=== PATIENT | female | born 1970 | race Caucasian/White ===

== ENCOUNTER → 2016-07-15 | Outpatient (CLI) | payer OTHER ==
[2016-07-15 09:53] LABS: ALT 42 U/L (9-52); AST 27 U/L (14-36); Alkaline Phosphatase 92 U/L (38-126); Anion Gap 11 mmol/L; Blood Urea Nitrogen 13 mg/dL (7-17); Calcium 9.8 mg/dL (8.4-10.2); Carbon Dioxide 27 mmol/L (22-30); Chloride 107 mmol/L (98-107); Cholesterol 221 mg/dL (<200); Glucose 93 mg/dL (74-99); HDL Cholesterol 51 mg/dL (40-60); Non-African American GFR(MDRD) >60 (>60 ml/min/1.73 sqM); Potassium 4.2 mmol/L (3.5-5.1); Sodium 145 mmol/L (137-145); Total Bilirubin 0.7 mg/dL (0.2-1.3); Total Protein 7.5 g/dL (6.3-8.2); Triglycerides 66 mg/dL (<150)
== END | disposition home or self-care (01) ==
LOC: LABWHC1 08:34
PROVIDERS: ATTEND Internal Medicine Interventional Cardiology
DX: E78.2 Mixed hyperlipidemia (principal)
CPT/HCPCS: 36415; 80053; 80061

== ENCOUNTER → 2016-07-24 | Outpatient (CLI) | payer OTHER ==
--- NOTE | 2016-07-24 10:58 | XR ---
EXAMINATION TYPE: XR knee complete RT DATE OF EXAM: 07/24/2016 10:54 AM COMPARISON: NONE HISTORY: Pain TECHNIQUE: Four views are submitted. FINDINGS: Mild narrowing and hypertrophic change medial compartment of the knee and patellofemoral joint. Osse ous structures are intact. No acute fracture seen. IMPRESSION: 1. No acute fracture or dislocation. 2. Mild osteoarthritis.
== END | disposition home or self-care (01) ==
LOC: RADXRMAIN 10:19
PROVIDERS: ATTEND Internal Medicine
DX: M17.11 Unilateral primary osteoarthritis, right knee (principal)

== ENCOUNTER → 2016-08-08 | Outpatient (CLI) | payer OTHER ==
--- NOTE | 2016-08-08 11:04 | US ---
EXAMINATION TYPE: US pelvic complete DATE OF EXAM: 08/08/2016 10:41 AM COMPARISON: CT on PACS CLINICAL HISTORY: R10.2 Pelvic Pain. Bilateral pelvic pain and dyspareunia per patient; Hysterectomy; per patient TECHNIQUE: Transabdominal (TA) Date of LMP: 12 years ago EXAM MEASUREMENTS: Uterus: surgically removed Endometrial Stripe: surgically removed Right Ovary: 2.0 x 1.5 x 1.1 cm Left Ovary: 1.7 x 1.9x 1.0 cm TECHNOLOGIST IMPRESSION: wnl 1. Uterus: surgically removed 2. Endometrium: surgically removed 3. Right Ovary: wnl; small follicles are noted 4. Left Ovary: wnl: small follicles are noted Spectral, color and waveform doppler imaging shows good arterial and venous flow within the ovaries ; there is no evidence for ovarian torsion. 5. Bilateral Adnexa: wnl 6. Posterior cul-de-sac: wnl 7. No masses seen within proximal and mid transabdominal views of vagina. IMPRESSION: STATUS POST HYSTERECTOMY.
== END ==
LOC: RADUSWWP 10:25
PROVIDERS: ATTEND Obstetrics & Gynecology
DX: R10.2 Pelvic and perineal pain (principal); Z90.710 Acquired absence of both cervix and uterus
CPT/HCPCS: 76856; 93975

== ENCOUNTER → 2016-09-12 | Outpatient (CLI) | payer OTHER ==
--- NOTE | 2016-09-13 08:04 | US ---
EXAMINATION TYPE: US thyroid st tissue head/neck DATE OF EXAM: 09/12/2016 4:31 PM COMPARISON: NONE CLINICAL HISTORY: R22.0 Localized swelling, mass and lump, head. Stopped smoking and patient felt nec k is enlarging. GLAND SIZE: Right Lobe: 5.1 x 2.1 x 1.8 cm Overall Parenchyma: homogenous Left Lobe: 0.5 x 0.3 x 0.4 cm Overall Parenchyma: homogeneous Isthmus Thickness: 0.3cm NODULES RIGHT: # of nodules measured on right: 1 1. 1.2 X 0.9 x 0.9 cm hypoechoic solid nodule at the mid pole with well-defined margins. This nodul e is wider than tall and shows intranodular vascularity. Prior size: RECOVERY COLLECTOR LEFT: # of nodules measured on left: 1 1. 0.5 X 0.4 x 0.3 cm hypoechoic solid nodule at the upper pole with well-defined margins. This nod ule is wider than tall and shows intranodular vascularity. Prior size: RECOVERY COLLECTOR ISTHMUS: # of nodules measured in the isthmus: 0 Bilateral neck scanned, 1.8cm left sided lymph node seen IMPRESSION: 1. Slight prominence of a right lobe thyroid nodule. Consider correlation with nuclear medicine thyro id scan. 2. Subcentimeter left lobe thyroid nodule. 3. No noted within the left neck is prominent at 1.8 cm in length.
== END | disposition home or self-care (01) ==
LOC: RADUSWWP 16:13
PROVIDERS: ATTEND Internal Medicine
DX: E04.1 Nontoxic single thyroid nodule (principal)
CPT/HCPCS: 76536

== ENCOUNTER 2016-09-17 17:35 | Emergency (ER) | payer OTHER ==
[2016-09-17 18:01] VITALS: BP 100/59; PULSE 70; RESP 18; TEMP 98.3
--- NOTE | 2016-09-17 18:27 | ED ---
Upper Extremity HPI - General Chief Complaint: Extremity Injury, Upper Stated Complaint: Fall Time Seen by Provider: 09/17/16 18:13 Source: patient, RN notes reviewed, old records reviewed Mode of arrival: ambulatory Limitations: no limitations - History of Present Illness Initial Comments: Patient is a 46-year-old female with chief complaint of left hand pain for the past 3 days. Patient reports that she was trying to help her having a new shower head. She reports that she was standing on the edge of the tub she lost her bouncing grabbed the shower kiah. Patient reports that she grabbed the shower with her left hand and felt a pulling sensation. She states that since then she's noticed some bruising over. She also has some tenderness over the snuffbox. Patient denies any fever or chills. She denies any decreased range of motion of the wrist hand or fingers. She states that is just tender to touch swollen and bruised. Patient states she is right-handed. Denies any other injuries from the fall. Patient denies any recent fever, chills, shortness of breath, chest pain, back pain, abdominal pain, nausea vomiting, numbness or tingling, dysuria or hematuria, constipation or diarrhea, headaches or visual changes, or any other current symptoms Place: home - Related Data Home Medications Medication Instructions Recorded Confirmed Aspirin 81 mg PO DAILY 07/12/14 12/11/15 HYDROcodone/APAP 10-325MG [Prentiss 0.5 - 1 tab PO QID PRN 10/10/15 12/11/15 10-325] Butalb/APAP/Caff 50-325-40Mg 1 tab PO DAILY PRN 12/03/15 12/11/15 [Fioricet 50-325-40] Aspirin EC [Ecotrin] 162 mg PO ONCE 12/11/15 12/11/15 Allergies Allergy/AdvReac Type Severity Reaction Status Date / Time Penicillins Allergy Rash/Hives Verified 09/17/16 18:00 pregabalin [From Lyrica] Allergy Swelling Verified 09/17/16 18:00 Review of Systems ROS Statement: Those systems with pertinent positive or pertinent negative responses have been documented in the HPI. ROS Other: All systems not noted in ROS Statement are negative. Past Medical History Past Medical History: GERD/Reflux, Hyperlipidemia Additional Past Medical History / Comment(s): FREQUENT VOMITING, LOOSE BOWELS, HX HYPOTENSION, STATES HAS CYST ON RIGHT OVARY chronic pain syndrome ddd History of Any Multi-Drug Resistant Organisms: None Reported Past Surgical History: Appendectomy, Hysterectomy Additional Past Surgical History / Comment(s): D&C Past Anesthesia/Blood Transfusion Reactions: No Reported Reaction Past Psychological History: No Psychological Hx Reported Smoking Status: Current every day smoker Past Alcohol Use History: None Reported Past Drug Use History: None Reported General Exam Limitations: no limitations General appearance: alert, in no apparent distress Head exam: Present: atraumatic, normocephalic, normal inspection Eye exam: Present: normal appearance, PERRL, EOMI. Absent: scleral icterus, conjunctival injection, periorbital swelling ENT exam: Present: normal exam, mucous membranes moist Neck exam: Present: normal inspection. Absent: tenderness, meningismus, lymphadenopathy Respiratory exam: Present: normal lung sounds bilaterally. Absent: respiratory distress, wheezes, rales, rhonchi, stridor Cardiovascular Exam: Present: regular rate, normal rhythm, normal heart sounds. Absent: systolic murmur, diastolic murmur, rubs, gallop, clicks GI/Abdominal exam: Present: soft, normal bowel sounds. Absent: distended, tenderness, guarding, rebound, rigid Extremities exam: Present: normal inspection, full ROM, normal capillary refill. Absent: tenderness, pedal edema, joint swelling, calf tenderness Left Upper Arm exam: Present: normal inspection, full ROM Elbow exam: Present: normal inspection, full ROM Forearm Wrist exam: Present: normal inspection, full ROM, tenderness over anatomical snuff box Hand Wrist exam: Present: normal inspection, full ROM, tenderness (Over the thumb and anatomical snuffbox. Evidence of bruising over the thumb.) Neuro motor exam: Present: wrist extension intact, thumb opposition intact, thumb adduction intact, fingers 2-5 abduction intact. Absent: thumb IP flexion intact (Patient has bruising over thumb and snuff box. ) Neurosensory exam: Present: 2-point discrimination Vascular: Present: normal capillary refill Back exam: Present: normal inspection Neurological exam: Present: alert, oriented X3, CN II-XII intact Psychiatric exam: Present: normal affect, normal mood Skin exam: Present: warm, dry, intact, normal color. Absent: rash Course Vital Signs 09/17/16 17:57 Temperature 98.3 F Pulse Rate 70 Respiratory 18 Rate Blood Pressure 100/59 O2 Sat by Pulse 99 Oximetry Procedures - Orthopedic Splinting/Casting Injury #1 Side: left Upper Extremity Injury Location: hand Upper Extremity Immobilizer: thumb spica Medical Decision Making - Medical Decision Making Patient is a 46-year-old female with left wrist and hand pain after a fall 2 days ago. Patient was playing on a shower edge and grabbed the shower kiah and pulled her hand and wrist patient is in some bruising over the dorsal thumb. She is tender in the snuffbox. Patient placed any thumb spica splint. Discussed with the x-ray showed no significant fractures. Patient advised to follow-up with orthopedic in one week if symptoms continue to persist. Patient grades the treatment plan will comply. Return parameters were discussed. - Radiology Data Radiology results: report reviewed Hand and wrist xray are negative. No distress. Disposition Clinical Impression: Thumb contusion, Hand strain Disposition: HOME SELF-CARE Condition: Good Instructions: Hand Sprain (ED) Additional Instructions: Patient denies any Motrin Tylenol. Patient can wear splint for the next week. Take off the splint. Reevaluate if still in pain follow-up with orthopedic physician. Referrals: Jayson Shipman MD [Primary Care Provider] - 1-2 days Time of Disposition: 18:26
--- NOTE | 2016-09-17 19:19 | XR ---
EXAMINATION TYPE: XR hand complete LT DATE OF EXAM: 09/17/2016 6:13 PM COMPARISON: NONE HISTORY: Pain TECHNIQUE: 3 view left hand FINDINGS: No acute fractures are evident. Joint spaces are preserved. Soft tissues are normal. Follow-up studies can be performed 7-10 days from acute trauma for continued pain. IMPRESSION: 1. Normal three-view left hand
--- NOTE | 2016-09-17 19:20 | XR ---
EXAMINATION TYPE: XR wrist complete LT DATE OF EXAM: 09/17/2016 6:13 PM COMPARISON: NONE HISTORY: Pain fall TECHNIQUE: 4 view left wrist FINDINGS: No acute fractures are evident. Soft tissues appear normal. There is pain at the anatomic snuff box, nuclear medicine bone scan would be recommended for addition al evaluation. Follow-up exams can be performed 7-10 days from acute trauma for continued pain. IMPRESSION: 1. Normal 4 view left wrist
== END 2016-09-17 18:34 | disposition home or self-care (01) ==
LOC: EC 17:35
DX: S66.912A Strain of unspecified muscle, fascia and tendon at wrist and hand level, left hand, initial encounter (principal); S60.012A Contusion of left thumb without damage to nail, initial encounter; G89.4 Chronic pain syndrome; Z79.82 Long term (current) use of aspirin; F17.200 Nicotine dependence, unspecified, uncomplicated; Z88.0 Allergy status to penicillin; Z88.8 Allergy status to other drugs, medicaments and biological substances; W01.0XXA Fall on same level from slipping, tripping and stumbling without subsequent striking against object, initial encounter; Y92.002 Bathroom of unspecified non-institutional (private) residence as the place of occurrence of the external cause; Y93.89 Activity, other specified
CPT/HCPCS: 29125; 99284

== ENCOUNTER → 2016-09-23 | Outpatient (CLI) | payer OTHER ==
--- NOTE | 2016-09-23 12:20 | NM ---
EXAMINATION TYPE: NM thyroid image only DATE OF EXAM: 09/23/2016 11:05 AM COMPARISON: Correlation ultrasound 09/12/2016 HISTORY: 46-year-old female with swelling TECHNIQUE: After the intravenous administration of 11.0 mCi Tc 99m Sodium pertechnetate, thyroid scan александр was performed anterior and oblique views. FINDINGS: There is homogeneous glandular activity. No discrete hot or cold nodule is seen to correspond to the ultrasound findings. IMPRESSION: Homogeneous glandular uptake.
== END | disposition home or self-care (01) ==
LOC: RADNMMAIN 10:21
PROVIDERS: ATTEND Internal Medicine
DX: E07.89 Other specified disorders of thyroid (principal); R22.0 Localized swelling, mass and lump, head; Z88.0 Allergy status to penicillin
CPT/HCPCS: 78013; A9512

== ENCOUNTER 2016-10-03 15:16 | Emergency (ER) | payer OTHER ==
[2016-10-03 15:55] VITALS: RESP 18
[2016-10-03] MEDS ORDERED: HYDROmorphone 1 MG/ML 1 ML SYRINGE IVP STA ×2 (16:01→17:12)
--- NOTE | 2016-10-03 16:13 | ED ---
General Adult HPI - General Chief complaint: Abdominal Pain Stated complaint: Neck Pain Time Seen by Provider: 10/03/16 15:33 Source: patient, RN notes reviewed Mode of arrival: wheelchair Limitations: no limitations - History of Present Illness Initial comments: patient is a 46-year-old female presents emergency room for evaluation of right- sided pain. Patient states he was cleaning her house yesterday began having pain under her ribs on the right side. Patient states the pain is worse when she takes a deep breath. Denies shortness of breath. patient denies chest pain. Patient states she has extreme pain when pressing over the right upper quadrant area. Patient denies any nausea or vomiting. Patient states that her primary care provider today and she was sent here for a CT to rule out kidney stones. patient states she was told she did not have kidney stones. Patient states she's here because she wants the pain to go away. Patient denies nausea or vomiting. Patient states she has a history of appendectomy, hysterectomy. Patient denies fevers or chills. Patient denies cough. Patient states he takes medical marijuana for chronic pain. Patient states marijuana is not helping her pain. - Related Data Home Medications Medication Instructions Recorded Confirmed Vitamin C/Biotin [Hair, Skin and 1 tab PO DAILY 10/03/16 10/03/16 Nails] Previous Rx's Medication Instructions Recorded Levofloxacin [Levaquin] 500 mg PO DAILY 6 Days 10/03/16 Allergies Allergy/AdvReac Type Severity Reaction Status Date / Time Penicillins Allergy Rash/Hives Verified 10/03/16 15:49 pregabalin [From Lyrica] Allergy Swelling Verified 10/03/16 15:49 Review of Systems ROS Statement: Those systems with pertinent positive or pertinent negative responses have been documented in the HPI. ROS Other: All systems not noted in ROS Statement are negative. Past Medical History Past Medical History: GERD/Reflux, Hyperlipidemia Additional Past Medical History / Comment(s): FREQUENT VOMITING, LOOSE BOWELS, HX HYPOTENSION, STATES HAS CYST ON RIGHT OVARY chronic pain syndrome ddd History of Any Multi-Drug Resistant Organisms: None Reported Past Surgical History: Appendectomy, Hysterectomy Additional Past Surgical History / Comment(s): D&C Past Anesthesia/Blood Transfusion Reactions: No Reported Reaction Past Psychological History: No Psychological Hx Reported Smoking Status: Former smoker Past Alcohol Use History: None Reported Past Drug Use History: Marijuana General Exam - General Exam Comments Initial Comments: sitting in exam room, no acute distress. Limitations: no limitations General appearance: alert Head exam: Present: atraumatic, normocephalic, normal inspection Eye exam: Present: normal appearance ENT exam: Present: normal exam Neck exam: Present: normal inspection Respiratory exam: Present: normal lung sounds bilaterally, chest wall tenderness (lower anterior ribs). Absent: respiratory distress Cardiovascular Exam: Present: regular rate, normal rhythm, normal heart sounds GI/Abdominal exam: Present: soft, tenderness (RUQ), normal bowel sounds. Absent : distended Extremities exam: Present: normal inspection Back exam: Present: normal inspection Neurological exam: Present: alert, oriented X3, CN II-XII intact, normal gait Psychiatric exam: Present: normal affect, normal mood Skin exam: Present: warm, dry, intact, normal color. Absent: rash Course Vital Signs 10/03/16 10/03/16 10/03/16 15:26 15:50 17:02 Temperature 99.2 F 99.3 F Pulse Rate 86 78 Respiratory 20 18 18 Rate Blood Pressure 112/56 113/59 O2 Sat by Pulse 97 97 Oximetry Medical Decision Making - Medical Decision Making Patient is a 46-year-old female presents to the emergency room for evaluation right-sided pain. I did review the CT. CT abdomen/pelvis suggestive of right lower lobe infiltrates or atelectasis and also cystitis. Labs showed no concerning findings. Will treat patient for pneumonia and cystitis and placed patient on Levaquin. Patient states she is feeling better after pain medications given. Vitals are stable. advised patient to follow-up with her primary care provider in 24-48 hours for reevaluation. Patient states she has since everything that was discussed with her. Return parameters discussed. Case discussed with Dr. Castellon. - Lab Data Result diagrams: 10/03/16 16:14 10/03/16 16:14 Lab Results 10/03/16 10/03/16 10/03/16 Range/Units 16:14 16:14 16:14 WBC 9.6 (3.8-10.6) k/uL RBC 4.37 (3.80-5.40) m/uL Hgb 14.3 (11.4-16.0) gm/dL Hct 41.7 (34.0-46.0) % MCV 95.5 (80.0-100.0) fL MCH 32.7 (25.0-35.0) pg MCHC 34.3 (31.0-37.0) g/dL RDW 11.9 (11.5-15.5) % Plt Count 260 (150-450) k/uL Neutrophils % 65 % Lymphocytes % 22 % Monocytes % 7 % Eosinophils % 2 % Basophils % 0 % Neutrophils # 6.2 (1.3-7.7) k/uL Lymphocytes # 2.1 (1.0-4.8) k/uL Monocytes # 0.7 (0-1.0) k/uL Eosinophils # 0.2 (0-0.7) k/uL Basophils # 0.0 (0-0.2) k/uL Sodium 141 (137-145) mmol/L Potassium 4.2 (3.5-5.1) mmol/L Chloride 104 (98-107) mmol/L Carbon Dioxide 27 (22-30) mmol/L Anion Gap 10 mmol/L BUN 8 (7-17) mg/dL Creatinine 0.70 (0.52-1.04) mg/dL Est GFR (MDRD) Af Amer >60 (>60 ml/min/1.73 sqM) Est GFR (MDRD) Non-Af >60 (>60 ml/min/1.73 sqM) Glucose 101 H (74-99) mg/dL Calcium 9.7 (8.4-10.2) mg/dL Total Bilirubin 0.5 (0.2-1.3) mg/dL AST 20 (14-36) U/L ALT 35 (9-52) U/L Alkaline Phosphatase 108 (38-126) U/L Total Protein 7.3 (6.3-8.2) g/dL Albumin 4.4 (3.5-5.0) g/dL Amylase 78 (30-110) U/L Lipase 194 (23-300) U/L - Radiology Data Radiology results: report reviewed, image reviewed Disposition Clinical Impression: Right lower lobe pneumonia, Cystitis Disposition: HOME SELF-CARE Condition: Good Instructions: Pneumonia (ED), Urinary Tract Infection in Women (ED) Additional Instructions: Take antibiotics as directed. Take prescribed pain medications as needed. Please follow up with primary care provider in 24-48 hours for reevaluation. If any new symptom arises or symptoms worsen, return to ER as soon as possible. Prescriptions: Levofloxacin [Levaquin] 500 mg PO DAILY 6 Days Referrals: Jayson Shipman MD [Primary Care Provider] - 1-2 days Time of Disposition: 17:09
[2016-10-03 16:32] LABS: Basophils % (A) 0 %; CH 33.3; Eosinophils # (A) 0.2 k/uL (0-0.7); Eosinophils % (A) 2 %; HCT 41.7 % (34.0-46.0); HDW 2.47; HGB 14.3 gm/dL (11.4-16.0); Luc # (Auto) 0.35; Luc % (Auto) 4; Lymphocytes # (A) 2.1 k/uL (1.0-4.8); Lymphocytes % (A) 22 %; MCH 32.7 pg (25.0-35.0); MCHC 34.3 g/dL (31.0-37.0); MCV 95.5 fL (80.0-100.0); Mean Platelet Volume 6.9; Monocytes # (A) 0.7 k/uL (0-1.0); Monocytes % (A) 7 %; Neutrophils # (A) 6.2 k/uL (1.3-7.7); Neutrophils % (A) 65 %; RBC 4.37 m/uL (3.80-5.40); RDW 11.9 % (11.5-15.5); WBC 9.6 k/uL (3.8-10.6); WBC (Perox) 9.23
[2016-10-03 16:33] LABS: ALT 35 U/L (9-52); AST 20 U/L (14-36); Alkaline Phosphatase 108 U/L (38-126); Amylase 78 U/L (30-110); Anion Gap 10 mmol/L; Blood Urea Nitrogen 8 mg/dL (7-17); Calcium 9.7 mg/dL (8.4-10.2); Carbon Dioxide 27 mmol/L (22-30); Chloride 104 mmol/L (98-107); Glucose 101 mg/dL (74-99); Non-African American GFR(MDRD) >60 (>60 ml/min/1.73 sqM); Potassium 4.2 mmol/L (3.5-5.1); Sodium 141 mmol/L (137-145); Total Bilirubin 0.5 mg/dL (0.2-1.3); Total Protein 7.3 g/dL (6.3-8.2)
[2016-10-03 17:03] VITALS: BP 113/59; PULSE 78; TEMP 99.3
[2016-10-03] MEDS ORDERED: LEVOFLOXACIN 500 MG TAB PO STA (17:12)
== END 2016-10-03 17:45 | disposition home or self-care (01) ==
LOC: EC 15:16
DX: J18.9 Pneumonia, unspecified organism (principal); N30.90 Cystitis, unspecified without hematuria; M54.2 Cervicalgia; K21.9 Gastro-esophageal reflux disease without esophagitis; Z87.891 Personal history of nicotine dependence; Z79.899 Other long term (current) drug therapy; Z88.0 Allergy status to penicillin; Z88.8 Allergy status to other drugs, medicaments and biological substances; Z90.49 Acquired absence of other specified parts of digestive tract
CPT/HCPCS: 36415; 80053; 82150; 83690; 85025; 99284; 96374; 96376; J1170; 74176

== ENCOUNTER → 2016-10-03 | Outpatient (CLI) | payer OTHER ==
--- NOTE | 2016-10-03 14:28 | CT ---
EXAMINATION TYPE: CT abdomen pelvis wo con DATE OF EXAM: 10/03/2016 2:15 PM COMPARISON: 06/21/2013 HISTORY: Patient having right sided pain, severe CT DLP: 871 mGycm FINDINGS: LUNG BASES: Tiny right-sided pleural effusion with mild patchy density right lower lobe may reflect a telectasis or infiltrate. Correlate clinically. LIVER/GB: The gallbladder is unremarkable. No space-occupying hepatic lesion. PANCREAS: No pancreatic mass identified. No inflammatory process seen. SPLEEN: No evidence for splenomegaly. No intrasplenic lesions seen. ADRENALS: No adrenal nodules identified. No evidence for thickening. KIDNEYS: No evidence for renal mass. No nephrolithiasis. No hydronephrosis. Mild urinary bladder wall thickening may be on the basis of cystitis. Correlate clinically. BOWEL: Previous appendectomy change. No evidence of bowel obstruction. No inflammatory process. Lymph nodes: No evidence for adenopathy greater than 1 cm. Abdominal aorta: Atheromatous changes seen. No evidence for aneurysm. Genital organs: Hysterectomy changes noted. Other: No significant abnormality. IMPRESSION: 1.. Mild urinary bladder wall thickening may be on the basis of cystitis. Correlate clinically. 2. SMALL RIGHT LOWER LOBE PATCHY DENSITY MAY REFLECT INFILTRATE OR ATELECTASIS. SMALL EFFUSION ALSO N OTED.
== END | disposition home or self-care (01) ==
LOC: RADCTMAIN 13:55
PROVIDERS: ATTEND Internal Medicine
DX: N32.89 Other specified disorders of bladder (principal); R31.9 Hematuria, unspecified; R10.9 Unspecified abdominal pain; Z88.0 Allergy status to penicillin; Z88.6 Allergy status to analgesic agent
CPT/HCPCS: 74176

== ENCOUNTER 2017-01-06 14:50 | Emergency (ER) | payer OTHER ==
--- NOTE | 2017-01-06 15:21 | ED ---
General Adult HPI - General Chief complaint: Extremity Injury, Lower Stated complaint: Vericose Vein L leg Time Seen by Provider: 01/06/17 14:59 Source: patient Mode of arrival: ambulatory Limitations: no limitations - History of Present Illness Initial comments: 46 year-old female patient presents to emergency department today for evaluation of a distended vein on her anterior left lower leg. Patient ate about 20 minutes ago her legs started to itch and burn, she looked down and saw that the vein had popped out. Patient states that it is hard to touch. She states that she has pain radiating from the site up into her groin and down into her foot. Patient denies any numbness or tingling. States she does have a history of varicose veins but this seems different. She denies any chest pain , headache, dizziness, weakness, shortness of breath, palpitations, abdominal pain, nausea, vomiting, diarrhea, hematuria, dysuria, urinary frequency or urgency. She denies any rash, fever, or chills. Patient states she does have a family history of blood clots and is concerned that she may have one. - Related Data Home Medications Medication Instructions Recorded Confirmed Vitamin C/Biotin [Hair, Skin and 1 tab PO DAILY 10/03/16 10/03/16 Nails] Previous Rx's Medication Instructions Recorded Levofloxacin [Levaquin] 500 mg PO DAILY 6 Days 10/03/16 Allergies Allergy/AdvReac Type Severity Reaction Status Date / Time Penicillins Allergy Rash/Hives Verified 01/06/17 14:59 pregabalin [From Lyrica] Allergy Swelling Verified 01/06/17 14:59 Review of Systems ROS Statement: Those systems with pertinent positive or pertinent negative responses have been documented in the HPI. ROS Other: All systems not noted in ROS Statement are negative. Past Medical History Past Medical History: GERD/Reflux, Hyperlipidemia Additional Past Medical History / Comment(s): FREQUENT VOMITING, LOOSE BOWELS, HX HYPOTENSION, STATES HAS CYST ON RIGHT OVARY chronic pain syndrome ddd History of Any Multi-Drug Resistant Organisms: None Reported Past Surgical History: Appendectomy, Hysterectomy Additional Past Surgical History / Comment(s): D&C Past Anesthesia/Blood Transfusion Reactions: No Reported Reaction Past Psychological History: No Psychological Hx Reported Smoking Status: Former smoker Past Alcohol Use History: None Reported Past Drug Use History: Marijuana General Exam Limitations: no limitations General appearance: alert, in no apparent distress Respiratory exam: Present: normal lung sounds bilaterally. Absent: respiratory distress, wheezes, rales, rhonchi, stridor Cardiovascular Exam: Present: regular rate, normal rhythm, normal heart sounds. Absent: systolic murmur, diastolic murmur, rubs, gallop, clicks GI/Abdominal exam: Present: soft, normal bowel sounds. Absent: distended, tenderness, guarding, rebound, rigid Extremities exam: Present: full ROM, normal capillary refill, other (Skin pink, warm, and dry. Cap refill less than 3 seconds. Post tibial and pedal pulses intact and equal bilaterally.). Absent: normal inspection (Patient has a distended vein to the anterior left lower leg. No surrounding erythema, tenderness, area does feel indurated. Patient has other multiple areas of varicose veins posterior to the right upper thigh.), tenderness, pedal edema, joint swelling, calf tenderness Neurological exam: Present: alert, oriented X3, CN II-XII intact Psychiatric exam: Present: normal affect, normal mood Skin exam: Present: warm, dry, intact, normal color. Absent: rash Course Vital Signs 01/06/17 01/06/17 14:56 17:06 Temperature 98.2 F 97.6 F Pulse Rate 71 68 Respiratory 18 16 Rate Blood Pressure 104/68 105/72 O2 Sat by Pulse 98 98 Oximetry Medical Decision Making - Medical Decision Making Reported sexual female patient presents to emergency department today for evaluation of a distended vein to her left anterior lower leg. Ultrasound Doppler was obtained and did showed superficial thrombophlebitis to the left lower extremity. Patient was discharged home with injections to wear her SHAUNA hose which she does already have, take ibuprofen 3 times a day, and apply warm compresses to the site. Patient struck to the father primary care physician in one to 2 days for recheck. Instructed to return immediately for any new, worsening, or concerning symptoms. Patient verbalizes understanding and agrees with this plan. Disposition Clinical Impression: Varicose veins of left lower extremity, Acute superficial venous thrombosis of left lower extremity Disposition: HOME SELF-CARE Condition: Good Instructions: Varicose Veins (ED), Superficial Thrombophlebitis (ED) Additional Instructions: Warm compresses to painful/swollen area. Wear SHAUNA hose. Take ibuprofen for symptom relief. Follow-up with primary care physician for recheck in 1-2 days. Return immediately for any new, worsening, or concerning symptoms. Referrals: Jayson Shipman MD [Primary Care Provider] - 1-2 days Time of Disposition: 17:03
--- NOTE | 2017-01-06 17:01 | US ---
EXAMINATION TYPE: US venous doppler duplex LE LT DATE OF EXAM: 01/06/2017 3:38 PM COMPARISON: NONE CLINICAL HISTORY: 46-year-old female Varicose vein on left anterior arreguin. SIDE PERFORMED: Left TECHNIQUE: The lower extremity deep venous system is examined utilizing real time linear array sonog amaris with graded compression, doppler sonography and color-flow sonography. FINDINGS: VESSELS IMAGED: External Iliac Vein (EIV) Common Femoral Vein Deep Femoral Vein Greater Saphenous Vein * Femoral Vein Popliteal Vein Small Saphenous Vein * Proximal Calf Veins (* superficial vessels) Left Leg: Negative for DVT. There is some mild soft tissue swelling of the anterior left leg. There appears to be a thrombosed, n oncompressible superficial vein here. IMPRESSION: 1. No evidence for DVT within the left lower extremity imaged from the groin to the upper calf. 2. Findings suggest SVT of a small anterior leg vein.
[2017-01-06 17:07] VITALS: BP 105/72; PULSE 68; RESP 16; TEMP 97.6
== END 2017-01-06 17:12 | disposition home or self-care (01) ==
LOC: EC 14:50
DX: I82.812 Embolism and thrombosis of superficial veins of left lower extremity (principal); I83.893 Varicose veins of bilateral lower extremities with other complications; I80.02 Phlebitis and thrombophlebitis of superficial vessels of left lower extremity; Z87.891 Personal history of nicotine dependence; Z79.899 Other long term (current) drug therapy; Z88.0 Allergy status to penicillin; Z88.8 Allergy status to other drugs, medicaments and biological substances; Z82.49 Family history of ischemic heart disease and other diseases of the circulatory system
CPT/HCPCS: 99283

== ENCOUNTER → 2017-02-03 | Outpatient (CLI) | payer OTHER | END | disposition home or self-care (01) | LOC: LABWHC1 14:20 | PROVIDERS: ATTEND Internal Medicine Endocrinology, Diabetes & Metabolism | DX: E04.2 Nontoxic multinodular goiter (principal) | CPT/HCPCS: 36415; 84439; 84443 ==

== ENCOUNTER → 2017-02-09 | Outpatient (CLI) | payer OTHER ==
--- NOTE | 2017-02-09 11:29 | FL ---
EXAMINATION TYPE: FL barium swallow w video DATE OF EXAM: 02/09/2017 MODIFIED SWALLOW / DEGLUTITION STUDY CLINICAL HISTORY: Dysphagia. Globus sensation per patient. TECHNIQUE: Deglutition study is performed utilizing thin liquid barium, honey and nectar thick liqui d barium, barium thick applesauce, and barium coated cracker. 56 seconds of fluoroscopic time was uti lized during procedure. Approximately 10 cine sequences were performed. 0 spot images are saved to PA CS. COMPARISON: None. FINDINGS: The oral and pharyngeal phases show satisfactory initiation and propagation with all modali ties tested. Normal mastication is seen with solid modalities tested. There is no evidence of penet ration or aspiration with any modality tested. No significant pharyngeal residue was appreciated. IMPRESSION: Normal deglutition study. Please refer to speech therapist notes for further details if necessary.
== END | disposition home or self-care (01) ==
LOC: RADFLMAIN 10:57
PROVIDERS: ATTEND Internal Medicine
DX: R13.10 Dysphagia, unspecified (principal)
CPT/HCPCS: 74230

== ENCOUNTER → 2017-03-13 | Outpatient (CLI) | payer OTHER ==
--- NOTE | 2017-03-13 16:27 | US ---
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 GLAND SIZE: Right Lobe: 4.9 x 2.3 x 1.2 cm Overall Parenchyma: heterogenous Left Lobe: 4.7 x 1.6 x 1.8 cm Overall Parenchyma: heterogeneous Isthmus Thickness: 0.4 cm NODULES RIGHT: # of nodules measured on right: 1 1. 1.2 X 0.6 x 0.7 cm isoechoic solid nodule at the upper pole with well-defined margins; . This n odule is wider than tall and shows intranodular vascularity. Prior size: 1.2 x 0.9 x 1.0 cm LEFT: # of nodules measured on left: 0 ISTHMUS: # of nodules measured in the isthmus: 0 Bilateral neck scanned, no evidence of lymphadenopathy. Gland is heterogeneous and bulbous appearing. IMPRESSION: Stable nodule right lobe thyroid
== END | disposition home or self-care (01) ==
LOC: LABWHC1 14:47
PROVIDERS: ATTEND Internal Medicine Endocrinology, Diabetes & Metabolism
DX: E04.1 Nontoxic single thyroid nodule (principal); E04.2 Nontoxic multinodular goiter
CPT/HCPCS: 36415; 76536; 84439; 84443

== ENCOUNTER → 2017-06-03 | Outpatient (CLI) | payer OTHER | END | disposition home or self-care (01) | LOC: LABWHC1 08:01 | PROVIDERS: ATTEND Internal Medicine Endocrinology, Diabetes & Metabolism | DX: E03.8 Other specified hypothyroidism (principal) | CPT/HCPCS: 36415; 84443 ==

== ENCOUNTER → 2017-07-20 | Outpatient (CLI) | payer OTHER ==
[2017-07-20 12:53] LABS: T4, Free (Free Thyroxine) 1.45 ng/dL (0.78-2.19)
== END | disposition home or self-care (01) ==
LOC: LABWHC1 11:38
PROVIDERS: ATTEND Internal Medicine Endocrinology, Diabetes & Metabolism
DX: E04.2 Nontoxic multinodular goiter (principal); E03.8 Other specified hypothyroidism
CPT/HCPCS: 36415; 84439; 84443

== ENCOUNTER → 2017-09-23 | Outpatient (CLI) | payer OTHER | END | disposition home or self-care (01) | LOC: LABWHC1 11:32 | PROVIDERS: ATTEND Internal Medicine Endocrinology, Diabetes & Metabolism | DX: E03.8 Other specified hypothyroidism (principal) | CPT/HCPCS: 36415; 84443 ==

== ENCOUNTER → 2017-10-26 | Outpatient (CLI) | payer OTHER | END | disposition home or self-care (01) | LOC: LABWHC1 10:27 | PROVIDERS: ATTEND Internal Medicine Endocrinology, Diabetes & Metabolism | DX: E03.8 Other specified hypothyroidism (principal) | CPT/HCPCS: 36415; 84443 ==

== ENCOUNTER 2017-12-08 07:19 | Emergency (ER) | payer OTHER ==
--- NOTE | 2017-12-08 07:44 | ED ---
Lower Extremity Injury HPI - General Chief Complaint: Extremity Injury, Lower Stated Complaint: left foot pain Time Seen by Provider: 12/08/17 07:35 Source: patient, RN notes reviewed Mode of arrival: ambulatory Limitations: no limitations - History of Present Illness Initial Comments: This is a 47-year-old female presents emergency Department with chief complaint of left foot pain. She states has been going on for several months. She did see her PCP for it and told her that it would be fine did not have any x-rays. Patient states that the pain has been getting worse and states that she has no relief with rest at this time. Patient states that the pain is on her lateral aspect and medial aspect. Patient states that pain is much worse with ambulation. She uses [facility] for other 4 and has had injections states that she does not want to go down that road. Patient states that she is not taking antibiotics for his foot. - Related Data Home Medications Medication Instructions Recorded Confirmed Pcpgpwz-Zvio-Vzma [id number] 1 tab PO Q6HR PRN 12/08/17 12/08/17 [Excedrin] Levothyroxine Sodium [Synthroid] 88 mcg PO DAILY 12/08/17 12/08/17 Previous Rx's Medication Instructions Recorded predniSONE 50 mg PO DAILY #5 tab 12/08/17 Allergies Allergy/AdvReac Type Severity Reaction Status Date / Time gabapentin Allergy Swelling Verified 12/08/17 07:44 naproxen [From Naprosyn] Allergy Verified 12/08/17 07:44 Penicillins Allergy Rash/Hives Verified 12/08/17 07:30 pregabalin [From Lyrica] Allergy Swelling Verified 12/08/17 07:30 Review of Systems ROS Statement: Those systems with pertinent positive or pertinent negative responses have been documented in the HPI. ROS Other: All systems not noted in ROS Statement are negative. Past Medical History Past Medical History: GERD/Reflux, Hyperlipidemia, Thyroid Disorder Additional Past Medical History / Comment(s): FREQUENT VOMITING, LOOSE BOWELS, HX HYPOTENSION, STATES HAS CYST ON RIGHT OVARY chronic pain syndrome ddd History of Any Multi-Drug Resistant Organisms: None Reported Past Surgical History: Appendectomy, Hysterectomy Additional Past Surgical History / Comment(s): D&C Past Anesthesia/Blood Transfusion Reactions: No Reported Reaction Past Psychological History: No Psychological Hx Reported Smoking Status: Former smoker Past Alcohol Use History: None Reported Past Drug Use History: Marijuana General Exam Limitations: no limitations General appearance: alert, in no apparent distress Head exam: Present: atraumatic, normocephalic, normal inspection Respiratory exam: Present: normal lung sounds bilaterally. Absent: respiratory distress, wheezes, rales, rhonchi, stridor Cardiovascular Exam: Present: regular rate, normal rhythm, normal heart sounds. Absent: systolic murmur, diastolic murmur, rubs, gallop, clicks Extremities exam: Present: other (Left foot there is tenderness on lateral medial aspect especially across the arch of the foot. The foot is neurovascular intact there is no malleoli tenderness or tenderness across the Achilles region.) Skin exam: Present: warm, dry, intact, normal color. Absent: rash Course Vital Signs 12/08/17 07:29 Temperature 98.1 F Pulse Rate 77 Respiratory 16 Rate Blood Pressure 100/69 O2 Sat by Pulse 99 Oximetry Medical Decision Making - Medical Decision Making 47-year-old female presented for left foot pain. His been ongoing issue. Patient symptoms more related to plantar fasciitis and tendinitis. Patient states will be given steroids, advised pickup for orthotics will follow-up with Dr. Dejesus. Disposition Clinical Impression: Tendinitis of left foot, Plantar fasciitis Disposition: HOME SELF-CARE Condition: Stable Instructions: Tendinitis (ED), Plantar Fasciitis (ED) Additional Instructions: Please return to the Emergency Department if symptoms worsen or any other concerns. Prescriptions: predniSONE 50 mg PO DAILY #5 tab Is patient prescribed a controlled substance at d/c from ED?: No Referrals: Jayson Shipman MD [Primary Care Provider] - 1-2 days Aldair Dejesus MD [Medical Doctor] - 1-2 days Time of Disposition: 08:44
--- NOTE | 2017-12-08 08:01 | XR ---
EXAMINATION TYPE: XR foot complete LT DATE OF EXAM: 12/08/2017 CLINICAL HISTORY: Left foot pain. TECHNIQUE: Frontal, lateral, and oblique images of the left foot are obtained. COMPARISON: None FINDINGS: There is no acute fracture/dislocation evident in the left foot. The joint spaces in the left foot appear within normal limits. Moderate size inferior calcaneal spur is present. Mild diffus e subcutaneous edema along plantar surface at hind foot level is seen. IMPRESSION: There is moderate size inferior calcaneal spur.
[2017-12-08] MEDS ORDERED: ACET/COD 300 MG/30 MG STARTER PACK 6 TAB BTL PO STA (08:44)
[2017-12-08 09:07] VITALS: BP 100/56; PULSE 88; RESP 20; TEMP 98.3
== END 2017-12-08 09:00 | disposition home or self-care (01) ==
LOC: EC 07:19
DX: M72.2 Plantar fascial fibromatosis (principal); M77.52 Other enthesopathy of left foot and ankle; E07.9 Disorder of thyroid, unspecified; G89.4 Chronic pain syndrome; Z87.891 Personal history of nicotine dependence; Z79.899 Other long term (current) drug therapy; Z88.0 Allergy status to penicillin; Z88.6 Allergy status to analgesic agent; Z88.8 Allergy status to other drugs, medicaments and biological substances
CPT/HCPCS: 99283

== ENCOUNTER → 2018-02-26 | Outpatient (CLI) | payer OTHER | LOC: LABWHC1 08:19 | PROVIDERS: ATTEND Internal Medicine Endocrinology, Diabetes & Metabolism | DX: E03.8 Other specified hypothyroidism (principal) | CPT/HCPCS: 36415; 84443 ==

== ENCOUNTER → 2018-03-10 | Outpatient (CLI) | payer OTHER ==
--- NOTE | 2018-03-10 13:42 | US ---
EXAMINATION TYPE: US thyroid st tissue head/neck DATE OF EXAM: 03/10/2018 COMPARISON: Thyroid ultrasound March 13, 2017 CLINICAL HISTORY: E04.2 MULTINODULAR GOITER. GLAND SIZE: Right Lobe: 4.2 x 1.3 x 1.9 cm Overall Parenchyma: heterogenous with nodular borders Left Lobe: 3.4 x 1.2 x 1.4 cm Overall Parenchyma: heterogeneous with nodular borders Isthmus Thickness: 0.3 cm NODULES RIGHT: # of nodules measured on right: 1 1. 1.1 X 0.8 x 0.8 cm hypoechoic mixed nodule at the upper lateral pole with well-defined margins; . This nodule is wider as is tall and shows intranodular vascularity. Prior size: 1.2 x 0.6 x 0.7 cm LEFT: # of nodules measured on left: 0 ISTHMUS: # of nodules measured in the isthmus: 0 Bilateral neck scanned: no evidence of lymphadenopathy Heterogeneous normal-sized thyroid remains present with stable 1.1 cm peripheral hypoechoic solid nod ule upper pole right thyroid. No significant change. No new nodules are evident. IMPRESSION: Overall stable findings, stable 1.1 cm right thyroid nodule. No new nodules are present.
== END | disposition home or self-care (01) ==
LOC: RADUSWWP 09:58
PROVIDERS: ATTEND Internal Medicine Endocrinology, Diabetes & Metabolism
DX: E04.1 Nontoxic single thyroid nodule (principal)
CPT/HCPCS: 76536

== ENCOUNTER → 2018-04-19 | Outpatient (CLI) | payer OTHER ==
--- NOTE | 2018-04-20 08:07 | MR ---
EXAMINATION TYPE: MR brain/cspine wo DATE OF EXAM: 04/19/2018 COMPARISON: Prior MRI cervical spine March 09, 2013. Prior CT brain October 01, 2012. HISTORY: Headaches, neck pain, rt arm weakness x 4 yrs TECHNIQUE: Multiplanar, multisequence imaging of the cervical spine, brain, and brainstem are all per formed without IV contrast. FINDINGS: BRAIN: Diffusion weighted images demonstrate no evidence of a recent infarct or other diffusion abnormality. There is no extraaxial fluid collection or significant white matter signal abnormality. The ventricu lar system and cisternal spaces are normal in size and appearance. The brain volume is age appropria te. Midline structures demonstrate normal morphology. The craniocervical junction appears within normal limits. Normal vascular flow voids are present. There are few small mucous retention cysts and/or karina yps in the inferior aspect of bilateral maxillary sinuses with mild to minimal left greater than righ t mucosal thickening otherwise paranasal sinuses are clear. The globes are intact bilaterally. IMPRESSION: Incidental mild chronic inferior maxillary sinus disease otherwise unremarkable study. C-SPINE: FINDINGS: Sagittal images of the cervical spine show the craniocervical junction to appear within nor mal limits. The cervical and upper thoracic spinal cord is normal in course, caliber, and signal. V ertebral alignment is anatomic. There is mild disc space narrowing with posterior disc herniations mi ldly effacing anterior thecal sac on sagittal images at C5-C6 and C6-C7 levels redemonstrated. The v ertebral body and intravertebral disk heights otherwise are normal. The bone marrow signal intensity is within normal limits. Axial images show the C2-C3 level to appear within normal limits. Axial images at C3-C4 level show some uncovertebral facet degenerative changes bilaterally with tiny right foraminal disc protrusion, there is mild bilateral neural foraminal narrowing now present. Axial images at C4-C5 level are felt to remain within normal limits. Axial images at C5-C6 level show posterior spur disc complex effacing anterior thecal sac and causing [id number] bilateral neural foraminal narrowing. Finding slightly more prominent versus prior. Axial images at C6-C7 level show posterior spur disc complex effacing anterior thecal sac and causing moderate to advanced left-sided neural foraminal narrowing and mild right-sided neural foraminal ivonne rowing. Progression from prior study is noted. Axial images at C7-T1 level are felt to remain within normal limits. IMPRESSION: Multilevel degenerative changes in the cervical spine with progression from 2013 MRI, mos t prominent findings are noted C6-C7 level.
== END | disposition home or self-care (01) ==
LOC: RADMRIMAIN 19:32
PROVIDERS: ATTEND Internal Medicine
DX: M50.31 Other cervical disc degeneration, high cervical region (principal)
CPT/HCPCS: 70551; 72141

== ENCOUNTER → 2018-07-02 | Outpatient (CLI) | payer OTHER | END | disposition home or self-care (01) | LOC: LABWHC1 09:30 | PROVIDERS: ATTEND Internal Medicine Endocrinology, Diabetes & Metabolism | DX: E03.8 Other specified hypothyroidism (principal); R53.83 Other fatigue | CPT/HCPCS: 36415; 83001 ==

== ENCOUNTER → 2018-07-15 | Outpatient (CLI) | payer OTHER ==
--- NOTE | 2018-07-15 09:18 | CT ---
EXAMINATION TYPE: CT chest wo con DATE OF EXAM: 07/15/2018 COMPARISON: None HISTORY: Left sided rib pain-under left breast and lower CT DLP: 151 mGycm High-resolution noncontrast CT of the chest was performed with the patient in the prone and supine po sitions. Lung and mediastinal window settings are submitted. The lungs appear to be well-aerated. There is no evidence for bronchiectasis, groundglass infiltra te, nodule or mass. Parenchymal scar noted at the right lung base as well as the right middle lobe. M ild scattered subpleural fibrosis within the upper lobes. Mild emphysematous changes noted. No pleura l effusion is identified. I do not see evidence for hilar or mediastinal mass or adenopathy. IMPRESSION: 1. Minimal subpleural fibrosis within the upper lobes. 2 mild emphysematous changes.
== END | disposition home or self-care (01) ==
LOC: RADCTMAIN 08:17
PROVIDERS: ATTEND Internal Medicine
DX: J43.9 Emphysema, unspecified (principal); J94.1 Fibrothorax; R07.9 Chest pain, unspecified; Z88.0 Allergy status to penicillin; Z88.6 Allergy status to analgesic agent; Z88.8 Allergy status to other drugs, medicaments and biological substances
CPT/HCPCS: 71250

== ENCOUNTER → 2018-10-14 | Outpatient (CLI) | payer OTHER ==
--- NOTE | 2018-10-14 08:53 | US ---
EXAMINATION TYPE: US thyroid st tissue head/neck DATE OF EXAM: 10/14/2018 COMPARISON: NONE CLINICAL HISTORY: E04.1 SINGLE THYROID NODULE. GLAND SIZE: Right Lobe: cm Overall Parenchyma: Left Lobe: cm Overall Parenchyma: Isthmus Thickness: cm NODULES RIGHT: # of nodules measured on right: 1. X x cm nodule at the pole with margins; . This nodule is and shows . Prior size: x x cm 2. X x cm nodule at the pole with margins; . This nodule is and shows . Prior size: x x cm 3. X x cm nodule at the pole with margins; . This nodule is and shows . Prior size: x x cm 4. X x cm nodule at the pole with margins; . This nodule is and shows . Prior size: x x cm LEFT: # of nodules measured on left: 1. X x cm nodule at the pole with margins; . This nodule is and shows . Prior size: x x cm 2. X x cm nodule at the pole with margins; . This nodule is and shows . Prior size: x x cm 3. X x cm nodule at the pole with margins; . This nodule is and shows . Prior size: x x cm 4. X x cm nodule at the pole with margins; . This nodule is and shows . Prior size: x x cm ISTHMUS: # of nodules measured in the isthmus: 1. X x cm nodule at the pole with margins; . This nodule is and shows . Prior size: x x cm Bilateral neck scanned, no evidence of lymphadenopathy. IMPRESSION: EXAMINATION TYPE: US thyroid st tissue head/neck DATE OF EXAM: 10/14/2018 COMPARISON: 03/10/2018 and 03/13/2017 CLINICAL HISTORY: E04.1 SINGLE THYROID NODULE. GLAND SIZE: Right Lobe: 4.2 x 1.7 x 1.3 cm Overall Parenchyma: heterogenous Left Lobe: 4.0 x 1.1 x 1.3 cm Overall Parenchyma: heterogeneous Isthmus Thickness: 0.4 cm NODULES RIGHT: # of nodules measured on right: 1 1. 1.0 x 0.6 x 0.7 cm hypoechoic solid nodule at the upper pole with well-defined margins. This no dule is wider than tall and shows intranodular vascularity. Prior size: 1.1 x 0.8 x 0.8 cm LEFT: # of nodules measured on left: 0 ISTHMUS: # of nodules measured in the isthmus: 0 Bilateral neck scanned, no evidence of lymphadenopathy. IMPRESSION: Similar size of the solitary right thyroid nodule measuring up to 1.0 cm (previously 1.1 cm). No new nodules.
[2018-10-14 10:11] LABS: T4, Free (Free Thyroxine) 1.65 ng/dL (0.78-2.19)
== END | disposition home or self-care (01) ==
LOC: RADUSWWP 07:53
PROVIDERS: ATTEND Internal Medicine Endocrinology, Diabetes & Metabolism
DX: E04.1 Nontoxic single thyroid nodule (principal)
CPT/HCPCS: 36415; 76536; 84439; 84443

== ENCOUNTER → 2019-03-15 | Outpatient (CLI) | payer OTHER ==
[2019-03-16 00:57] LABS: T4, Free (Free Thyroxine) 1.3 ng/dL (0.80-1.80)
== END | disposition home or self-care (01) ==
LOC: LABWHC1 16:37
PROVIDERS: ATTEND Internal Medicine Endocrinology, Diabetes & Metabolism
DX: E03.8 Other specified hypothyroidism (principal)
CPT/HCPCS: 36415; 84439; 84443

== ENCOUNTER 2019-04-08 12:45 | Emergency (ER) | payer OTHER ==
[2019-04-08 12:50] VITALS: RESP 18; TEMP 97.8
[2019-04-08] MEDS ORDERED: METOCLOPRAMIDE 5 MG/ML 2 ML VIAL IVP STA (12:52)
[2019-04-08] MEDS ORDERED: diphenhydrAMINE 50 MG/ML 1 ML VIAL IVP STA (12:52)
[2019-04-08] MEDS ORDERED: SODIUM CHLORIDE 0.9% 1,000 ML IV STA (12:53)
--- NOTE | 2019-04-08 12:56 | ED ---
General Adult HPI - General Chief complaint: Headache Stated complaint: headache Time Seen by Provider: 04/08/19 12:51 Source: patient Mode of arrival: ambulatory Limitations: no limitations - History of Present Illness Initial comments: Patient is a 48-year-old female with history of headaches presents emergency Department with chief complaint of a headache. Patient reports she has been having headaches for about 1.5 years. Patient reports she has been to multiple specialists who diagnosed her with a thyroid pathology. However, patient reports the headaches have not resolved. Patient reports having multiple imaging studies in her head with unremarkable results. Patient reports she does not take any medication for the headaches aside from [id number] analgesia. Patient reports typically she develops about 4 days of a headache associated with nausea vomiting and photosensitivity follow by a period of 2-3 weeks with no symptoms. Patient denies any visual disturbances but does report blurry vision although states that is her baseline whenever these headaches 7. Patient denies any numbness or tingling. Patient denies any gait instability. Patient denies any chest pain shortness of breath back pain or abdominal pain. Patient denies any neck stiffness, tenderness night sweats fevers or chills. - Related Data Home Medications Medication Instructions Recorded Confirmed Hodnlub-Qhpa-Dklv [id number] 1 tab PO Q6HR PRN 12/08/17 12/08/17 [Excedrin] Levothyroxine Sodium [Synthroid] 88 mcg PO DAILY 12/08/17 12/08/17 Previous Rx's Medication Instructions Recorded predniSONE 50 mg PO DAILY #5 tab 12/08/17 Ondansetron Odt [Zofran Odt] 4 mg PO Q8HR PRN #10 tab 04/08/19 Allergies Allergy/AdvReac Type Severity Reaction Status Date / Time gabapentin Allergy Swelling Verified 04/08/19 12:46 naproxen [From Naprosyn] Allergy Unknown Verified 04/08/19 12:46 Penicillins Allergy Rash/Hives Verified 04/08/19 12:46 pregabalin [From Lyrica] Allergy Swelling Verified 04/08/19 12:46 Review of Systems ROS Statement: Those systems with pertinent positive or pertinent negative responses have been documented in the HPI. ROS Other: All systems not noted in ROS Statement are negative. Past Medical History Past Medical History: GERD/Reflux, Hyperlipidemia, Thyroid Disorder Additional Past Medical History / Comment(s): FREQUENT VOMITING, LOOSE BOWELS, HX HYPOTENSION, STATES HAS CYST ON RIGHT OVARY chronic pain syndrome ddd History of Any Multi-Drug Resistant Organisms: None Reported Past Surgical History: Appendectomy, Hysterectomy Additional Past Surgical History / Comment(s): D&C, vein removal Past Anesthesia/Blood Transfusion Reactions: No Reported Reaction Past Psychological History: No Psychological Hx Reported Smoking Status: Current every day smoker Past Alcohol Use History: None Reported Past Drug Use History: Marijuana General Exam - General Exam Comments Initial Comments: Neuro exam unremarkable. Limitations: no limitations General appearance: alert, in no apparent distress Head exam: Present: atraumatic, normocephalic, normal inspection Eye exam: Present: normal appearance, PERRL, EOMI Pupils: Present: normal accommodation ENT exam: Present: normal exam, normal oropharynx, mucous membranes moist, TM's normal bilaterally, normal external ear exam Neck exam: Present: normal inspection, full ROM Respiratory exam: Present: normal lung sounds bilaterally Cardiovascular Exam: Present: regular rate, normal rhythm, normal heart sounds Extremities exam: Present: normal inspection, full ROM, normal capillary refill Back exam: Present: normal inspection, full ROM Neurological exam: Present: alert, oriented X3, CN II-XII intact, normal gait, reflexes normal Psychiatric exam: Present: normal affect, normal mood Skin exam: Present: warm, dry, intact, normal color Course Vital Signs 04/08/19 04/08/19 04/08/19 12:46 13:18 14:33 Temperature 97.8 F 97.8 F Pulse Rate 72 68 68 Respiratory 18 18 18 Rate Blood Pressure 111/62 108/57 108/57 O2 Sat by Pulse 100 99 99 Oximetry Medical Decision Making - Medical Decision Making Patient is a 48-year-old female with history of headaches is presenting to the emergency department with chief complaint of a headache. Patient reports this headache is exactly like her other headaches that have been ongoing for about 1.5 years. Patient does have photosensitivity nausea or vomiting. Suspect the patient to have a migraine. Patient was given Reglan, Benadryl, steroids and magnesium. Patient was also given 1 L of fluids. On reevaluation patient reports an improvement in her symptoms and is ready go home. Patient will be discharged with Zofran. Strict return parameters were thoroughly discussed with patient was understanding and agreeable. Patient advised to follow-up with primary care. Case discussed with physician. Disposition Clinical Impression: Migraine without aura Disposition: HOME SELF-CARE Condition: Stable Instructions (If sedation given, give patient instructions): Acute Headache (ED) Additional Instructions: Please take prescribed medication as directed. Please follow up with primary care. Patient to emergency department if symptoms worsen. Prescriptions: Ondansetron Odt [Zofran Odt] 4 mg PO Q8HR PRN #10 tab PRN Reason: Nausea Is patient prescribed a controlled substance at d/c from ED?: No Referrals: Jayson Shipman MD [Primary Care Provider] - 1-2 days Time of Disposition: 14:29
[2019-04-08 13:19] VITALS: BP 108/57; PULSE 68
[2019-04-08] MEDS ORDERED: DEXAMETHASONE SOD PHOSPHATE 10 MG/ML 1 ML VIAL IV STA (13:32)
[2019-04-08] MEDS ORDERED: MAGNESIUM SULFATE-D5W PMX 1 GM in DEXTROSE/WATER 1 100ML.BAG IVPB ONE (13:33)
== END 2019-04-08 14:37 | disposition home or self-care (01) ==
LOC: EC 12:45
DX: G43.009 Migraine without aura, not intractable, without status migrainosus (principal); G89.4 Chronic pain syndrome; E07.9 Disorder of thyroid, unspecified; F17.200 Nicotine dependence, unspecified, uncomplicated; Z88.0 Allergy status to penicillin; Z88.6 Allergy status to analgesic agent; Z88.8 Allergy status to other drugs, medicaments and biological substances; Z79.82 Long term (current) use of aspirin; Z79.890 Hormone replacement therapy
CPT/HCPCS: 99283; 96365; 96375 ×3; 96361; J1200; J1100; J2765; J3475

== ENCOUNTER → 2019-11-17 | Outpatient (CLI) | payer OTHER ==
--- NOTE | 2019-11-17 12:21 | US ---
EXAMINATION TYPE: US thyroid st tissue head/neck DATE OF EXAM: 11/17/2019 COMPARISON: US 10/14/2018 CLINICAL HISTORY: E04.1 SINGLE THYROID NODULE. GLAND SIZE: Right Lobe: 3.9 x 1.3 x 1.3 cm Overall Parenchyma: heterogenous Left Lobe: 3.1 x 0.9 x 1.2 cm Overall Parenchyma: heterogeneous Isthmus Thickness: cm NODULES RIGHT: # of nodules measured on right: 1 1. 0.8 X 0.6 x 0.6 cm hypoechoic solid nodule at the upper pole with well-defined margins; . This nodule is wider than tall and shows intranodular vascularity. Prior size: 1.0 x 0.6 x 0.7 cm LEFT: # of nodules measured on left: 0 ISTHMUS: # of nodules measured in the isthmus: 0 Bilateral neck scanned, no evidence of lymphadenopathy. IMPRESSION: 1. Stable subcentimeter nodule right lobe thyroid
[2019-11-17 12:48] LABS: T4, Free (Free Thyroxine) 1.46 ng/dL (0.78-2.19)
== END | disposition home or self-care (01) ==
LOC: RADUSWWP 11:34
PROVIDERS: ATTEND Internal Medicine Endocrinology, Diabetes & Metabolism
DX: E04.1 Nontoxic single thyroid nodule (principal); E03.8 Other specified hypothyroidism
CPT/HCPCS: 76536; 84439; 84443

== ENCOUNTER → 2019-12-02 | Outpatient (CLI) | payer OTHER ==
--- NOTE | 2019-12-02 09:03 | NM ---
Nuclear medicine hepatobiliary scan. HISTORY: Pain. DOSAGE: The patient received 8 ounces of ensure plus and 4.1 mCi of Technetium 99m Choletec. FINDINGS: There is normal hepatic extraction. The gallbladder is seen by 15 minutes. There is bilia ry to bowel clearance by 45 minutes. Ejection fraction is 33%. IMPRESSION: 1. No evidence of cholecystitis. 2. Abnormal ejection fraction of 33% correlate for biliary dyskinesia.
== END | disposition home or self-care (01) ==
LOC: RADNMMAIN 07:00
PROVIDERS: ATTEND Internal Medicine
DX: R94.8 Abnormal results of function studies of other organs and systems (principal); Z88.0 Allergy status to penicillin; Z88.6 Allergy status to analgesic agent
CPT/HCPCS: 78226; A9537

== ENCOUNTER → 2020-05-10 | Outpatient (CLI) | payer OTHER | END | disposition home or self-care (01) | LOC: LABWHC1 10:48 | PROVIDERS: ATTEND Internal Medicine | DX: Z20.828 Contact with and (suspected) exposure to other viral communicable diseases (principal) | CPT/HCPCS: 36415; 86769 ==

== ENCOUNTER → 2020-10-04 | Outpatient (CLI) | payer OTHER ==
--- NOTE | 2020-10-04 16:34 | XR ---
EXAMINATION TYPE: XR KUB DATE OF EXAM: 10/04/2020 COMPARISON: NONE HISTORY: Abdominal pain TECHNIQUE: 1 view FINDINGS: There is no sign of intestinal obstruction or pneumoperitoneum. Fecal pattern is normal. There is no evidence of a mass. There are clips from cholecystectomy. There are no pathologic calcifications over the kidneys. IMPRESSION: Nonacute abdomen. MTDD
== END | disposition home or self-care (01) ==
LOC: RADXRMAIN 10:49
PROVIDERS: ATTEND Internal Medicine
DX: R10.9 Unspecified abdominal pain (principal)
CPT/HCPCS: 74018

== ENCOUNTER → 2020-11-29 | Outpatient (CLI) | payer OTHER ==
--- NOTE | 2020-11-30 09:19 | US ---
EXAMINATION TYPE: US thyroid st tissue head/neck DATE OF EXAM: 11/29/2020 COMPARISON: US 11/17/2019 CLINICAL HISTORY: E04.1 Thyroid nodule. GLAND SIZE: Right Lobe: 4.2 x 1.7 x 1.3 cm Overall Parenchyma: heterogenous Left Lobe: 4.0 x 1.1 x 1.3 cm Overall Parenchyma: heterogeneous Isthmus Thickness: 0.4 cm NODULES RIGHT: # of nodules measured on right: 2 1. 1.0 X 0.6 x 0.7 cm, , hypoechoic which is wider than tall, with lobulated or irregular margins, without echogenic foci. Prior size: 0.8 x 0.6 x 0.6 cm 2. 0.5 x 0.4 x 1.0 cm slightly hypoechoic nodule within the right lobe. LEFT: # of nodules measured on left: 0 ISTHMUS: # of nodules measured in the isthmus: 0 Bilateral neck scanned, no evidence of lymphadenopathy. IMPRESSION: Hypoechoic nodules within the right lobe of the thyroid gland are TI-RADS 4 nodules measuring up to 1 cm. Continued sonographic follow-up is recommended. 2017 ACR TI-RADS LEVEL: 4 *Highest TI-RADS level nodule reported
== END | disposition home or self-care (01) ==
LOC: RADUSWWP 08:46
PROVIDERS: ATTEND Internal Medicine Endocrinology, Diabetes & Metabolism
DX: E04.1 Nontoxic single thyroid nodule (principal); E03.8 Other specified hypothyroidism
CPT/HCPCS: 36415; 76536; 84443

== ENCOUNTER → 2021-08-02 | Outpatient (CLI) | payer OTHER ==
[2021-08-02 18:14] LABS: Basophils # (A) 0.05 X 10*3/uL (0.00-0.10); Basophils % (A) 0.7 %; Eosinophils # (A) 0.23 X 10*3/uL (0.04-0.35); Eosinophils % (A) 3.3 %; HCT 42.4 % (37.2-46.3); HGB 14.1 g/dL (12.0-15.0); Immature Grans, Automated 0.1 %; Lymphocytes # (A) 2.51 X 10*3/uL (0.90-5.00); Lymphocytes % (A) 35.6 %; MCH 32.4 pg (27.0-32.0); MCHC 33.3 g/dL (32.0-37.0); MCV 97.5 fL (80.0-97.0); Mean Platelet Volume 10.5 fL (9.5-12.2); Monocytes # (A) 0.36 X 10*3/uL (0.20-1.00); Monocytes % (A) 5.1 %; NRBC Per 100 WBC 0 /100 WBCS (0.0-0.0); Neutrophils # (A) 3.89 X 10*3/uL (1.80-7.70); Neutrophils % (A) 55.2 %; Platelet Count 256 X 10*3/uL (140-440); RBC 4.35 X 10*6/uL (4.10-5.20); RDW 11.5 % (11.5-14.5); WBC 7.05 X 10*3/uL (4.50-10.00)
[2021-08-02 18:24] LABS: African American GFR (CKD) 118.9 (60.0-200.0); BUN/Creat Ratio 10.04 Ratio (12.00-20.00); Blood Urea Nitrogen 6.7 mg/dL (9.0-27.0); Calcium 9.8 mg/dL (8.7-10.3); Carbon Dioxide 25.6 mmol/L (20.0-27.5); Non-African American GFR(CKD) 102.5 (60.0-200.0); Potassium 4.1 mmol/L (3.5-5.5)
[2021-08-02 19:29] LABS: INR 0.96 (0.90-1.11); Prothrombin Time 10.9 sec (9.9-11.9)
== END | disposition home or self-care (01) ==
LOC: LABPAT 10:43
PROVIDERS: ATTEND Orthopaedic Surgery
DX: Z01.818 Encounter for other preprocedural examination (principal); M16.11 Unilateral primary osteoarthritis, right hip; Z22.322 Carrier or suspected carrier of Methicillin resistant Staphylococcus aureus
CPT/HCPCS: 80048; 85025; 85610; 87070

== ENCOUNTER 2021-08-12 06:05 | Day surgery (SDC) | payer OTHER ==
[2021-08-07 11:50] VITALS: BMI 20.9
--- NOTE | 2021-08-11 19:20 | HP ---
HISTORY AND PHYSICAL REASON FOR ADMISSION: Surgery is 08/12/2021 HISTORY OF PRESENT ILLNESS: Merna Maria is a 51-year-old patient seen with symptomatic left hip osteoarthritis. We discussed options for treatment. She elected to proceed with direct anterior left total hip arthroplasty. Consent was obtained. PAST MEDICAL HISTORY: Hypothyroidism. PAST SURGICAL HISTORY: Noncontributory. DAILY MEDICATIONS: Noncontributory. ALLERGIES: PENICILLIN, LYRICA. SOCIAL HISTORY: She denies current tobacco use. PHYSICAL EXAMINATION: Evaluation left of the hip. She has diffuse tenderness about the hip girdle. Limited range of motion with severe pain. Positive hip impingement sign. Straight-leg raise is negative. Her distal neurovascular exam is intact. RADIOGRAPHS: Radiographs of the left hip reveal severe osteoarthritic changes. IMPRESSION: 1. Left hip osteoarthritis. 2. Hypothyroidism. PLAN: Direct anterior left total hip arthroplasty. MMODL / IJN: [id number] /
[~2021-08-12 06:05] MED LIST: ACETAMINOPHEN TAB 500 MG TAB PO PRN; TRANEXAMIC ACID IN NACL,ISO-OS 1,000 MG in SALINE 1 100ML.BAG IVPB PRN
[2021-08-12] MEDS ORDERED: LIDOCAINE 1% (10MG/ML) FOR IV START INTRADERMA PRN (06:29)
[2021-08-12] MEDS ORDERED: MIDAZOLAM 2 MG/2 ML VIAL IV PRN (06:29)
[2021-08-12] MEDS ORDERED: ONDANSETRON 4 MG/2 ML VIAL IVP ONE (06:29)
[2021-08-12] MEDS ORDERED: HYDROmorphone 0.5 MG/0.5 ML SYRINGE IVP PRN ×2 (06:29→08:56)
[2021-08-12] MEDS ORDERED: DEXAMETHASONE SOD PHOSPHATE 4 MG/ML 1 ML VIAL IV ONE (06:29)
[2021-08-12] MEDS: LACTATED RINGERS 1,000 ML IV SCH ×2 (07:10→07:34)
[2021-08-12] MEDS ORDERED: PROPOFOL 10 MG/ML 20 ML VIAL IV ONE (07:35)
[2021-08-12] MEDS ORDERED: GLYCOPYRROLATE 0.2 MG/ML 2 ML VIAL ONE (07:35)
[2021-08-12] MEDS ORDERED: LIDOCAINE 1% INJ 10MG/ML (20 ML MDV) ONE (07:35)
[2021-08-12] MEDS ORDERED: ROCURONIUM 10 MG/ML (5 ML VIAL) IV ONE (07:35)
[2021-08-12] MEDS ORDERED: SUCCINYLCHOLINE CHLORIDE 100 MG/5 ML SYR IV ONE (07:35)
[2021-08-12] MEDS ORDERED: NEOSTIGMINE 1 MG/ML 10 ML VIAL ONE (07:35)
[2021-08-12] MEDS ORDERED: TRANEXAMIC ACID IN NACL,ISO-OS 1,000 MG/100 ML BAG ONE (07:35)
[2021-08-12] MEDS ORDERED: HYDROmorphone (PF) 1 MG/ML ONE (07:35)
[2021-08-12] MEDS ORDERED: fentaNYL (PF) 50 MCG/ML 2 ML AMP ONE (07:35)
[2021-08-12] MEDS ORDERED: BUPIVACAINE (PF) 0.5% 30 ML VIAL SQ ONE (07:40)
[2021-08-12] MEDS ORDERED: CLINDAMYCIN 600 MG in SODIUM CHLORIDE 0.9% 1,000 ML IRRIGATION ONE (08:14)
[2021-08-12] MEDS ORDERED: ACETAMINOPHEN TAB 325 MG TAB PO PRN (08:56)
[2021-08-12] MEDS ORDERED: NALOXONE 0.4 MG/ML 1 ML VIAL IV PRN (08:56)
[2021-08-12] MEDS ORDERED: HYDROcodone/APAP 7.5-325MG 1 EACH TAB PO PRN (08:56)
[2021-08-12] MEDS ORDERED: ONDANSETRON 4 MG/2 ML VIAL IVP PRN (08:56)
[2021-08-12] MEDS ORDERED: HYDROcodone/APAP 5-325MG 1 EACH TAB PO PRN (08:56)
--- NOTE | 2021-08-12 09:08 | P.OP ---
Date of Procedure: 08/12/21 Preoperative Diagnosis: Left hip osteoarthritis Postoperative Diagnosis: Left hip osteoarthritis Procedure(s) Performed: Direct anterior left total hip arthroplasty Implants: 1. Depuy Corail standard collar KA size 11 press-fit femoral stem 2. Depuy Erin 52 mm press-fit acetabular shell 3. Depuy Erin neutral polyethylene acetabular liner 36 mm ID 52 mm OD 4. Biolox delta ceramic femoral head +1.5 36 mm Anesthesia: NICANOR, local Surgeon: Leroy Cesar Home Energy Inspector #1: Romie Niño Estimated Blood Loss (ml): 75 Pathology: other (Femoral head) Condition: stable Disposition: PACU Indications for Procedure: 51-year-old patient seen with symptomatic left hip osteoarthritis. After having treatment options discussed, she elected to proceed with direct anterior left total hip arthroplasty Operative Findings: See description of procedure Description of Procedure: The patient was taken to the operative suite. Patient underwent a general anesthetic by the department of anesthesia. Patient was then transferred to the [place] table. Patient was given preoperative IV antibiotics and TXA. Both lower extremities were placed in standard leg spars. The hip was then prepped and draped in the normal sterile orthopedic fashion. A standard anterior incision was made beginning 3 cm lateral and 1 cm distal to the ASIS extending 10 cm. Dissection was then carried down through the subcutaneous soft tissues down to the fascia overlying the tensor fascia tim. An incision was now made through the fascia. Careful dissection was taken down exposing the tensor fascia tim muscle. A Cobra retractor was now placed along the medial femoral neck and a second one along the lateral femoral neck. The venous circumflex vessels were now identified, cauterized and clipped. We identified the anterior hip capsule. An incision was made through the hip capsule along the lateral border. I performed a partial anterior capsulectomy. Retractors were now placed around t he femoral neck itself. A femoral neck cut was now made with a sagittal saw. It was completed with an osteotome at the lateral neck area. The femoral head was now removed without difficulty. The extremity was now rotated to 60 of external rotation. It was locked in position. Residual labrum was now debrided out. Serial reaming was performed of the acetabulum while Romie VILLAFANA assisted holding an anterior retractor for exposure. Once we reached the appropriate size and a trial was position and fit nicely. The appropriate size was now chosen opened and made available. It was introduced into the acetabulum without difficulty. The C-arm/fluoroscopy was now brought into the operative field. We made sure we had a true AP pelvic view. We now under direct C- arm/fluoroscopy introduced into the acetabular component with appropriate version and inclination. I held the cup in appropriate position while Romie VILLAFANA used a mallet to seat the acetabular component. I noted the component now to be well seated and stable. Acetabular cup introduce her was removed. The C-arm was pulled back. An appropriate liner was introduced and clicked into position. It was felt to be stable. At this point retractors were removed. The extremity was now placed into 140 external rotation with no traction. The leg was now dropped to the ground and adducted. Appropriate retractors were now positioned along the proximal femur. We also placed our femoral look into position. Additional capsular releasing was performed to gain access to the proximal femur. We now used a box osteotome. A canal finder was now utilized. Serial broaching was now performed with the assistance of Romie VILLAFANA tapping the broaches down with a mallet while held the broach in appropriate rotation and position. This was done until we reached the appropriate size with good overall rotational stability. Appropriate calcar planing was performed. A trial head/neck was placed into position. The hip was now reduced. The C- arm/fluoroscopy was brought back into the operative field. I obtained AP pelvis demonstrating adequate alignment. The trial components appeared well positioned and adequately size. The C-arm/fluoroscopy was pulled back. Retractors were repositioned and the hip was dislocated. The leg was again taken down to the ground and adducted. Appropriate retractors were repositioned as well as the femoral hook. All trial components were removed. The femoral implant was opened along with the femoral head. The femoral implant was introduced on the appropriate handle into our pre-broached area. I held the component position while Romie VILLAFANA used a mallet to seat the femoral component. The femoral component was now noted to be well seated and stable.. The femoral head was introduced with good positioning and fixation noted. Retractors were now removed. The hip was now reduced. There appeared be good positioning of the hip confirmed on intraoperative fluoroscopy. Spot films were obtained to document this. A second gram of TXA was given. The deep and superficial soft tissues were infiltrated with local analgesic. Bipolar cautery had been utilized intermittently through the procedure for hemostasis. The wound was irrigated copiously with pulse lavage mechanical irrigation. The fascia was repaired with Vicryl suture. The subcutaneous soft tissues were repaired in layers with Vicryl suture. The skin was approximated with pernio/Dermabond. Sterile dressings were applied. Patient was then awakened, transferred to a bed and taken to recovery in stable condition. Romie VILLAFANA assisted with the complex procedure.
[2021-08-12 09:28] VITALS: TEMP 97.2
--- NOTE | 2021-08-12 10:28 | FL ---
EXAMINATION TYPE: FL guidance operating room DATE OF EXAM: 08/12/2021 HISTORY: Fluoroscopy time 9 seconds of fluoroscopy provided. IMPRESSION: 1. Fluoroscopy time.
[2021-08-12 13:10] VITALS: BP 91/64; PULSE 60; RESP 15
== END 2021-08-12 13:10 | disposition home health service (06) ==
LOC: OR 06:05
PROVIDERS: ATTEND Orthopaedic Surgery
DX: M16.12 Unilateral primary osteoarthritis, left hip (principal); E03.9 Hypothyroidism, unspecified; E78.5 Hyperlipidemia, unspecified; J44.9 Chronic obstructive pulmonary disease, unspecified; G89.4 Chronic pain syndrome; Z86.73 Personal history of transient ischemic attack (TIA), and cerebral infarction without residual deficits; Z87.891 Personal history of nicotine dependence; Z79.890 Hormone replacement therapy; Z88.6 Allergy status to analgesic agent; Z88.0 Allergy status to penicillin; Z88.8 Allergy status to other drugs, medicaments and biological substances; Z90.710 Acquired absence of both cervix and uterus
CPT/HCPCS: 97110; 97161; 86900; 86901; 86850; 88300; 73501; 27130; C1776; J1100; J2710; J0690; J2405; J2001; J3010; J1170 ×2; J0330; J2704; J1790

== ENCOUNTER 2021-09-14 11:52 | Emergency (ER) | payer OTHER ==
[2021-09-14 11:58] VITALS: TEMP 98.6
[2021-09-14] MEDS ORDERED: MORPHINE SULFATE 4 MG/ML SYRINGE IVP STA (12:22)
[2021-09-14] MEDS ORDERED: SODIUM CHLORIDE 0.9% 1,000 ML IV STA ×2 (12:48→14:01)
[2021-09-14] MEDS ORDERED: HYDROmorphone 0.5 MG/0.5 ML SYRINGE IVP STA (12:48)
[2021-09-14] MEDS ORDERED: PROPOFOL 10 MG/ML 20 ML VIAL IV ONE (13:37)
[2021-09-14] MEDS ORDERED: KETAMINE 10 MG/ML 20 ML VIAL IV ONE (13:38)
--- NOTE | 2021-09-14 13:59 | XR ---
EXAMINATION TYPE: XR Hip LT and AP Pelvis DATE OF EXAM: 09/14/2021 COMPARISON: Prior exam 08/28/2021 HISTORY: Hip pain, trauma TECHNIQUE: AP view of the pelvis is obtained on 2 images. Two views of the left hip are obtained. FINDINGS: There is no acute active. There is a left hip dislocation of the patient's prosthesis whic h shows bayonet apposition, slightly posteriorly and laterally displaced.. IMPRESSION: There is dislocation of patient's left hip prosthesis
[2021-09-14 14:45] VITALS: RESP 16
[2021-09-14] MEDS ORDERED: KETAMINE 10 MG/ML 20 ML VIAL IV STA (14:58)
[2021-09-14] MEDS ORDERED: PROPOFOL 10 MG/ML 20 ML VIAL IV STA (14:59)
--- NOTE | 2021-09-14 15:10 | XR ---
EXAMINATION TYPE: XR Hip Limited LT DATE OF EXAM: 09/14/2021 COMPARISON: Today HISTORY: Post reduction TECHNIQUE: Single view FINDINGS: There is persistent lateral superior dislocation of the prosthetic femoral head. IMPRESSION: Persistent dislocation
--- NOTE | 2021-09-14 15:14 | XR ---
EXAMINATION TYPE: XR Hip Limited LT DATE OF EXAM: 09/14/2021 COMPARISON: NONE HISTORY: Postreduction TECHNIQUE: Single view FINDINGS: There is anatomic reduction of the prosthetic femoral head. IMPRESSION: Anatomic reduction
--- NOTE | 2021-09-14 16:26 | ED ---
General Adult HPI - General Chief complaint: Extremity Problem,Nontraumatic Stated complaint: Left Hip Time Seen by Provider: 09/14/21 12:17 Source: patient, EMS, RN notes reviewed, old records reviewed Mode of arrival: EMS - History of Present Illness Initial comments: Patient is a 51-year-old female who received a total hip replacement of the left hip 08/12/2021 presents emergency Department with left hip pain. Believe she may dislocated it. States she was working out with weights for her arms, 3 pound weights and she leaned forward to settle down. She states she slightly leaning forward when she felt a pop and she fell to the ground onto her left side as she believes her hip instantly dislocated. Some left lower extremity. Endorses pain in the hip. Has no other acute complaint at this time. Presents over concern for left hip dislocation. Surgery was performed by Dr. Cesar. - Related Data Home Medications Medication Instructions Recorded Confirmed Levothyroxine Sodium [Synthroid] 88 mcg PO DAILY 12/08/17 08/12/21 Cannabidiol (Cbd) [Epidiolex] 0 mg PO DIRECTED PRN 08/07/21 08/12/21 Cholecalciferol [Vitamin D3 (25 25 mcg PO DAILY 08/07/21 08/12/21 Mcg = 1000 Iu)] Cyanocobalamin (Vitamin B-12) 1,000 mcg PO DAILY 08/07/21 08/12/21 [Vitamin B-12] Ubrogepant [Ubrelvy] 50 mg PO DIRECTED PRN 08/07/21 08/12/21 guaiFENesin [Mucinex] 600 mg PO BID PRN 08/07/21 08/12/21 Previous Rx's Medication Instructions Recorded Aspirin [Adult Low Dose Aspirin EC] 81 mg PO BID #60 tab 08/12/21 HYDROcodone/APAP 5-325MG [Knox 1 tab PO Q6HR PRN #32 tab 08/12/21 5-325] HYDROcodone/APAP 5-325MG [Knox 5] 1 each PO Q6HR PRN 3 Days #12 tab 09/14/21 Allergies Allergy/AdvReac Type Severity Reaction Status Date / Time gabapentin Allergy Swelling Verified 09/14/21 11:58 naproxen [From Naprosyn] Allergy Unknown Verified 09/14/21 11:58 Penicillins Allergy Rash/Hives Verified 09/14/21 11:58 pregabalin [From Lyrica] Allergy Swelling Verified 09/14/21 11:58 Review of Systems ROS Statement: Those systems with pertinent positive or pertinent negative responses have been documented in the HPI. Review of Systems: CONST: Denies fever EYES: Denies blurry vision ENT: Denies nasal congestion C/V: Denies Chest pain RESP: Denies shortness of breath GI: Denies abdominal pain : Denies dysuria SKIN: Denies rash. MSK: Endorses left hip pain NEURO: Denies headache ROS Other: All systems not noted in ROS Statement are negative. Past Medical History Past Medical History: GERD/Reflux, Hyperlipidemia, Thyroid Disorder Additional Past Medical History / Comment(s): FREQUENT VOMITING, LOOSE BOWELS, HX HYPOTENSION, STATES HAS CYST ON RIGHT OVARY chronic pain syndrome ddd History of Any Multi-Drug Resistant Organisms: None Reported Past Surgical History: Appendectomy, Hysterectomy Additional Past Surgical History / Comment(s): D&C, vein removal Past Anesthesia/Blood Transfusion Reactions: No Reported Reaction Past Psychological History: No Psychological Hx Reported Smoking Status: Never smoker Past Alcohol Use History: None Reported Past Drug Use History: Marijuana General Exam - General Exam Comments Initial Comments: General: Appears in moderate distress secondary to left hip pain. HEAD: Normal with no signs of head trauma. EYES: PERRLA, EOMI, conjunctiva normal, no discharge. Pupils are 3 mm and equal bilaterally. ENT: Hearing grossly intact, normal oropharynx. RESPIRATORY: Clear breath sounds bilaterally. No wheezes, rales, or rhonchi. C/V: Regular rate and rhythm. S1 and S2 auscultated, no edema, peripheral pulses 2+ and intact throughout. Intact pulses in the left lower extremity as well as good capillary refill distally. ABD: Abd is soft, nontender, nondistended EXT: Patient has tenderness to palpation over the lateral left hip. Slight obvious deformity as the patient has externally rotated and shortened left hip. Suspect posterior hip dislocation. SKIN: No rashes or lesions observed on exposed skin. NEURO: Alert and oriented 4. Neurovascular intact throughout. Course Vital Signs 09/14/21 09/14/21 09/14/21 11:54 14:23 14:31 Temperature 98.6 F Pulse Rate 79 72 82 Respiratory 18 18 12 Rate Blood Pressure 101/85 111/66 118/82 O2 Sat by Pulse 99 100 100 Oximetry 09/14/21 09/14/21 09/14/21 14:36 14:41 14:52 Temperature Pulse Rate 69 64 86 Respiratory 16 16 16 Rate Blood Pressure 119/77 126/83 108/63 O2 Sat by Pulse 100 100 100 Oximetry 09/14/21 09/14/21 09/14/21 14:58 15:15 15:31 Temperature Pulse Rate 81 81 73 Respiratory 16 16 16 Rate Blood Pressure 111/54 114/77 102/59 O2 Sat by Pulse 100 100 100 Oximetry 09/14/21 09/14/21 15:45 16:00 Temperature Pulse Rate 80 78 Respiratory 16 16 Rate Blood Pressure 106/63 100/57 O2 Sat by Pulse 100 100 Oximetry Procedures - [place] Protocol (Time Out) Procedure Performed:: left hip reduction Performing Provider: Omar Dolan Nurse: Catherine Briggs Respiratory Therapist: Josiah Chapman Patient Identification (2 identifiers required): Chart, Verbal, Arm Band, Name, Birthdate Patient/Legal Fitness Consultant has Confirmed: Identity, Site, Procedure, Consent Site Marked: No Final Confirmation: Procedure, Site, Laterality - Orthopedic Joint Reduction Joint #1 Consent Obtained: written consent Side: left Joint Reduction Location: hip Analgesia: procedural sedation Technique Used: traction/counter-traction, direct manipulation Post-Reduction Neuro Exam: intact Post-Reduction Vascular Exam: intact Post Reduction X-Ray Obtained: Yes Post Reduction X-Ray Results: not reduced Patient Tolerated Procedure: well Additional Comments: left hip attempt 1. Joint #2 Consent Obtained: written consent Side: left Joint Reduction Location: hip Analgesia: procedural sedation Technique Used: traction/counter-traction, direct manipulation Post-Reduction Neuro Exam: intact Post-Reduction Vascular Exam: intact Post Reduction X-Ray Obtained: Yes Post Reduction X-Ray Results: reduced Splint Applied: Yes (knee immobilizer) Patient Tolerated Procedure: well Additional Comments: Left hip attempt 2. - Procedural Sedation Procedural Sedation Start Time: 14:25 Procedural Sedation Stop Time: 14:41 Indications: fracture/dislocation reduction ASA Class: I Mallampati Airway Score: 2 Preparation: manager monitoring applied, pulse oximeter, capnometry used, supplemental O2 applied, suction/airway equipment at bedside, IV secured Ketamine: IV Ketamine Dose: 60 IV Propofol Dose (mgs): 60 Complications: none Patient Tolerated Procedure: well Additional Comments: Second procedural sedation was performed for second reduction attempt. Time started: 1450. End time was 1456. mallampati 2. ASA 1. 30mg Ketamine IVP and 30mg Propofol IVP used. Tolerated the procedure well. cardiac monitor technician, pulse ox, capnography, oxygen applied. IV was secured. No complications. Medical Decision Making - Medical Decision Making Based on the patient's presentation and physical exam, and concern for left hip dislocation, the setting of a recently performed total left hip replacement. We will obtain plain film x-rays and patient will be given IV analgesia. She was in agreement this plan. Patient's hip x-ray revealed a dislocated left hip. No fracture. I updated the patient. I did discuss the case with orthopedic surgeon, Dr. Sibley who was on-call for Dr. Cesar. As long as there is a successful reduction, patient can remain weight-bear 50% LLE, using crutches and or walker at home for ambulation. Can follow up outpatient with Arsenio in the next 2 days. Left knee immobilizer will also be in place following reduction. I discussed this with the patient and she expressed understanding was in agreement with the plan. Initial reduction was momentarily successful but hip appeared to slightly dislocated again anteriorly. Second reduction was successful. Please see additional procedure notes for further details. Patient was given ketofol for sedation. On reevaluation, she has returned to baseline. She'll be given Knox for pain control as needed. She expressed understanding of her weightbearing 50%. She will follow-up with her surgeon next week. I will provide the patient with a prescription for Knox 5, 12 tabs. I instructed the patient to follow up with their PCP in the next 3 days. I provided contact information for follow up with Arsenio. I explained that the patient should return to the emergency department if they experience any worsening symptoms. Strict return precautions were discussed with the patient. The patient expressed understanding of these instructions. I answered all questions that the patient had. The patient was discharged home in good condition with their prescriptions and follow up information. Disposition Clinical Impression: Hip dislocation, left, S/P closed reduction of dislocated total hip prosthesis Disposition: HOME SELF-CARE Condition: Good Instructions (If sedation given, give patient instructions): Hip Dislocation (ED) Prescriptions: HYDROcodone/APAP 5-325MG [Knox 5] 1 each PO Q6HR PRN 3 Days #12 tab PRN Reason: Pain Is patient prescribed a controlled substance at d/c from ED?: Yes When asked, does pt state using other controlled substances?: No If prescribed controlled substance>3 days was MAPS reviewed?: Prescribed <3 Days If opioid is for acute pain is fill amount 7 days or less?: Yes If Rx opioid, was Start Talking consent form obtained?: Yes Referrals: Jayson Shipman MD [Primary Care Provider] - 1-2 days Leroy Cesar DO [Doctor of Osteopathic Medicine] - 1-2 days Time of Disposition: 16:45
[2021-09-14 16:57] VITALS: BP 100/57; PULSE 78
== END 2021-09-14 16:58 | disposition home or self-care (01) ==
LOC: EC 11:52
DX: T84.012A Broken internal right knee prosthesis, initial encounter (principal); E07.9 Disorder of thyroid, unspecified; K21.9 Gastro-esophageal reflux disease without esophagitis; Z79.890 Hormone replacement therapy; W01.0XXA Fall on same level from slipping, tripping and stumbling without subsequent striking against object, initial encounter; Z88.6 Allergy status to analgesic agent; Z88.0 Allergy status to penicillin; Z88.9 Allergy status to unspecified drugs, medicaments and biological substances; Z88.8 Allergy status to other drugs, medicaments and biological substances
CPT/HCPCS: 96376 ×2; 96361 ×2; 96374 ×2; 96375 ×2; 99284 ×2; 27265 ×2; 73501; 73502; L1830; J2270; J2704; J1170

== ENCOUNTER → 2021-11-19 | Outpatient (CLI) | payer OTHER ==
[2021-11-19 18:22] LABS: T4, Free (Free Thyroxine) 1.33 ng/dL (0.800-1.800)
--- NOTE | 2021-11-20 03:33 | US ---
EXAMINATION TYPE: US thyroid st tissue head/neck DATE OF EXAM: 11/19/2021 COMPARISON: US 11/17/2019 CLINICAL HISTORY: 51-year-old female [id number] NONTOXIC MULTINODULAR GOITER. MULTINODULAR GOITER GLAND SIZE: Right Lobe: 3.5 x 1.2 x 1.3CM Overall Parenchyma: heterogenous Left Lobe: 3.2 x 1.2 x 1.0cm Overall Parenchyma: heterogeneous Isthmus Thickness: 0.2m NODULES RIGHT: # of nodules measured on right: 2 1. 0.9 X 0.7 x 0.6 cm, upper mid, solid or almost completely solid, hypoechoic TR 4 nodule, which is wider than tall, with lobulated or irregular margins, without echogenic foci. Prior size: 1.0 x 0.6 x 0.7 cm 2. 0.6 X 0.3 x 0.4 cm, anterior upper mid, solid or almost completely solid, hypoechoic TR 4 nodule , which is wider than tall, with smooth margins, without echogenic foci. Prior size: 8 x 5 x 4 mm LEFT: # of nodules measured on left: 2 1. 0.4 X 0.3 x 0.4 cm, posterior lower mid, possible colloid cyst with echogenic foci. Not well see n previously. 2. 0.5 X 0.2 x 0.5 cm, lower mid posteriorly, possible second colloid cyst, with echogenic foci. No t well seen previously. ISTHMUS: # of nodules measured in the isthmus: 0 Bilateral neck scanned, no evidence of lymphadenopathy. IMPRESSION: Possible multinodular goiter. Redemonstrated TR4 nodules measuring up to 9 mm on the right. A couple nodules on the left may be new but have the appearance of benign colloid cysts measuring up to 5 mm. Continued follow-up as clinically indicated.
== END | disposition home or self-care (01) ==
LOC: RADUSWWP 09:53
PROVIDERS: ATTEND Internal Medicine Endocrinology, Diabetes & Metabolism
DX: E04.2 Nontoxic multinodular goiter (principal)
CPT/HCPCS: 76536; 84439; 84443

== ENCOUNTER → 2022-02-10 | Outpatient (CLI) | payer OTHER ==
--- NOTE | 2022-02-10 19:22 | MR ---
EXAMINATION TYPE: MR lumbar spine wo con DATE OF EXAM: 02/10/2022 COMPARISON: Radiograph 01/22/2022 HISTORY: 51-year-old female LOW BACK PAIN, LUMBAR SPONDYLOSIS, PAIN INTO RT LOWER EXTREMITY TECHNIQUE: Multiplanar, multisequence images of the lumbar spine were acquired without IV contrast. FINDINGS: Susceptibility artifact relating to left hip total arthroplasty. Vertebral body heights are preserved. Alignment is maintained. Conus medullaris is normal. Small sacral Tarlov cysts on the left measuring 9 mm. Moderate degenerative disc disease L4-L5 characterized by disc space narrowing, desiccation, and bulg ing. There is associated mixed Modic type I and type II endplate change towards the left ear. Additional levels of mild degenerative disc disease with desiccated and minimally bulging disc L3-L4: Posterior annular fissure and also at L5-S1. Mild facet arthropathy mid to lower lumbar spine. Some ligamentum flavum thickening is also noted tow ards the left at L4-L5. No suspicious bone marrow replacement. From T12 through L3, no spinal canal or neuroforaminal stenosis. At L3-L4, mild disc bulge and posterior annular fissure. Mild facet arthropathy. No significant canal or foraminal stenosis. At L4-L5, there is diffuse disc bulge eccentric toward the left and additional left-sided ligamentum flavum thickening. Bilateral facet arthropathy. Disc material closely approaches and may abut the tra versing left L5 nerve root. Changes result in moderate left neuroforaminal stenosis. There is mild im pression on the ventral thecal sac but no significant spinal canal stenosis. At L5-S1, mild disc bulge and mild facet degenerative change. No significant canal or foraminal steno sis. No prevertebral or paravertebral soft tissue abnormality seen. IMPRESSION: 1. Moderate degenerative disc disease at L4-L5 with some associated mixed Modic type I and type II en dplate change particularly towards the left. There is a corresponding diffuse disc bulge eccentric to wards the left at this level. Disc material closely approaches and may abut the traversing left L5 ne rve root and also contributes to moderate left neuroforaminal stenosis here. 2. Mild degenerative disc disease L3-L4 with a posterior annular fissure. Also mild degenerative disc disease L5-S1. 3. No large focal disc herniation or significant spinal canal stenosis. 4. Mild facet arthropathy mid to lower lumbar spine. No vertebral compression collapse or malalignmen t.
== END | disposition home or self-care (01) ==
LOC: RADMRIMAIN 10:29
PROVIDERS: ATTEND Orthopaedic Surgery
DX: M47.816 Spondylosis without myelopathy or radiculopathy, lumbar region (principal)
CPT/HCPCS: 72148

== ENCOUNTER → 2022-03-14 | Outpatient (CLI) | payer OTHER | END | disposition home or self-care (01) | LOC: LABWHC1 12:51 | PROVIDERS: ATTEND Ophthalmology | DX: I77.6 Arteritis, unspecified (principal) | CPT/HCPCS: 36415; 85652; 86140 ==

== ENCOUNTER → 2022-03-18 | Outpatient (CLI) | payer OTHER ==
--- NOTE | 2022-03-18 12:31 | MR ---
EXAMINATION TYPE: MR brain wo/w con DATE OF EXAM: 03/18/2022 COMPARISON: MR brain/C-spine 04/19/2018. HISTORY: Optic neuropathy, MS TECHNIQUE: Multiplanar, multisequence images of the brain and brainstem is performed without and with IV contras t, utilizing 6.5 mL intravenous Gadavist . MS protocol utilized. FINDINGS: Diffusion weighted images demonstrate no evidence of a recent infarct or other diffusion ab normality. There is no extra-axial fluid collection or significant white matter signal abnormality. The ventricular system and cisternal spaces are normal in size and appearance. The brain volume is age appropriate. Midline structures demonstrate normal morphology. The craniocervical junction appears within normal limits. Post contrast images demonstrate no abnormal enhancement. The dural venous sinuses appear pa tent. The bones are intact. Mild mucosal thickening of the bilateral maxillary sinuses. IMPRESSION: No evidence for acute ischemia or abnormal contrast enhancement. No white matter signal abnormality t o suggest demyelinating process.
== END | disposition home or self-care (01) ==
LOC: RADMRIMAIN 11:13
PROVIDERS: ATTEND Ophthalmology
DX: H47.012 Ischemic optic neuropathy, left eye (principal); G35 Multiple sclerosis
CPT/HCPCS: 70553; A9585

== ENCOUNTER 2022-03-31 11:01 | Emergency (ER) | payer OTHER ==
[2022-03-31 11:05] VITALS: TEMP 98.5
[2022-03-31 12:05] LABS: Basophils # (A) 0.1 k/uL (0-0.2); Basophils % (A) 1 %; Eosinophils # (A) 0.3 k/uL (0-0.7); Eosinophils % (A) 4 %; HCT 42.4 % (34.0-46.0); HGB 14.9 gm/dL (11.4-16.0); Lymphocytes # (A) 3.1 k/uL (1.0-4.8); Lymphocytes % (A) 39 %; MCH 33.6 pg (25.0-35.0); MCHC 35.3 g/dL (31.0-37.0); MCV 95.2 fL (80.0-100.0); Mean Platelet Volume 8.7; Monocytes # (A) 0.5 k/uL (0-1.0); Monocytes % (A) 7 %; Neutrophils # (A) 3.6 k/uL (1.3-7.7); Neutrophils % (A) 46 %; Platelet Count 221 k/uL (150-450); RBC 4.45 m/uL (3.80-5.40); RDW 11.7 % (11.5-15.5); WBC 7.8 k/uL (3.8-10.6)
[2022-03-31 12:31] LABS: INR 0.9 (<1.2); Partial Thromboplastin Time 23.5 sec (22.0-30.0); Prothrombin Time 10.3 sec (9.0-12.0)
[2022-03-31 12:33] LABS: ALT 32 U/L (4-34); AST 35 U/L (14-36); African American GFR (CKD) >90 (>60 ml/min/1.73 sqM); Albumin 4.6 g/dL (3.5-5.0); Alkaline Phosphatase 99 U/L (38-126); Anion Gap 5 mmol/L; Blood Urea Nitrogen 9 mg/dL (7-17); Calcium 9.3 mg/dL (8.4-10.2); Carbon Dioxide 28 mmol/L (22-30); Chloride 104 mmol/L (98-107); Glucose 87 mg/dL (74-99); Non-African American GFR(CKD) >90 (>60 ml/min/1.73 sqM); Potassium 4.2 mmol/L (3.5-5.1); Sodium 137 mmol/L (137-145); Total Bilirubin 0.6 mg/dL (0.2-1.3); Total Protein 6.7 g/dL (6.3-8.2)
--- NOTE | 2022-03-31 14:51 | ED ---
General Adult HPI - General Chief complaint: Neuro Symptoms/Deficit Stated complaint: numbness in chest Time Seen by Provider: 03/31/22 11:09 Source: patient, RN notes reviewed, old records reviewed Mode of arrival: ambulatory Limitations: no limitations - History of Present Illness Initial comments: Patient is a 51-year-old female with past medical history remarkable for hypertension, acid reflux, thyroid disorder who is currently being worked up for MS outpatient presents emergency department with approximately 7-10 days of intermittent numbness over bilateral upper extremities and face, as well as left eye blurred vision. Patient has been following up with ophthalmology and is been being worked up outpatient for it. States symptoms have more or less been constant since last Thursday, and began having symptoms just prior to this. No acute changes. Denies weakness. Is seeing Dr. Lopez outpatient. Denies chest pain, shortness breath, abdominal pain, nausea, vomiting. Presents for further evaluation at this time. Denies any history of strokes. No traumas. Not on blood thinners. - Related Data Home Medications Medication Instructions Recorded Confirmed Levothyroxine Sodium [Synthroid] 88 mcg PO DAILY 12/08/17 03/31/22 Albuterol Sulfate [Proair Hfa] 2 puff INHALATION RT-QID PRN 03/31/22 03/31/22 Moxifloxacin HCl [Moxifloxacin 1 drop LEFT EYE QID 03/31/22 03/31/22 0.5%] Rimegepant Sulfate [Nurtec Odt] 75 mg PO Q48H PRN 03/31/22 03/31/22 Allergies Allergy/AdvReac Type Severity Reaction Status Date / Time gabapentin Allergy Anaphylaxis Verified 03/31/22 13:27 naproxen [From Naprosyn] Allergy Unknown Verified 03/31/22 13:27 Penicillins Allergy Rash/Hives Verified 03/31/22 13:27 pregabalin [From Lyrica] Allergy Anaphylaxis Verified 03/31/22 13:27 Review of Systems ROS Statement: Those systems with pertinent positive or pertinent negative responses have been documented in the HPI. Review of Systems: CONST: Denies fever EYES: Endorses left eye blurry vision ENT: Denies nasal congestion C/V: Denies Chest pain RESP: Denies shortness of breath GI: Denies abdominal pain : Denies dysuria SKIN: Denies rash. MSK: Denies joint pain. NEURO: Denies headache ROS Other: All systems not noted in ROS Statement are negative. Past Medical History Past Medical History: GERD/Reflux, Hyperlipidemia, Thyroid Disorder Additional Past Medical History / Comment(s): FREQUENT VOMITING, LOOSE BOWELS, HX HYPOTENSION, STATES HAS CYST ON RIGHT OVARY chronic pain syndrome ddd History of Any Multi-Drug Resistant Organisms: None Reported Past Surgical History: Appendectomy, Hysterectomy Additional Past Surgical History / Comment(s): D&C, vein removal Past Anesthesia/Blood Transfusion Reactions: No Reported Reaction Past Psychological History: No Psychological Hx Reported Smoking Status: Never smoker Past Alcohol Use History: None Reported Past Drug Use History: Marijuana General Exam - General Exam Comments Initial Comments: General: Appears in no acute distress. HEAD: Normal with no signs of head trauma. EYES: PERRLA, EOMI, conjunctiva normal, no discharge. Visual acuity is decreased in the left eye versus right. Has been ongoing for the last 7 days. Has followed up with ophthalmology outpatient for this.Pupils are 3 mm equal bilaterally. ENT: Hearing grossly intact, normal oropharynx. RESPIRATORY: Clear breath sounds bilaterally. No wheezes, rales, or rhonchi. C/V: Regular rate and rhythm. S1 and S2 auscultated, no edema, peripheral pulses 2+ and intact throughout ABD: Abd is soft, nontender, nondistended EXT: Normal range of motion, no obvious deformity SKIN: No rashes or lesions observed on exposed skin. NEURO: Alert and oriented 4. No focal strength deficits. NIH at most of 1-2 for the left eye findings as well as the sensory deficit that seems subjective. Last known well was 7-10 days ago. Limitations: no limitations Course Vital Signs 03/31/22 03/31/22 11:02 15:17 Temperature 98.5 F Pulse Rate 57 L 53 L Respiratory 16 18 Rate Blood Pressure 103/66 97/69 O2 Sat by Pulse 99 99 Oximetry Medical Decision Making - Medical Decision Making Based on the patient's presentation and physical exam, I'm concerned for what s eems to be somewhat strokelike symptoms versus neuro symptoms that have been ongoing for 7-10 days. Cannot rule out stroke at this time. Did recommend we obtain CT imaging of the brain. She was in agreement this plan. Did have an MRI of the brain done recently, however states symptoms seemed to be somewhat worse today but have been present since last week. Is being worked up outpatient for MS she was in agreement this plan. Stroke pager was not activated. She is not a TPA candidate as risks far outweigh the benefits since symptoms have been ongoing for over 7 days. She was in agreement this plan. Vital signs within acceptable limits. Brain MRI was obtained on March 18 upon my review and showed no acute intracranial process. EKG showed no signs of acute ischemia. Laboratory studies are unremarkable including an undetectable troponin. Chest x-ray as interpreted by myself shows no acute cardio pulmonary process. CT brain revealed no acute intracranial process. CT angiogram of the brain revealed no acute intracranial process. There was a delay in obtaining received from radiology on the imaging studies due to computer issues. On reevaluation come patient remains unchanged. We did discuss her symptoms and findings. We discussed her recent brain MRI which is obtained after symptoms started. I believe it is safer to be discharged home at this time as I believe we have very little to offer her at this point. She does follow up with her sales mgr on Thursday for further evaluation. She was in agreement with discharge home. Strict return precautions were discussed. I instructed the patient to follow up with their PCP in the next 1-3 days. I explained that the patient should return to the emergency department if they experience any worsening symptoms. Strict return precautions were discussed with the patient. The patient expressed understanding of these instructions. I answered all questions that the patient had. The patient was discharged home in good condition with their prescriptions and follow up information. - Lab Data Result diagrams: 03/31/22 11:54 03/31/22 11:54 Lab Results 03/31/22 03/31/22 03/31/22 Range/Units 11:54 11:54 11:54 WBC 7.8 (3.8-10.6) k/uL RBC 4.45 (3.80-5.40) m/uL Hgb 14.9 (11.4-16.0) gm/dL Hct 42.4 (34.0-46.0) % MCV 95.2 (80.0-100.0) fL MCH 33.6 (25.0-35.0) pg MCHC 35.3 (31.0-37.0) g/dL RDW 11.7 (11.5-15.5) % Plt Count 221 (150-450) k/uL MPV 8.7 Neutrophils % 46 % Lymphocytes % 39 % Monocytes % 7 % Eosinophils % 4 % Basophils % 1 % Neutrophils # 3.6 (1.3-7.7) k/uL Lymphocytes # 3.1 (1.0-4.8) k/uL Monocytes # 0.5 (0-1.0) k/uL Eosinophils # 0.3 (0-0.7) k/uL Basophils # 0.1 (0-0.2) k/uL PT 10.3 (9.0-12.0) sec INR 0.9 (<1.2) APTT 23.5 (22.0-30.0) sec Sodium 137 (137-145) mmol/L Potassium 4.2 (3.5-5.1) mmol/L Chloride 104 (98-107) mmol/L Carbon Dioxide 28 (22-30) mmol/L Anion Gap 5 mmol/L BUN 9 (7-17) mg/dL Creatinine 0.72 (0.52-1.04) mg/dL Est GFR (CKD-EPI)AfAm >90 (>60 ml/min/1.73 sqM) Est GFR (CKD-EPI)NonAf >90 (>60 ml/min/1.73 sqM) Glucose 87 (74-99) mg/dL Calcium 9.3 (8.4-10.2) mg/dL Total Bilirubin 0.6 (0.2-1.3) mg/dL AST 35 (14-36) U/L ALT 32 (4-34) U/L Alkaline Phosphatase 99 (38-126) U/L Troponin I (0.000-0.034) ng/mL Total Protein 6.7 (6.3-8.2) g/dL Albumin 4.6 (3.5-5.0) g/dL 03/31/22 Range/Units 11:54 WBC (3.8-10.6) k/uL RBC (3.80-5.40) m/uL Hgb (11.4-16.0) gm/dL Hct (34.0-46.0) % MCV (80.0-100.0) fL MCH (25.0-35.0) pg MCHC (31.0-37.0) g/dL RDW (11.5-15.5) % Plt Count (150-450) k/uL MPV Neutrophils % % Lymphocytes % % Monocytes % % Eosinophils % % Basophils % % Neutrophils # (1.3-7.7) k/uL Lymphocytes # (1.0-4.8) k/uL Monocytes # (0-1.0) k/uL Eosinophils # (0-0.7) k/uL Basophils # (0-0.2) k/uL PT (9.0-12.0) sec INR (<1.2) APTT (22.0-30.0) sec Sodium (137-145) mmol/L Potassium (3.5-5.1) mmol/L Chloride (98-107) mmol/L Carbon Dioxide (22-30) mmol/L Anion Gap mmol/L BUN (7-17) mg/dL Creatinine (0.52-1.04) mg/dL Est GFR (CKD-EPI)AfAm (>60 ml/min/1.73 sqM) Est GFR (CKD-EPI)NonAf (>60 ml/min/1.73 sqM) Glucose (74-99) mg/dL Calcium (8.4-10.2) mg/dL Total Bilirubin (0.2-1.3) mg/dL AST (14-36) U/L ALT (4-34) U/L Alkaline Phosphatase (38-126) U/L Troponin I <0.012 (0.000-0.034) ng/mL Total Protein (6.3-8.2) g/dL Albumin (3.5-5.0) g/dL - EKG Data -: EKG Interpreted by Me EKG Comments: 12-lead Electrocardiogram Interpretation Note EKG was reviewed and interpreted by myself. 12-lead ECG performed at 1205 is interpreted by me as revealing normal sinus rhythm at a rate of 55 beats per minute. Indeterminate axis. NH interval is 174 ms, QRS duration is 106 ms, QTc is 395 ms.. There were no ST or T wave abnormalities to suggest myocardial ischemia or injury. R wave progression across the precordium was satisfactory. By my interpretation this EKG is non-diagnostic for acute ischemia. Disposition Clinical Impression: Arm paresthesia, left, Arm paresthesia, right, Blurry vision, left eye Disposition: HOME SELF-CARE Condition: Good Is patient prescribed a controlled substance at d/c from ED?: No Referrals: Jayson Shipman MD [Primary Care Provider] - 1-2 days Time of Disposition: 16:15
[2022-03-31 15:18] VITALS: RESP 18
--- NOTE | 2022-03-31 16:17 | CT ---
EXAMINATION TYPE: CT angio head neck DATE OF EXAM: 03/31/2022 HISTORY: Numbness to face and upper extremities for 36 hours COMPARISON: None. CT DLP: 1478.8 mGycm. Automated Exposure Control for Dose Reduction was Utilized. TECHNIQUE: CTA scan of the head and neck is performed without and with IV Contrast, patient injected with 65 ml mL of Isovue 370, axial images are obtained, coronal and sagittal reformatted images are reviewed. 3D reconstructed images are created on an independent workstation and reviewed. FINDINGS: Carotid/Vascular Structures: Normal three-vessel origin from aortic arch. Suboptimal evaluation of th e right brachiocephalic artery at its origin due to marked streak artifact from adjacent contrast inj ected left brachiocephalic vein. No significant plaque or stenosis in the remainder of the 3 great ve ssel takeoff. No significant plaque or stenosis in the common or internal carotid arteries bilaterall y including at the level of the bilateral carotid bulbs. Patent external carotid arteries bilaterally without significant plaque or stenosis. Hypoplastic anterior communicating artery. No significant fo cynthia stenosis or aneurysm in the anterior circulation. Codominant vertebral arteries patent to the basilar junction. Hypoplastic bilateral posterior communi cating arteries. No significant focal stenosis or aneurysm in the posterior circulation. Other: Mild to moderate underlying emphysematous change and visualized upper lungs. Mild disc space narrowing and spurring C5-C6 and C6-C7 levels. IMPRESSION: No significant abnormality is seen. NASCET criteria was used in interpretation of this exam?
--- NOTE | 2022-03-31 16:17 | XR ---
EXAMINATION TYPE: XR chest 2V DATE OF EXAM: 03/31/2022 COMPARISON: Chest CT July 15, 2018. Most recent chest x-ray December 23, 2021 HISTORY: Altered mental status and weakness. TECHNIQUE: Frontal and lateral views of the chest are obtained. FINDINGS: There is background chronic emphysematous change without suspicious focal air space opacit y, pleural effusion, or pneumothorax seen. The cardiac silhouette size is stable and within normal l imits. The osseous structures are intact. IMPRESSION: Chronic emphysematous change without acute pulmonary process.
--- NOTE | 2022-03-31 16:17 | CT ---
EXAMINATION TYPE: CT brain wo con CT DLP: 1099.4 mGycm, Automated exposure control for dose reduction was used. DATE OF EXAM: 03/31/2022 1:55 PM COMPARISON: MR brain 03/18/2022 CLINICAL INDICATION:Female, 51 years old with history of Neuro deficit, acute, stroke suspected, Neur o deficit, acute, stroke suspected. Numbness of face and upper extremities for 36 hours TECHNIQUE: Brain: Multiple axial CT images of the brain were obtained without IV contrast. Coronal and sagittal reformats reviewed. FINDINGS: Brain: Extra-axial spaces: No abnormal extra-axial fluid collections. Ventricular system: Within normal limits Cerebral parenchyma: No acute intraparenchymal hemorrhage or mass effect. The moya-white junction is well differentiated. Cerebellum: Unremarkable. Mass effect: No evidence of midline shift. Intracranial vasculature: unremarkable Soft tissues: Normal. Calvarium/osseous structures: No depressed skull fracture. Paranasal sinuses and mastoid air cells: Minimal mucosal thickening of the bilateral maxillary sinuse s. The mastoid air cells are clear. Visualized orbits: Orbital contents are intact. IMPRESSION: No acute intracranial process.
[2022-03-31 16:43] VITALS: BP 102/62; PULSE 56
== END 2022-03-31 16:43 | disposition home or self-care (01) ==
LOC: EC 11:01
DX: R20.2 Paresthesia of skin (principal); H53.8 Other visual disturbances; K21.9 Gastro-esophageal reflux disease without esophagitis; E78.5 Hyperlipidemia, unspecified; E07.9 Disorder of thyroid, unspecified; Z88.8 Allergy status to other drugs, medicaments and biological substances; Z88.0 Allergy status to penicillin; Z88.6 Allergy status to analgesic agent; Z79.51 Long term (current) use of inhaled steroids; Z79.899 Other long term (current) drug therapy; Z79.890 Hormone replacement therapy
CPT/HCPCS: 36415; 93005; 80053; 84484; 85025; 85610; 85730; 71046; 70496; 70450; 70498; 99284; Q9967

== ENCOUNTER → 2022-06-04 | Outpatient (CLI) | payer OTHER ==
--- NOTE | 2022-06-04 07:37 | MR ---
MRI CERVICAL SPINE: CLINICAL HISTORY: Migraine w/o aura. headache with neck pain for years causing pain and weakness into both arms and fingers per patient TECHNIQUE: Multiplanar, multisequence imaging of the cervical spine is performed without IV contrast. COMPARISON: Outside cervical spine x-ray April 07, 2022 FINDINGS: Sagittal images of the cervical spine show the craniocervical junction to appear within nor mal limits. Coronal images show slight dextroconvex scoliosis centered in the mid cervical spine. The cervical and upper thoracic spinal cord is normal in caliber and signal. Alignment is satisfactory o n sagittal images. Mild disc space narrowing C6-C7 level otherwise the vertebral body and intraverteb ral disk heights are normal. Subtle Modic type I endplate changes posteriorly at this level noted sag ittal image 9. Axial images show C2-C3 through the C4-C5 levels to within normal limits. Axial images at C5-C6 levels show broad-based posterior disc protrusion effacing anterior thecal sac and causing moderate right and mild to moderate left-sided neural foraminal narrowing. Axial images at C6-C7 levels from broad-based left paracentral/foraminal disc protrusion effacing the anterior thecal sac and causing mild right and moderate to advanced left-sided neural foraminal narr owing. Axial images at C7-T1 level appear within normal limits. There is some mucosal thickening in posterior inferior aspect of bilateral maxillary sinuses with roshan roximately 1.5 cm polyp or cyst in the posterior inferior right maxillary sinus noted sagittal image 15. IMPRESSION: Multilevel Degenerative change in the cervical spine as detailed above greatest at C5-C6 and C6-C7 levels.
== END | disposition home or self-care (01) ==
LOC: RADMRIMAIN 06:32
PROVIDERS: ATTEND Psychiatry & Neurology Neurology
DX: M47.812 Spondylosis without myelopathy or radiculopathy, cervical region (principal); M99.71 Connective tissue and disc stenosis of intervertebral foramina of cervical region; M50.823 Other cervical disc disorders at C6-C7 level; G43.009 Migraine without aura, not intractable, without status migrainosus
CPT/HCPCS: 72141

== ENCOUNTER 2022-06-08 17:00 | Observation (INO) | payer OTHER ==
[2022-06-08] MEDS ORDERED: SODIUM CHLORIDE 0.9% 1,000 ML IV STA (17:22)
[2022-06-08] MEDS ORDERED: KETOROLAC 15 MG/ML 1 ML VIAL IVP STA (17:22)
[2022-06-08] MEDS ORDERED: METOCLOPRAMIDE 5 MG/ML 2 ML VIAL IVP STA (17:22)
[2022-06-08] MEDS ORDERED: diphenhydrAMINE 50 MG/ML 1 ML VIAL IVP STA (17:22)
--- NOTE | 2022-06-08 17:27 | ED ---
General Adult HPI - General Chief complaint: Headache Stated complaint: throat problem Time Seen by Provider: 06/08/22 17:05 Source: patient Mode of arrival: ambulatory Limitations: no limitations - History of Present Illness Initial comments: Patient is a 51-year-old female presenting to the emergency room will complaints. She is complaining of diffuse mild abdominal pain, regular vomiting of phlegm causing her to wake often during the night, continuous feeling of phlegm in her throat, fatigue, persistent and recurrent headaches with known history of migraines despite treatment with migraine medication. She reports that the symptoms have been ongoing for some time and she has seen her primary care provider regarding them and was referred to neurology along with ENT. She had an MRI of the cervical spine with neurology which she state revealed a cyst that may be contributing to her symptoms which consequently prompted the refer ral to ENT. Her appointment with ENT as in approximately 2 weeks. She is not taking any current medications to treat sinus cysts or increase in sinus drainage including any antihistamines or nasal sprays. He reports that her vomiting she is experiencing is foamy frothy in nature more consistent with saliva secretions rather than bile and food content. She reports decrease in intake due to feeling as though she cannot swallow properly. She denies any difficulty in breathing or chest pain. She denies any fevers or chills. In addition to her migraine history she has a history of chronic pain syndrome, degenerative disc disease, GERD, hyperlipidemia and hypothyroidism. - Related Data Home Medications Medication Instructions Recorded Confirmed Levothyroxine Sodium [Synthroid] 88 mcg PO DAILY 12/08/17 06/08/22 Albuterol Sulfate [Proair Hfa] 2 puff INHALATION RT-QID PRN 03/31/22 06/08/22 Rimegepant Sulfate [Nurtec Odt] 75 mg PO Q48H PRN 03/31/22 06/08/22 Ubrogepant [Ubrelvy] 100 mg PO BID PRN 06/08/22 06/08/22 Allergies Allergy/AdvReac Type Severity Reaction Status Date / Time gabapentin Allergy Anaphylaxis Verified 06/08/22 17:04 naproxen [From Naprosyn] Allergy Unknown Verified 06/08/22 17:04 Penicillins Allergy Rash/Hives Verified 06/08/22 17:04 pregabalin [From Lyrica] Allergy Anaphylaxis Verified 06/08/22 17:04 Review of Systems ROS Statement: Those systems with pertinent positive or pertinent negative responses have been documented in the HPI. ROS Other: All systems not noted in ROS Statement are negative. Past Medical History Past Medical History: GERD/Reflux, Hyperlipidemia, Thyroid Disorder Additional Past Medical History / Comment(s): FREQUENT VOMITING, LOOSE BOWELS, HX HYPOTENSION, STATES HAS CYST ON RIGHT OVARY chronic pain syndrome ddd History of Any Multi-Drug Resistant Organisms: None Reported Past Surgical History: Appendectomy, Hysterectomy Additional Past Surgical History / Comment(s): D&C, vein removal Past Anesthesia/Blood Transfusion Reactions: No Reported Reaction Past Psychological History: No Psychological Hx Reported Smoking Status: Never smoker Past Alcohol Use History: None Reported Past Drug Use History: Marijuana General Exam - General Exam Comments Initial Comments: GENERAL: No acute distress, well developed, well nourished. Appears fatigued HEENT: Normocephalic, atraumatic. Pupils equal, round, reactive to light. Moist mucous membranes. Uvula deviation to the right. Mild parents injection without edema. Submandibular lymph node adenopathy. LUNGS: No respiratory distress. Clear to auscultation, no adventitious sounds, no use of accessory muscles. HEART: Regular rate and rhythm without murmur, rub, or gallop. ABDOMEN: Normal bowel sounds. Soft, non-distended. Mild generalized tenderness. No guarding or rebound tenderness BACK: Normal inspection. EXTREMITIES: No edema. No tenderness. Moves all extremities. NEUROLOGIC: Alert & oriented x 3. CN II-XII grossly intact. PSYCHIATRIC: Normal affect and behavior. DERMATOLOGIC: Skin intact, without rashes or lesions noted. Limitations: no limitations Course Vital Signs 06/08/22 06/08/22 06/08/22 17:01 19:10 20:00 Temperature 98.2 F Pulse Rate 60 53 L 52 L Respiratory 20 18 16 Rate Blood Pressure 102/59 89/56 95/71 O2 Sat by Pulse 97 98 100 Oximetry 06/08/22 21:00 Temperature Pulse Rate 49 L Respiratory 16 Rate Blood Pressure 96/59 O2 Sat by Pulse 99 Oximetry Medical Decision Making - Medical Decision Making Was pt. sent in by a medical professional or institution (, PA, DIALYSIS PATIENT CARE TECHNICIAN, urgent c are, hospital, or alf...) When possible be specific @ -No Did you speak to anyone other than the patient for history (EMS, parent, family, police, friend...)? What history was obtained from this source @ -Spouse Did you review nursing and triage notes (agree or disagree)? Why? @ -I reviewed and agree with nursing and triage notes Were old charts reviewed (outside hosp., previous admission, EMS record, old EKG, old radiological studies, urgent care reports/EKG's, alf records)? Report findings @ -No old charts were reviewed Differential Diagnosis (chest pain, altered mental status, abdominal pain women, abdominal pain men, vaginal bleeding, weakness, fever, dyspnea, syncope, headache, dizziness, GI bleed, back pain, seizure, CVA, palpatations, mental health)? @ -Differential Headache: Migraine, tension, cluster, carbon monoxide, central venous thrombosis, pension karma temporal arteritis, acute closure glaucoma, intercranial hemorrhage, mastoiditis, sinusitis, head injury, this is not meant to be an all-inclusive list. Differential Abdominal Pain Women: Appendicitis, Cholecystitis, diverticulosis, ischemic bowel, pancreatitis, hepatitis, UTI, gastroenteritis, AAA, incarcerated hernia, bowel obstruction, constipation, inflammatory bowel, hepatitis, peptic ulcer disease, splenic infarction, perforated viscus, vulvitis, ovarian torsion, PID, kidney stone, placenta abruption, this is not meant to be an all-inclusive list EKG interpreted by me (3pts min.). @ -None done X-rays interpreted by me (1pt min.). @ -None done CT interpreted by me (1pt min.). @ -CT soft tissue neck without contrast demonstrates no neck masses. Scattered submandibular lymph nodes noted. CT sinus without contrast demonstrates mild mucosal thickening and retention cysts no severe sinus disease. CT of the abdomen and pelvis with contrast demonstrates no ascites or free air in the abdomen. No evidence of obstruction. No pancreatic mass or inflammation noted. U/S interpreted by me (1pt. min.). @ -None done What testing was considered but not performed or refused? (CT, X-rays, U/S, labs)? Why? @ -CT of the brain considered but deferred due to recent follow-up with neurology, recent MRI, no change in characteristics of chronic migraines and no focal neurological deficits. What meds were considered but not given or refused? Why? @ -None Did you discuss the management of the patient with other professionals (professionals i.e. , PA, DIALYSIS PATIENT CARE TECHNICIAN, lab, RT, psych nurse, social welfare clerk, patient assistant, teacher, state patrol officer, vocational case manager)? Give summary @ -Sunita Collins with [facility] regarding recommendation for admission for intractable nausea and vomiting and elevated lipase. She is accepting of admission admission order to be placed to Dr. Bailey. Was smoking cessation discussed for >3mins.? @ -No Was critical care preformed (if so, how long)? @ -No Were there social determinants of health that impacted care today? How? (Homelessness, low income, unemployed, alcoholism, drug addiction, transportation, low edu. Level, literacy, decrease access to med. care, skilled nursing, rehab)? @ -No Was there de-escalation of care discussed even if they declined (Discuss DNR or withdrawal of care, Hospice)? DNR status @ -No What co-morbidities impacted this encounter? (DM, HTN, Smoking, COPD, CAD, Cancer, CVA, ARF, Chemo, Hep., AIDS, mental health diagnosis, sleep apnea, morbid obesity)? @ -Migraines and GERD Was patient admitted / discharged? Hospital course, mention meds given and route, prescriptions, significant lab abnormalities, going to OR and other pertinent info. @ -51-year-old female presenting to the emergency room with multiple complaints including headache, throat pain, recurrent nausea and vomiting, concerns regarding submandibular tenderness and excessive saliva production and mild generalized abdominal pain. ) Primary concerns with the inability to swallow tenderness upon exam to the submandibular region and concerns for significant sinus cysts will proceed with CT of the sinuses along with CT of soft tissue of the neck. Will give migraine cocktail consisting of Toradol, Reglan, Benadryl and IV fluids. Will obtain CBC, CMP, amylase and lipase. Headache and nausea with excessive mucus production improved after migraine cocktail as listed above. CT of the neck soft tissue with mild submandibular nodules. Saliva glands normal bilaterally larger right-sided cervical lymph node posterior to the submandibular salivary gland noted by radiologist. CBC unremarkable, CMP reveals chloride of 109 and glucose of 103 normal renal function normal electrolytes, normal liver enzymes. Amylase elevated at 177, lipase elevated at 1485. Given mild diffuse abdominal pain with elevated amylase and lipase will proceed with CT of the abdomen and pelvis without contrast and add A1c. CT of the abdomen without acute findings. A1c normal. Findings discussed at length with spouse and patient. Advised recommendation for admission for monitoring of lipase, further evaluation of enlarged posterior submandibular lymph node in the setting of excessive saliva production and treatment of intractable nausea and vomiting. Patient is agreeable to admission. Spoke with Sunita Collins with regarding admission recommendations. She is accepting of admission and recommends consult to ENT orders for continuous IV fluids along with IV fluids. Recommendation for IV Reglan also given and she agrees will jose ce these orders along with admission orders. Will admit patient in stable condition for further evaluation of intractable nausea vomiting and elevated lipase to [facility]. Undiagnosed new problem with uncertain prognosis? @ -Intractable nausea and vomiting Drug Therapy requiring intensive monitoring for toxicity (Heparin, Nitro, Insulin, Cardizem)? @ -No Were any procedures done? @ -No Diagnosis/symptom? @ -Intractable nausea and vomiting Acute, or Chronic, or Acute on Chronic? @ -Acute on chronic Uncomplicated (without systemic symptoms) or Complicated (systemic symptoms)? @ -Complicated Side effects of treatment? @ -No Exacerbation, Progression, or Severe Exacerbation? @ -No Poses a threat to life or bodily function? How? (Chest pain, [place], [place], pneumonia, PE, COPD, DKA, ARF, appy, cholecystitis, CVA, Diverticulitis, Homicidal, Suicidal, threat to staff... and all critical care pts) @ -Yes Diagnosis/symptom? @ -Headache Acute, or Chronic, or Acute on Chronic? @ -Acute on chronic Uncomplicated (without systemic symptoms) or Complicated (systemic symptoms)? @ -Uncomplicated Side effects of treatment? @ -none Exacerbation, Progression, or Severe Exacerbation] @ -no Poses a threat to life or bodily function? @ -no Diagnosis/symptom? @ -Elevated lipase Acute, or Chronic, or Acute on Chronic? @ -Acute Uncomplicated (without systemic symptoms) or Complicated (systemic symptoms)? @ -Uncomplicated Side effects of treatment? @ -none Exacerbation, Progression, or Severe Exacerbation] @ -no Poses a threat to life or bodily function? @ -Yes Case discussed with Dr. Reis - Lab Data Result diagrams: 06/08/22 17:35 06/08/22 17:35 Lab Results 06/08/22 06/08/22 06/08/22 Range/Units 17:35 17:35 18:33 WBC 7.0 (3.8-10.6) k/uL RBC 4.38 (3.80-5.40) m/uL Hgb 14.4 (11.4-16.0) gm/dL Hct 42.5 (34.0-46.0) % MCV 96.9 (80.0-100.0) fL MCH 33.0 (25.0-35.0) pg MCHC 34.0 (31.0-37.0) g/dL RDW 12.2 (11.5-15.5) % Plt Count 211 (150-450) k/uL MPV 7.8 Neutrophils % 43 % Lymphocytes % 41 % Monocytes % 7 % Eosinophils % 4 % Basophils % 1 % Neutrophils # 3.0 (1.3-7.7) k/uL Lymphocytes # 2.9 (1.0-4.8) k/uL Monocytes # 0.5 (0-1.0) k/uL Eosinophils # 0.3 (0-0.7) k/uL Basophils # 0.1 (0-0.2) k/uL Sodium 140 (137-145) mmol/L Potassium 3.9 (3.5-5.1) mmol/L Chloride 109 H (98-107) mmol/L Carbon Dioxide 26 (22-30) mmol/L Anion Gap 5 mmol/L BUN 14 (7-17) mg/dL Creatinine 0.80 (0.52-1.04) mg/dL Est GFR (CKD-EPI)AfAm >90 (>60 ml/min/1.73 sqM) Est GFR (CKD-EPI)NonAf 86 (>60 ml/min/1.73 sqM) Glucose 103 H (74-99) mg/dL Estimated Ave Glu mg/dL 102 Hemoglobin A1c 5.2 (0.0-6.0) % Calcium 9.2 (8.4-10.2) mg/dL Total Bilirubin 0.3 (0.2-1.3) mg/dL AST 24 (14-36) U/L ALT 21 (4-34) U/L Alkaline Phosphatase 86 (38-126) U/L Total Protein 6.5 (6.3-8.2) g/dL Albumin 4.2 (3.5-5.0) g/dL Amylase 177 H (30-110) U/L Lipase 1485 H (23-300) U/L Disposition Clinical Impression: Elevated lipase, Intractable nausea and vomiting Disposition: ADMITTED IP TO THIS HOSP Condition: Stable Is patient prescribed a controlled substance at d/c from ED?: No Time of Disposition: 20:05
[2022-06-08 17:53] LABS: Basophils # (A) 0.1 k/uL (0-0.2); Basophils % (A) 1 %; Eosinophils # (A) 0.3 k/uL (0-0.7); Eosinophils % (A) 4 %; HCT 42.5 % (34.0-46.0); HGB 14.4 gm/dL (11.4-16.0); Lymphocytes # (A) 2.9 k/uL (1.0-4.8); Lymphocytes % (A) 41 %; MCV 96.9 fL (80.0-100.0); Mean Platelet Volume 7.8; Monocytes # (A) 0.5 k/uL (0-1.0); Monocytes % (A) 7 %; Neutrophils % (A) 43 %; Platelet Count 211 k/uL (150-450); RBC 4.38 m/uL (3.80-5.40); RDW 12.2 % (11.5-15.5)
[2022-06-08 18:02] LABS: ALT 21 U/L (4-34); AST 24 U/L (14-36); African American GFR (CKD) >90 (>60 ml/min/1.73 sqM); Albumin 4.2 g/dL (3.5-5.0); Alkaline Phosphatase 86 U/L (38-126); Amylase 177 U/L (30-110); Anion Gap 5 mmol/L; Blood Urea Nitrogen 14 mg/dL (7-17); Calcium 9.2 mg/dL (8.4-10.2); Carbon Dioxide 26 mmol/L (22-30); Chloride 109 mmol/L (98-107); Glucose 103 mg/dL (74-99); Lipase 1485 U/L (23-300); Non-African American GFR(CKD) 86 (>60 ml/min/1.73 sqM); Potassium 3.9 mmol/L (3.5-5.1); Sodium 140 mmol/L (137-145); Total Bilirubin 0.3 mg/dL (0.2-1.3); Total Protein 6.5 g/dL (6.3-8.2)
--- NOTE | 2022-06-08 18:15 | CT ---
EXAMINATION TYPE: CT soft tissue neck wo con DATE OF EXAM: 06/08/2022 COMPARISON: None HISTORY: Submandibular nodules and tenderness CT DLP: 211.6 mGycm Automated exposure control for dose reduction was used. Images obtained from the frontal sinuses to the aortic arch with no contrast. Mediastinum appears normal. No adenopathy. There is normal branching pattern of the great vessels on the aortic arch. Trachea appears normal. Exam limited by motion. The parotid glands are symmetric. Cabrera bmandibular salivary glands are symmetric. There is a few submandibular anterior triangle cervical ly mph nodes. The largest is on the right side and measures 10 mm posterior to the submandibular salivar y gland. The prevertebral soft tissues are intact. Tonsils and adenoids appear normal. Epiglottis is normal. T he tongue appears normal. No pathologic fluid collection. The cervical vertebra have normal alignment. No compression fracture. Skull base is intact. There is normal aeration of the mastoid sinuses. There is minimal mucosal thickening in the maxillary sinuses . There is otherwise normal aeration of the paranasal sinuses. IMPRESSION: There are a few nonspecific submandibular lymph nodes. No suspicious neck mass.
--- NOTE | 2022-06-08 18:17 | CT ---
EXAMINATION TYPE: CT sinus wo con DATE OF EXAM: 06/08/2022 COMPARISON: None HISTORY: Severe congestion and headache CT DLP: 282.4 mGycm Automated exposure control for dose reduction was used. Images obtained from the bottom of the maxilla to the top of the frontal sinuses without contrast. There is mild mucosal thickening in the posterior maxillary sinuses. There are small mucous retention cysts. The maxilla is intact. Zygomatic arches appear normal. Nasal bone is intact. There is fairly normal aeration of the sphenoid ethmoid and frontal sinuses. There is normal aeration of the mastoid sinuses. Orbital margins are intact. No evidence of orbital blowout fracture. No evidence of retro-or bital mass. The nasal bone is intact. IMPRESSION: Minimal mucous retention cysts in the maxillary sinuses. Otherwise negative exam.
--- NOTE | 2022-06-08 19:21 | CT ---
EXAMINATION TYPE: CT abdomen pelvis w con DATE OF EXAM: 06/08/2022 COMPARISON: 10/03/2016 HISTORY: abdominal pain, nausea CT DLP: 662.9 mGycm Automated exposure control for dose reduction was used. CONTRAST: Performed with IV Contrast, patient injected with 100 mL of Isovue 300. Images obtained from the diaphragm to the floor the pelvis with the IV contrast. There is mild subsegmental atelectasis at the right posterior lung base. No pleural effusion. Heart s ize is normal. No pericardial effusion. Liver and spleen are intact. No pancreatic mass. There are clips from cholecystectomy. The bile ducts are not dilated. There is no adrenal mass. Kidneys show satisfactory contrast opacification. No hydronephrosis. The st omach is intact. There is no adrenal mass. Kidneys show satisfactory contrast opacification. No hydronephrosis. Ureter s are not dilated. No retroperitoneal adenopathy. Abdominal aorta is atheromatous. Bladder distends s moothly. There is left hip prosthesis. The bony pelvis is intact. The hip joints are intact. Sacroili ac joints are intact. The lumbar vertebrae have normal alignment. There is narrowing at L4-5 disc wit h active disc and spur formation. No compression fracture. There is no mesenteric edema. No ascites or free air. No sign of a bowel obstruction. Appendix not cl early seen. No sign of thickened appendix terminal ileum appears normal. IMPRESSION: There is some mild atelectasis and scarring at the right posterior lung base which is improved compar ed to old exam. Normal heart. No acute abnormality within the abdomen and pelvis. Atherosclerotic vas cular disease.
[2022-06-08] MEDS ORDERED: NALOXONE 0.4 MG/ML 1 ML VIAL IV PRN (19:59)
[2022-06-08] MEDS: SODIUM CHLORIDE 0.9% 1,000 ML IV SCH (20:29)
[2022-06-08] MEDS: PANTOPRAZOLE 40 MG/10 ML VIAL IV SCH (20:29)
[2022-06-08] MEDS ORDERED: ALBUTEROL NEBULIZED 2.5 MG/3 ML INHALATION PRN (22:53)
[2022-06-08] MEDS ORDERED: ACETAMINOPHEN TAB 325 MG TAB PO PRN (22:53)
[2022-06-08] MEDS: METOCLOPRAMIDE 5 MG/ML 2 ML VIAL IVP SCH (23:41)
[2022-06-09] MEDS: METOCLOPRAMIDE 5 MG/ML 2 ML VIAL IVP SCH ×2 (05:49→11:10)
[2022-06-09] MEDS: SODIUM CHLORIDE 0.9% 1,000 ML IV SCH ×2 (05:50→11:10)
[2022-06-09] MEDS ORDERED: LEVOTHYROXINE 88 MCG TAB PO SCH (06:30)
[2022-06-09] MEDS: PANTOPRAZOLE 40 MG/10 ML VIAL IV SCH (08:44)
[2022-06-09 08:51] LABS: Amylase 64 U/L (23-121); Lipase 46 U/L (14-63)
[2022-06-09 09:22] VITALS: BP 99/50; PULSE 60; RESP 16; TEMP 98.2
[2022-06-09] MEDS ORDERED: PATIENT'S OWN (Rimegepant Sulfate [Nurtec Odt] 75 MG Tablet) PO PRN (09:44)
[2022-06-09] MEDS ORDERED: PATIENT'S OWN (Ubrogepant [Ubrelvy] 100 MG Tablet) PO PRN (09:44)
[2022-06-09] MEDS ORDERED: BUTALB/APAP/CAFF 50-325-40MG TAB PO PRN (09:44)
--- NOTE | 2022-06-09 14:24 | P.HPIM ---
History of Present Illness 51-year-old female came in with complains of nausea vomiting. Patient was comparing of sinusitis Symptoms Patient Does Have Sinusitis Which Appears and assist in the maxillary sinus. Patient's symptoms improved patient does have hi story of migraine and she was also having headache for which she believes is secondary to migraine rather than sinusitis. Patient is ubrelvy for migraine. Patient's symptoms improved at this time will advance her diet if she can tolerate patient will be discharged to follow up with ENT as an outpatient. REVIEW OF SYSTEMS: CONSTITUTIONAL: No fever, no malaise, no fatigue. HEENT: No recent visual problems or hearing problems. Denied any sore throat. CARDIOVASCULAR: No chest pain, orthopnea, PND, no palpitations, no syncope. PULMONARY: No shortness of breath, no cough, no hemoptysis. GASTROINTESTINAL: no abdominal pain. NEUROLOGICAL: No headaches, no weakness, no numbness. HEMATOLOGICAL: Denies any bleeding or petechiae. GENITOURINARY: Denies any burning micturition, frequency, or urgency. MUSCULOSKELETAL/RHEUMATOLOGICAL: Denies any joint pain, swelling, or any muscle pain. ENDOCRINE: Denies any polyuria or polydipsia. The rest of the 14-point review of systems is negative. PHYSICAL EXAMINATION: GENERAL: The patient is alert and oriented x3, not in any acute distress. Well developed, well nourished. HEENT: Pupils are round and equally reacting to light. EOMI. No scleral icterus. No conjunctival pallor. Normocephalic, atraumatic. No pharyngeal erythema. No thyromegaly. CARDIOVASCULAR: S1 and S2 present. No murmurs, rubs, or gallops. PULMONARY: Chest is clear to auscultation, no wheezing or crackles. ABDOMEN: Soft, nontender, nondistended, normoactive bowel sounds. No palpable organomegaly. MUSCULOSKELETAL: No joint swelling or deformity. EXTREMITIES: No cyanosis, clubbing, or pedal edema. NEUROLOGICAL: Gross neurological examination did not reveal any focal deficits. SKIN: No rashes. Assessment and plan -Nausea vomiting: May be related to migraine or gastritis or gastric enteritis patient will be discharged on Prilosec. -ALLERGIC sinusitis with intermittent headache. Patient originally discharged on Claritin with follow-up with ENT as an outpatient -Hypothyroidism History of migraine for which she'll follow the neurologist as an outpatient -Hyperlipidemia Patient will be discharged with the above-mentioned plan Past Medical History Past Medical History: GERD/Reflux, Hyperlipidemia, Thyroid Disorder Additional Past Medical History / Comment(s): FREQUENT VOMITING, LOOSE BOWELS, HX HYPOTENSION, STATES HAS CYST ON RIGHT OVARY chronic pain syndrome ddd History of Any Multi-Drug Resistant Organisms: None Reported Past Surgical History: Appendectomy, Hysterectomy Additional Past Surgical History / Comment(s): D&C, vein removal Past Anesthesia/Blood Transfusion Reactions: No Reported Reaction Past Psychological History: No Psychological Hx Reported Smoking Status: Never smoker Past Alcohol Use History: None Reported Past Drug Use History: Marijuana Medications and Allergies Home Medications Medication Instructions Recorded Confirmed Type Levothyroxine Sodium [Synthroid] 88 mcg PO DAILY 12/08/17 06/08/22 History Albuterol Sulfate [Proair Hfa] 2 puff INHALATION RT-QID PRN 03/31/22 06/08/22 History Rimegepant Sulfate [Nurtec Odt] 75 mg PO Q48H PRN 03/31/22 06/08/22 History Ubrogepant [Ubrelvy] 100 mg PO BID PRN 06/08/22 06/08/22 History Loratadine [Claritin] 10 mg PO DAILY #14 tab 06/09/22 Rx Omeprazole [PriLOSEC] 40 mg PO AC-BRKFST #14 cap 06/09/22 Rx Allergies Allergy/AdvReac Type Severity Reaction Status Date / Time gabapentin Allergy Anaphylaxis Verified 06/08/22 17:04 naproxen [From Naprosyn] Allergy Unknown Verified 06/08/22 17:04 Penicillins Allergy Rash/Hives Verified 06/08/22 17:04 pregabalin [From Lyrica] Allergy Anaphylaxis Verified 06/08/22 17:04 Physical Exam Vitals: Vital Signs Temp Pulse Pulse Resp BP BP BP 06/09/22 07:00 98.2 F 60 16 99/50 06/09/22 02:42 97.8 F 63 17 95/49 06/09/22 01:29 53 L 17 06/08/22 23:25 97.4 F L 53 L 17 97/59 06/08/22 21:00 49 L 16 96/59 06/08/22 20:00 52 L 16 95/71 06/08/22 19:10 53 L 18 89/56 06/08/22 17:01 98.2 F 60 20 102/59 Pulse Ox 06/09/22 07:00 100 06/09/22 02:42 100 06/09/22 01:29 06/08/22 23:25 100 06/08/22 21:00 99 06/08/22 20:00 100 06/08/22 19:10 98 06/08/22 17:01 97 Intake and Output 06/08/22 06/09/22 06/09/22 22:59 06:59 14:59 Other: Voiding Method Toilet # Voids 2 Weight 65.771 kg 65.771 kg Results CBC & Chem 7: 06/08/22 17:35 06/08/22 17:35 Labs: Abnormal Lab Results - Last 24 Hours (Table) 06/08/22 Range/Units 17:35 Chloride 109 H (98-107) mmol/L Glucose 103 H (74-99) mg/dL Amylase 177 H (30-110) U/L Lipase 1485 H (23-300) U/L Thrombosis Risk Factor Assmnt - Choose All That Apply Each Factor Represents 1 point: Age 41-60 years Other Risk Factors: No Other congenital or acquired thrombophilia - If yes, enter type in comment: No Thrombosis Risk Factor Assessment Total Risk Factor Score: 1 Thrombosis Risk Factor Assessment Level: Low Risk
== END 2022-06-09 12:22 | disposition home or self-care (01) ==
LOC: EC 17:00 → 6NMEDSUR 22:49
PROVIDERS: ADMIT Internal Medicine; ATTEND Internal Medicine
DX: R11.2 Nausea with vomiting, unspecified (principal); G43.909 Migraine, unspecified, not intractable, without status migrainosus; J30.9 Allergic rhinitis, unspecified; J32.0 Chronic maxillary sinusitis; E03.9 Hypothyroidism, unspecified; J34.1 Cyst and mucocele of nose and nasal sinus; E78.5 Hyperlipidemia, unspecified; K21.9 Gastro-esophageal reflux disease without esophagitis; N83.201 Unspecified ovarian cyst, right side; R74.8 Abnormal levels of other serum enzymes; K11.7 Disturbances of salivary secretion; G89.4 Chronic pain syndrome; Z79.890 Hormone replacement therapy; Z79.899 Other long term (current) drug therapy; Z88.0 Allergy status to penicillin; Z88.6 Allergy status to analgesic agent; Z88.8 Allergy status to other drugs, medicaments and biological substances; Z90.49 Acquired absence of other specified parts of digestive tract; Z90.710 Acquired absence of both cervix and uterus; Z98.890 Other specified postprocedural states
CPT/HCPCS: 96376 ×2; 96361; 96374; 96375; 99285; 36415; 92610; 80053; 82150 ×2; 83690 ×2; 85025; 83036; 70490; 74177; 70486; G0378 ×2; J1200; J2765 ×2; J1885; C9113 ×2; Q9967

== ENCOUNTER → 2023-02-26 | Outpatient (CLI) | payer OTHER ==
--- NOTE | 2023-02-26 18:50 | MR ---
EXAMINATION TYPE: MR cervical spine wo con DATE OF EXAM: 02/26/2023 COMPARISON: 06/04/2022 HISTORY: 52-year-old female M47.22, neck pain, upper body numbness. TECHNIQUE: Multiplanar, multisequence images of the cervical spine were acquired without contrast. FINDINGS: No craniocervical junction of the body, predental space widening, or prevertebral soft tissue swellin g. There is preserved alignment of the cervical spine. Some edematous Modic type I endplate change posteriorly at C6-C7. Mild multilevel degenerative disc d isease characterized by desiccated and mild bulging discs. Disc space narrowing at C6-C7. Scattered mild facet and uncovertebral joint arthropathy is present. Minimal ligamentum flavum thicke александр lower cervical spine. Disc osteophyte complexes particularly at C5-C6 and C6/C7 contiguous with uncovertebral joint arthrop athy. This results in mild narrowing of the spinal canal at both of these levels. No significant spinal can al stenosis or cord compression. Normal course, caliber, and signal intensity of the cervical spinal cord. At C6/C7, changes result in moderate left and mild right neural foraminal stenosis. At C7-T1, mild left neuroforaminal stenosis. Otherwise, no significant neuroforaminal narrowing. No prevertebral or paravertebral soft tissue abnormality seen. IMPRESSION: 1. Mild multilevel degenerative disc disease. More moderate at C6-C7 with some associated edematous M odic type I endplate change. 2. Disc osteophyte complexes at both C5-C6 and C6-C7 mildly narrow the spinal canal. No significant s jeri canal stenosis or canal compromise. 3. Scattered mild facet and uncovertebral joint arthropathy. At C6-C7, these changes result in modera te left and mild right neuroforaminal stenosis. 4. Overall changes are similar to 06/04/2022.
== END | disposition home or self-care (01) ==
LOC: RADMRIMAIN 12:47
PROVIDERS: ATTEND Orthopaedic Surgery
DX: M47.22 Other spondylosis with radiculopathy, cervical region (principal); M25.78 Osteophyte, vertebrae; M48.02 Spinal stenosis, cervical region; M50.123 Cervical disc disorder at C6-C7 level with radiculopathy
CPT/HCPCS: 72141

== ENCOUNTER → 2023-03-03 | Outpatient (CLI) | payer OTHER | END | disposition home or self-care (01) | LOC: LABWHC1 13:36 | PROVIDERS: ATTEND Internal Medicine Endocrinology, Diabetes & Metabolism | DX: E03.8 Other specified hypothyroidism (principal) | CPT/HCPCS: 36415; 84443 ==

== ENCOUNTER → 2023-03-25 | Outpatient (CLI) | payer OTHER ==
--- NOTE | 2023-03-26 08:14 | CT ---
EXAMINATION TYPE: CT cervical spine wo con CT DLP: 362.40 mGycm, Automated exposure control for dose reduction was used. DATE OF EXAM: 03/25/2023 4:36 PM COMPARISON: MRI cervical spine 02/26/2023. CLINICAL INDICATION:Female, 52 years old with history of M54.2 CERVICALGIA M47.812; PHH, Cervical markie n, surgery scheduled for April TECHNIQUE: Axial CT images from the skull base to the inferior aspect of T2 we obtained without intra venous contrast. Coronal and sagittal reformatted images were also reviewed. FINDINGS: Fracture: None. Osseous structures: Mild disc space narrowing with endplate sclerosis at C6-C7. Vertebral alignment: No spondylolisthesis. Straightening of the cervical spine which may be due to pa tient position versus muscle spasm. Spinal canal/Neural Foramina: Posterior disc osteophyte complex at C5-C6 and C6-C7 resulting in mild central canal stenosis. Uncovertebral joint hypertrophy at C5-C6 with mild bilateral neural foraminal stenosis. Uncovertebral joint hypertrophy at C5-C6 and C6-C7 resulting in moderate left and mild rig ht neural foraminal stenosis. Neck soft tissues: Prevertebral soft tissues are within normal limits. Other: The airway is patent. Mild centrilobular and paraseptal emphysematous changes. Biapical pleura l-parenchymal scarring. Mild mucosal thickening in the right ethmoid sinus. Bilateral maxillary sinus small mucous retention cysts. IMPRESSION: 1. No evidence of cervical spine fracture. 2. Mild multilevel degenerative disc disease at C5-C6 and C6-C7 corresponding to recent MRI. Posterio r disc osteophyte complexes at C5-C6 and C6-C7 with mild central canal stenosis. Uncovertebral joint hypertrophy at these levels as described above.
== END | disposition home or self-care (01) ==
LOC: RADCTMAIN 16:16
PROVIDERS: ATTEND Orthopaedic Surgery
DX: M47.812 Spondylosis without myelopathy or radiculopathy, cervical region (principal); M50.322 Other cervical disc degeneration at C5-C6 level; M48.02 Spinal stenosis, cervical region; M25.78 Osteophyte, vertebrae
CPT/HCPCS: 72125

== ENCOUNTER → 2023-03-25 | Outpatient (CLI) | payer OTHER ==
--- NOTE | 2023-03-26 07:59 | US ---
EXAMINATION TYPE: US thyroid st tissue head/neck DATE OF EXAM: 03/25/2023 COMPARISON: NONE CLINICAL INDICATION: Female, 52 years old with history of E04.2 MULTINODULAR GOITER; GLAND SIZE: Right Lobe: 3.6X1.2X1.1 cm Overall Parenchyma: heterogenous Left Lobe: 3.0X1.3X1.3 cm Overall Parenchyma: heterogenous Isthmus Thickness: 0.2 cm NODULES RIGHT: # of nodules measured on right: 1 1. 0.9 X 0.4 x 0.5 cm, lower lateral, Prior size: 0.9 x 0.7 x 0.6 cm TIRADS Score: 4 TIRADS Category 4: Composition: Solid or almost completely solid (2 points). Echogenicity: Hypoechoic (2 points). Shape: Wider than tall (0 points). Margin: Smooth (0 points). Echogenic foci: None or large comet-tail artifacts (0 points) Recommendation: If >1.5cm: FNA; If >1cm: Follow up at 1,2, 3,5 years LEFT: # of nodules measured on left: 1 1. 0.5 X 0.3 x 0.4 cm, lower mid, Prior size: 0.5 x 0.2 x 0.5 cm TIRADS Score: 4 TIRADS Category 4: Composition: Solid or almost completely solid (2 points). Echogenicity: Hypoechoic (2 points). Shape: Wider than tall (0 points). Margin: Ill-defined (0 points). Echogenic foci: None or large comet-tail artifacts (0 points) Recommendation: If >1.5cm: FNA; If >1cm: Follow up at 1,2, 3,5 years ISTHMUS: # of nodules measured in the isthmus: 0 Bilateral neck scanned, no evidence of lymphadenopathy. HETEROGENOUS ECHOTEXTURE IMPRESSION: Bilateral thyroid nodules as described above.
== END | disposition home or self-care (01) ==
LOC: RADUSWWP 15:36
PROVIDERS: ATTEND Internal Medicine Endocrinology, Diabetes & Metabolism
DX: E04.2 Nontoxic multinodular goiter (principal)
CPT/HCPCS: 76536

== ENCOUNTER → 2023-04-23 | Outpatient (CLI) | payer OTHER ==
[2023-04-23 10:05] LABS: Partial Thromboplastin Time 23.3 sec (22.0-30.0); Prothrombin Time 10.5 sec (10.0-12.5)
[2023-04-23 10:10] LABS: NT-Pro-B-Type Natriuretic Pept 161 pg/mL
[2023-04-23 16:25] LABS: LDL Cholesterol,Calculated 90.2 mg/dL (0.0-131.0)
[2023-04-23 20:18] LABS: Cardiolipin Ab IgG Interp Negative (Negative); Cardiolipin Ab IgM Interp Negative (Negative); Cardiolipin IgA Antibody <2.0 U/mL; Cardiolipin IgM Antibody <1.5 U/mL
== END | disposition home or self-care (01) ==
LOC: LABPAT 08:54
PROVIDERS: ATTEND Orthopaedic Surgery
DX: Z01.812 Encounter for preprocedural laboratory examination (principal); M50.20 Other cervical disc displacement, unspecified cervical region; M48.02 Spinal stenosis, cervical region; M54.12 Radiculopathy, cervical region; I25.10 Atherosclerotic heart disease of native coronary artery without angina pectoris; E78.5 Hyperlipidemia, unspecified; E11.9 Type 2 diabetes mellitus without complications; D68.9 Coagulation defect, unspecified; Z22.322 Carrier or suspected carrier of Methicillin resistant Staphylococcus aureus
CPT/HCPCS: 80061; 83036; 83880; 85610; 85730; 86147; 86850; 86900; 86901; 87070

== ENCOUNTER 2023-05-08 11:45 | Day surgery (SDC) | payer OTHER ==
[2023-05-05 11:06] VITALS: BMI 24.3
--- NOTE | 2023-05-08 11:12 | P.HPOR ---
History of Present Illness H&P Date: 04/15/23 .D:Date: 04/15/23 : 11:25am .T:Title: [facility] History and Physical Date of :70 [id number]: NKDA Age: 52 year Height: 5'3" Weight: 135 lbs BP:146/80 BMI: 23.91 kg/m2 Occupation: Steel work VAS: 10 Hand:Right Spine Surgery Risk Review Ms. Maria is presenting for evaluation of cervical pain. It was my pleasure to have seen and examined Ms. Maria. In our visit today we have had a chance to go over subjective complaints, physical examination findings and treatments including the natural course history without intervention and various interventional options. The patients imaging demonstrates: XRay Cervical multiview (Lateral, Flexion, Extension, AP, Oblique) 5 views taken at [facility] on 04/07/22 of Lumbar Spine and Pelvis: - Imaging reviewed with the patient today and demonstrate: mild spondylotic changes C6-C7 with disc height loss. Mild facet arthrosis. Overall alignment is otherwise maintained excellent cervical C1 2 joints are stable. No other severe collapse noted. XRay Cervical multiview (Lateral,AP) 2 views taken at [facility] on 11/23/22: No acute changes from previous films. [facility] of CervicalSpine: - Images reviewed with the patient today and demonstrate: C5 to 7 spondylosis with degenerative anterior collapse disc herniation C5 through 7 causing moderate to severe central as well as foraminal stenosis. No acute fractures are noted at this time. Since fairly isolated disc disease. No other lesions noted occipital cervical C1 2 joints are stable. On physical exam, Ms. Maria demonstrates: The patient states that since her last visit her symptoms have significantly. Today, the patient reports a sharp, shooting cervical pain. She states her shoulders feel numb and that she has tingling in her fingers. Patient also notes decreased cervical range of motion. Patient reports she has had an increase in upper extremity numbness and weakness with the right being worse than the left. Patient states her symptoms worsen when she is lying flat on her back. Patient notes her neck is totally numb in the morning with a pressure sensation. She also reports she is having headaches. Patient is having severe sleep disturbances due to her ongoing pain and symptoms. Her symptoms are exacerbated with any rotation or flexion of her cervical spine. I have explained to the patient that as their condition progresses it will cause further neurological deficits and eventual paralysis. Based on the patients imaging, physical exam, and the rapid progression and disabling nature of their symptoms, at this time I recommend surgery in the form of a: C5-7 Total Disc Replacement. I discussed the risk and benefits of this procedure at length with Ms. Maria. The patient and significant other agreed to considered pursuing the procedure abovementioned. Prior to surgery, she should follow up with her PCP (Cardio, ID, IM etc) for clearance. Questions were invited and answered, and the patient wishes to proceed as outlined below. Currently, I am recommendin.C5-7 Total Disc Replacement 2.Follow up with PCP for surgical clearance 3.Review of surgical risks and benefits as well as an educational packet on the proposed surgical procedure. Risks: All surgical procedures come with inherent risks, including those related to positioning, anesthesia, intraoperative findings, and postoperative complications. It is important to understand that surgery does not come with any guarantee of a successful outcome as complications and adverse events are always possible. The patient was given a handout in office today discussing the surgical procedure and risks associated with the intervention, both of which were discussed with the patient. These risks include but are not limited to the following: * Experiencing same, different or even worse symptoms in back, neck, arms, or legs compared to before surgery. Requiring further surgery or other forms of treatment presently or at some time in the future at same or other levels of the intended spine surgery. On an extreme but fortunately relatively rare basis severe complication such as blindness, stroke, heart attack, temporary and/or permanent nerve injury, paralysis, coma, or may occur, sometimes without known explanation. Surgical complications may include but are not limited to risk of infection, fluid accumulation in the surgical dissection site, including a seroma or hematoma, that requires additional surgery, wound drainage, bleeding, new numbness or weakness, vision changes/loss, spinal fluid leakage, non-healing and/or infected incision, headaches, difficulty or inability to swallow, hoarseness, hemopneumothorax, pneumothorax, impotence, retrograde ejaculation, vaginal dryness; injury to nerves, spinal cord, blood vessels, lymphatics or other vital organs (i.e., bowel injury, injury to the great vessels); heterotopic bone formation; complications related to the hardware such as screws, rods, cages including misplaced hardware, device failure, instrumentation at the wrong spine level, hardware fracture/breakage, or hardware loosening; vertebral failure of the spinal column above or below the newly placed hardware; retained surgical instrumentations or devices and the need for further surgery. * Medical risks of the planned spine surgery include but are not limited to generalized Infections to the whole body or local areas outside of the surgical site (sepsis), heart attack, bleeding, anaphylaxis, meningitis, seizure, epilepsy, hearing loss, burn selby, laceration of the head or other areas of the body, bruising, hypersensitivity of the skin, bladder over distension; allergic reaction; shoulder injury related to positioning; fat, blood and air clots to other areas of the body like heart, lungs, brain; failure of internal organs such as lungs, kidneys, liver and excessive bleeding. If blood transfusions are necessary, note that transfusions may cause intolerance reactions such as anaphylaxis or other complex reactions. Despite best efforts, the results of spine surgery might not heal in terms of bone, soft tissues such as skin, fascia, ligaments, and joints. Additionally, in order to achieve best possible results, spine surgery may be carried out beyond the initially planned levels and involve decompression, fusion including insertion of hardware at levels other than the original intended area of surgical interest change some portions of the procedure in order to ensure the best possible outcomes. With spine surgery and spinal fusion, there are different off label uses of instrumentation (devices, implants and hardware) as well as biological substances (bone morphogenic proteins, demineralized bone matrix) as well as using extra bone from allograft sources (i.e. cadaver bone) or autograft (iliac crest bone, ribs, or the spine itself). The patient has been given information about these practices and their inherent risks and benefits. [facility] is an educational center that serves as a training facility for neurosurgical and orthopedic RN ACUTE and Nursing students. Physician assistants are medically trained surgical providers who function in the outpatient, inpatient, and operating room setting under the direct supervision of the attending surgeon. [facility] has multiple operating rooms with single and overlapping rooms running daily. They currently function under the required guidelines as produced by the [facility] Finance Committee with regards to the overlapping rooms and will continue to comply with changes to this policy as they occur. The requirements include and are complied with as follows: (1) the critical portions of the overlapping rooms will not occur at the same time, (2) the attending physician will be physically present during the critical portions of the procedure and immediately available during the entire case, and (3) a back-up attending is designated should the primary attending not be immediately available. The patient has had a chance to review all the listed information, has been given print outs detailing this information, and has had all his/her questions answered to their satisfaction. It was my pleasure to have seen and examined Ms. Maria. In our visit today we have had a chance to go over my understanding of our patient's current condition, the natural course history without intervention and various interventional options. Questions were invited and answered, and the patient wishes to proceed as outlined above. I have seen and examined the patient for 25 minutes and we have spent more than 50% of the time in repeat and detailed counseling about the patient's condition, its natural course history with out and as much as can be predicted with surgery and re-review of various surgical treatment options. In conclusion, Ms. Maria and her spouse requested we proceed with the above suggested surgery and are willing to accept risks and limitations of the suggested surgery as nature of the disease process and our best attempts at treatment for the condition. Thank you again for allowing us to be part of your patient's care. Please don't hesitate to contact me if you have any further questions. Follow-up: Post procedure Patient Education: (Informational booklet, instructions, etc) given at today's appointment: Yes .ED:Patient Education: Y Medications Reviewed: YES In our visit today Ms. Maria and I have had a chance to go over my understanding of the patient's current condition, the natural course history without intervention and various interventional options. Questions were invited and answered, and the patient wishes to proceed as outlined above. I will be sure to keep you updated afterMs. Maria returns here for further follow-up. Thank you again for your referral. Please do not hesitate to contact me if you have any further questions. Signed and authenticated by: Alexandre [facility] [address] This message is confidential, intended only for the named recipient(s) and may contain information that is privileged or exempt from disclosure under [place] law. If you are not the intended recipient(s), you are notified that the dissemination, distribution or copying of this information is strictly prohibited. If you received this message in error, please notify the sender then delete this message. Patient verbalizes understanding of the information discussed. The above note was initiated by Aleah Crespo, physician recording certified ophthalmic surgical assistant for Dr. Alexandre Sibley. This note has been reviewed by Dr. Sibley, who has made his personal changes and impressions for this document. CC: Saundra Kulkarni M.D. # SIGNED BY Alexandre Sibley (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 History of Any Multi-Drug Resistant Organisms: None Reported Past Surgical History: Appendectomy, Cholecystectomy, Hysterectomy, Joint Replacement Additional Past Surgical History / Comment(s): D&C, vein removal, Left hip replacement Past Anesthesia/Blood Transfusion Reactions: No Reported Reaction Past Psychological History: No Psychological Hx Reported Smoking Status: Never smoker Past Alcohol Use History: None Reported Past Drug Use History: Marijuana - Past Family History Mother Family Medical History: No Reported History Medications and Allergies Home Medications Medication Instructions Recorded Confirmed Type Atorvastatin [Lipitor] 20 mg PO DAILY 05/05/23 05/05/23 History Levothyroxine Sodium [Synthroid] 100 mcg PO DAILY 05/05/23 05/05/23 History Allergies Allergy/AdvReac Type Severity Reaction Status Date / Time gabapentin Allergy Anaphylaxis Verified 05/05/23 10:39 naproxen [From Naprosyn] Allergy Unknown Verified 05/05/23 10:39 Penicillins Allergy Rash/Hives Verified 05/05/23 10:39 pregabalin [From Lyrica] Allergy Anaphylaxis Verified 05/05/23 10:39 Physical Examination Osteopathic Statement: *. No significant issues noted on an osteopathic structural exam other than those noted in the History and Physical/Consult.
[~2023-05-08 11:45] MED LIST changes: +ONDANSETRON 4 MG/2 ML VIAL IVP PRN; +TRANEXAMIC 1,000 MG/100ML-NACL 1,000 MG in SALINE 1 100ML.BAG IVPB PRN; -TRANEXAMIC ACID IN NACL,ISO-OS 1,000 MG in SALINE 1 100ML.BAG IVPB PRN; +[UNRECOGNIZED DRUG - REMARK] MISCELLANE ONE
[2023-05-08] MEDS ORDERED: droPERidol 5 MG/2 ML VIAL IVP ONE (12:32)
[2023-05-08] MEDS ORDERED: HYDROmorphone 0.5 MG/0.5 ML SYRINGE IVP PRN ×2 (12:32→13:16)
[2023-05-08] MEDS ORDERED: ONDANSETRON 4 MG/2 ML VIAL IVP ONE (12:32)
[2023-05-08] MEDS ORDERED: LIDOCAINE 1% (10MG/ML) FOR IV START INTRADERMA PRN (12:32)
[2023-05-08] MEDS: LACTATED RINGERS 1,000 ML IV SCH (13:00)
[2023-05-08] MEDS ORDERED: HYDROmorphone 1 MG/ML 1 ML SYRINGE IVP PRN (13:16)
[2023-05-08] MEDS ORDERED: SENNOSIDES-DOCUSATE SODIUM 1 EACH TAB PO PRN (13:16)
[2023-05-08] MEDS ORDERED: MAGNESIUM HYDROXIDE 2,400 MG/30 ML CUP PO PRN (13:16)
[2023-05-08] MEDS ORDERED: HYDROcodone/APAP 5-325MG 1 EACH TAB PO PRN (13:16)
[2023-05-08] MEDS ORDERED: CYCLOBENZAPRINE 5 MG TAB PO PRN (13:16)
[2023-05-08] MEDS ORDERED: PROPOFOL 10 MG/ML 20 ML VIAL IV ONE (13:44)
[2023-05-08] MEDS ORDERED: KETOROLAC 15 MG/ML 1 ML VIAL ONE (13:44)
[2023-05-08] MEDS ORDERED: fentaNYL (PF) 50 MCG/ML 2 ML AMP ONE (13:44)
[2023-05-08] MEDS ORDERED: TRANEXAMIC 1,000 MG/100ML-NACL PREMIX BAG ONE (13:44)
[2023-05-08] MEDS ORDERED: NEOSTIGMINE 1 MG/ML 10 ML VIAL ONE (13:44)
[2023-05-08] MEDS ORDERED: GLYCOPYRROLATE 0.2 MG/ML 2 ML VIAL ONE (13:44)
[2023-05-08] MEDS ORDERED: KETAMINE HCL IN 0.9 % NACL 50 MG/5 ML SYRINGE ONE (13:44)
[2023-05-08] MEDS ORDERED: SUCCINYLCHOLINE CHLORIDE 200 MG/10 ML VIAL IV ONE (13:44)
[2023-05-08] MEDS ORDERED: ROCURONIUM 10 MG/ML (5 ML VIAL) IV ONE (13:44)
[2023-05-08] MEDS ORDERED: LIDOCAINE 1% INJ 10MG/ML (20 ML MDV) ONE (13:44)
[2023-05-08] MEDS ORDERED: MIDAZOLAM 2 MG/2 ML VIAL ONE (13:44)
[2023-05-08] MEDS ORDERED: GELATIN SPONGE,ABSORB (LARGE) 1 EACH SPONGE TOPICAL ONE (14:26)
[2023-05-08] MEDS ORDERED: THROMBIN (BOVINE) 5,000 UNIT VIAL TOPICAL ONE (14:26)
[2023-05-08] MEDS ORDERED: LACTATED RINGERS 1,000 ML IV ONE (15:31)
--- NOTE | 2023-05-08 15:46 | P.OP ---
Date of Procedure: 05/08/23 Preoperative Diagnosis: 1. C5-6, C6-7 HNP WITH RADICULOPATHY 2. UE WEAKNESS 3. NECK PAIN Postoperative Diagnosis: 1. C5-6, C6-7 HNP WITH RADICULOPATHY 2. UE WEAKNESS 3. NECK PAIN Procedure(s) Performed: C5-6, C6-7 TOTAL DISC REPLACEMENT [id number] USE OF IONM USE OF IO MICROSCOPE Implants: PRO DISC C 6 MM LARGE X2 Anesthesia: GETA Surgeon: Alexandre Sibley Breast Buffer #1: Arjun Flores (WAS PRESENT AND ASSISTED WITH ALL ASPECTS OF THE CASE FROM POSITIONING TO CLOSURE) Estimated Blood Loss (ml): 25 IV fluids (ml): 1,500 Urine output (ml): 250 Pathology: none sent Condition: stable Disposition: PACU Indications for Procedure: Ms. Maria is presenting for evaluation of cervical pain. It was my pleasure to have seen and examined Ms. Maria. In our visit today we have had a chance to go over subjective complaints, physical examination findings and treatments including the natural course history without intervention and various interventional options. The patients imaging demonstrates: XRay Cervical multiview (Lateral, Flexion, Extension, AP, Oblique) 5 views taken at [facility] on 04/07/22 of Lumbar Spine and Pelvis: - Imaging reviewed with the patient today and demonstrate: mild spondylotic changes C6-C7 with disc height loss. Mild facet arthrosis. Overall alignment is otherwise maintained excellent cervical C1 2 joints are stable. No other severe collapse noted. XRay Cervical multiview (Lateral,AP) 2 views taken at [facility] on 11/23/22: No acute changes from previous films. [facility]23 of CervicalSpine: - Images reviewed with the patient today and demonstrate: C5 to 7 spondylosis with degenerative anterior collapse disc herniation C5 through 7 causing moderate to severe central as well as foraminal stenosis. No acute fractures are noted at this time. Since fairly isolated disc disease. No other lesions noted occipital cervical C1 2 joints are stable. On physical exam, Ms. Maria demonstrates: The patient states that since her last visit her symptoms have significantly. Today, the patient reports a sharp, shooting cervical pain. She states her shoulders feel numb and that she has tingling in her fingers. Patient also notes decreased cervical range of motion. Patient reports she has had an increase in upper extremity numbness and weakness with the right being worse than the left. Patient states her symptoms worsen when she is lying flat on her back. Patient notes her neck is totally numb in the morning with a pressure sensation. She also reports she is having headaches. Patient is having severe sleep disturbances due to her ongoing pain and symptoms. Her symptoms are exacerbated with any rotation or flexion of her cervical spine. I have explained to the patient that as their condition progresses it will cause further neurological deficits and eventual paralysis. Based on the patients imaging, physical exam, and the rapid progression and disabling nature of their symptoms, at this time I recommend surgery in the form of a: C5-7 Total Disc Replacement. I discussed the risk and benefits of this procedure at length with Ms. Maria. The patient and significant other agreed to considered pursuing the procedure abovementioned. Prior to surgery, she should follow up with her PCP (Cardio, ID, IM etc) for clearance. Questions were invited and answered, and the patient wishes to proceed as outlined below. Currently, I am recommendin.C5-7 Total Disc Replacement Description of Procedure: C5-7 TOTAL DISC REPLACEMENT The patient was seen and examined in the preoperative area. All preoperative protocols were followed. Informed consent was obtained, risks and benefits of the procedure were discussed at length. Risks including bleeding infection damage to the surrounding tissue and risk of reoperation were discussed with the patient. Risk of anesthesia up to and including was discussed with the patient. These are outlined in the risk review. They were willing to accept these risks and all the risks of surgery. The patient was given a weight-based dose of antibiotics in the form of 2 g Ancef. The patient was seen and evaluated by the anesthesia team who deemed them fit for surgery. The site was marked, the patient was willing to proceed with the procedure. The patient was transferred to the operative suite by the Department of anesthesia. They were then drifted off to sleep by the department anesthesia and GETA was performed. The patient tolerated this well. Ayers catheter was placed by nursing staff, a-traumatically. Once confirmation of lines and ventilation the patient was transferred to a Supine Parveen table very carefully. All bony prominences including wrists, elbows, axilla, chest, hips, and thighs, and feet were padded very well. Special attention was paid to the genitalia, and these were padded accordingly. SCDs were placed on bilateral lower extremities and were connected. Arms were well padded and placed at their side thumbs up. Shoulder roll was placed and shoulder were gently taped to table. Once in position, again we confirmed good ventilation capabilities and that lines were running appropriately. The patients Cervical spine was then exposed. 1010s were placed outlining the incision site. Standard alcohol was used to clean the incision site and allowed to dry. C-arm was used to bio-claudine the patient and confirm level for incision which was marked with a skin marker. Operative briefing was performed with all teams and everyone in agreement to proceed. The patient was then prepped and draped in a normal sterile fashion. Timeout was then performed, and all parties agreed with the procedure to be performed. Transverse skin incision was then made on the right side of the patient's neck 3 cm and dissection taken down to the platysma which was split transversely. Sub platysma flap was made, and an interval identified between SCM and medial structures. Omohyoid was visualized and protected. Blunt dissection taken down to the anterior cervical fascia which was identified. Blunt probe was then p laced and lateral image taken which confirmed levels for operation. These levels were then marked with a bovi. Subperiosteal dissection of the longissimus muscles were then done over these levels identifying uncovertebral joints bilaterally. Retractor was then placed deep to these muscles and held in place with a bed arm. [place] pins were placed into C5 and C6 and gentle parallel distraction taken out over the levels. Jose Alejandro rongure used to remove disc material. Operating microscope brought in for visualization. Complete discectomy performed at this level with curette, rongure and pituitary. High speed arik used to remove osteophytes anteriorly and posteriorly until PLL was identified. 6-0 up curette then used to identify the canal and resect the PLL. 2-0 and 3-0 Kerrison used then to remove PLL and disc herniation and performed b/l foraminotomies. Once good decompression was accomplished, meticulous hemostasis was performed. Sizers were then placed under lateral fluoroscopy until the desired height and alignment. A 6 trial was then placed and secured. Distraction removed for cuts. AP and lateral image confirmed central placement. Chisel was then sent over the trial to create the keel cuts. Trial was then removed and gentle distraction placed again. Further clean up of the endplates done as well as foramen and decompression. Disc space was irrigated thoroughly. Final implant was then placed under lateral image to match the keel cuts and was placed optimally on AP and lateral imaging. Once inplace the implant was tested and was secured. Motors run before and after implant placement were stable. The wound bed was irrigated. Distraction pins removed and bone wax placed in their void. Bone wax placed on any bleeding bony surfaces. Surgicel then placed deep in the wound and retractors removed after inspection without injury. Final AP and lateral images confirmed good placement of implant with good height and alignment resotration. Attention was then drawn to the C6-7 level. [place] pins were placed into C6 and C7 and gentle parallel distraction taken out over the levels. Jose Alejandro rongure used to remove disc material. Operating microscope brought in for visualization. Complete discectomy performed at this level with curette, rongure and pituitary. High speed arik used to remove osteophytes anteriorly and posteriorly until PLL was identified. 6-0 up curette then used to identify the canal and resect the PLL. 2-0 and 3-0 Kerrison used then to remove PLL and disc herniation and performed b/l foraminotomies. Once good decompression was accomplished, meticulous hemostasis was performed. Sizers were then placed under lateral fluoroscopy until the desired height and alignment. A 6 trial was then placed and secured. Distraction removed for cuts. AP and lateral image confirmed central placement. Chisel was then sent over the trial to create the keel cuts. Trial was then removed and gentle distraction placed again. Further clean up of the endplates done as well as foramen and decompression. Disc space was irrigated thoroughly. Final implant was then placed under lateral image to match the keel cuts and was placed optimally on AP and lateral imaging. Once inplace the implant was tested and was secured. Motors run before and after implant placement were stable. The wound bed was irrigated. Distraction pins removed and bone wax placed in their void. Bone wax placed on any bleeding bony surfaces. Surgicel then placed deep in the wound and retractors removed after inspection without injury. Final AP and lateral images confirmed good placement of implant with good height and alignment resotration. The wound was then irrigated copiously with NSS. Surgicel placed deep in the wound. Layered closure then performed with 3-0 Vicryl in the platysma and sub- Q tissue. 4-0 Strata fix in the subcuticular tissue. The wound was then cleaned, and dried and skin glue placed. Once glue dried an Opifoam was placed. The patient was then transferred back to their hospital bed a-traumatically. The drain continued to hold suction. They were placed in a soft collar. They were then awakened by the department of anesthesia having tolerated the procedure well without complications.
--- NOTE | 2023-05-08 16:25 | XR ---
EXAMINATION TYPE: XR cervical spine limited, FL guidance operating room Intraoperative/procedural flu oroscopic services were provided. Total fluoroscopy time is 39.8 seconds with a total of 4 submitted images to PACS. Please see the operative/procedural note for further details. DAP: 0.5234 Gycm2
[2023-05-08] MEDS: HYDROcodone/APAP 10-325MG 1 EACH TAB PO PRN ×2 (17:22→23:46)
[2023-05-08] MEDS: ACETAMINOPHEN TAB 325 MG TAB PO SCH ×2 (19:11→23:48)
[2023-05-08 23:04] VITALS: TEMP 98.4
[2023-05-09] MEDS: HYDROcodone/APAP 10-325MG 1 EACH TAB PO PRN ×2 (05:17→11:13)
[2023-05-09] MEDS: ACETAMINOPHEN TAB 325 MG TAB PO SCH ×2 (05:33→11:53)
[2023-05-09] MEDS ORDERED: LEVOTHYROXINE 100 MCG TAB PO SCH (08:00)
[2023-05-09 08:57] VITALS: BP 122/72; PULSE 96; RESP 20
[2023-05-09] MEDS ORDERED: ATORVASTATIN 20 MG TAB PO SCH (09:00)
[2023-05-09 09:22] LABS: Basophils # (A) 0.03 X 10*3/uL (0.00-0.10); Basophils % (A) 0.3 %; Eosinophils % (A) 1.9 %; HCT 38.6 % (37.2-46.3); HGB 13.2 g/dL (12.0-15.0); Lymphocytes # (A) 1.24 X 10*3/uL (0.90-5.00); MCH 32.3 pg (27.0-32.0); MCHC 34.2 g/dL (32.0-37.0); MCV 94.4 FL (80.0-97.0); Monocytes # (A) 0.59 X 10*3/uL (0.20-1.00); Monocytes % (A) 5.7 %; NRBC Per 100 WBC 0 X 10*3/uL (0.00-0.01); Neutrophils # (A) 8.23 X 10*3/uL (1.80-7.70); Neutrophils % (A) 79.8 %; Platelet Count 184 X 10*3/uL (140-440); RBC 4.09 X 10*6/uL (4.10-5.20); RDW 11.8 % (11.5-14.5); WBC 10.32 X 10*3/uL (4.50-10.00)
--- NOTE | 2023-05-09 10:11 | P.PN ---
Subjective Progress Note Date: 05/09/23 Principal diagnosis: Status post C5-C7 disc replacement Patient evaluated at bedside today, she is resting comfortably, she is utilizing a soft collar. She is swallowing with no issues at this time, she does note some mild right-sided pain. Denies headaches, lightheadedness, chest pain or shortness of breath Objective - Vital Signs Vital signs: Vital Signs Temp 98.4 F 05/09/23 07:15 Pulse 96 05/09/23 07:15 Resp 20 05/09/23 10:00 BP 122/72 05/09/23 07:15 Pulse Ox 100 05/09/23 07:15 FiO2 Intake & Output 05/08/23 05/09/23 05/09/23 18:59 06:59 18:59 Intake Total 2049 300 Output Total 275 300 Balance 1775 0 Weight 72.1 kg Intake: IV 2049 Intake, IV Titration 300 Amount Lactated Ringers 1,000 ml 300 @ 20 mls/hr IV .Q24H [facility] Rx#:[id number] Output: Urine 250 300 Estimated Blood Loss 25 Other: Voiding Method Indwelling Catheter Indwelling Catheter - Exam Gen: AOx3, NAD VSS stable at this time Integument: Postop bandages in good position and condition Palpation: No tenderness appreciated with palpation of the cervical spine ROM: Full range of motion in all major muscle groups of the bilateral upper and lower extremities Sensory Exam: Senory exam to light touch is intact C5-T1 Senosry exam to light touch is intact L2-S1 Motor: 4/5 strength appreciated in the bilateral upper extremities with shoulder elevation, shoulder abduction, elbow extension, elbow flexion, wrist extension, wrist flexion, drum cleaner 5/5 strength appreciated in the bilateral lower extremities with hip flexion, knee extension, knee flexion, plantar flexion, dorsiflexion, EHL, FHL Reflexes: 2/4 in all UE and LE - Labs CBC & Chem 7: 05/09/23 06:20 Labs: Abnormal Lab Results - Last 24 Hours (Table) 05/09/23 Range/Units 06:20 WBC 10.32 H (4.50-10.00) X 10*3/uL RBC 4.09 L (4.10-5.20) X 10*6/uL MCH 32.3 H (27.0-32.0) pg Neutrophils # 8.23 H (1.80-7.70) X 10*3/uL Assessment and Plan Assessment: Postoperative day #1 status post cervical disc replacement C5-C7 Plan: Pain control, plan for discharge home on oral medications. We'll also utilize a two-week course of indomethacin Wound care instructions were discussed, list includes showering and bandage changes Activity level instructions were discussed, she will utilize the soft c-collar Stable for discharge to home today Time with Patient: Less than 30
[2023-05-09 10:13] LABS: BUN/Creat Ratio 15.86 Ratio (12.00-20.00); Blood Urea Nitrogen 11.1 mg/dL (9.0-27.0); Calcium 8.7 mg/dL (8.7-10.3); Carbon Dioxide 20.7 mmol/L (21.6-31.8); Chloride 108 mmol/L (96-109); Glucose 87 mg/dL (70-110); Potassium 3.8 mmol/L (3.5-5.5); Sodium 140 mmol/L (135-145)
--- NOTE | 2023-05-09 10:43 | P.CONS ---
History of Present Illness - History of Present Illness This is a pleasant 52 years old female with past medical history of GERD/Reflux, Hyperlipidemia, Thyroid Disorder Patient presents because of spinal disease and possible stenosis of C5-C6 and C6-C7 levels with evidence of radiculopathy with numbness in both upper extremities as per patient, she is status post C5-C6 and C6-C7 total disc replacement by orthopedic team. Today is postop day #1. Patient sitting up in bed comfortable. Woodson collar In place. She is complaining of from some pain at the surgical site. States that she has no weakness in her upper extremities and numbness in both arms are significantly improved and she is very satisfied with the results regarding this she is telling me. He denies any other symptoms, no abdominal pain vomiting diarrhea, no change in urine habits. No fever. She denies smoking or alcohol. showing mild leukocytosis of 10.3, reactive. The rest of BMP and CBC is unremarkable. Vitals are stable patient currently on several pain medications like Dilaudid an [place] per surgery team Review of Systems Review of systems CONSTITUTIONAL: No fever, no malaise, no fatigue. HEENT: No recent visual problems or hearing problems. Denied any sore throat. CARDIOVASCULAR: No orthopnea, PND, no palpitations, no syncope. PULMONARY: No shortness of breath, no cough, no hemoptysis. GASTROINTESTINAL: No diarrhea, no nausea, no vomiting, no abdominal pain. Normoactive bowel sounds. NEUROLOGICAL: No headaches, no weakness, no numbness. HEMATOLOGICAL: Denies any bleeding or petechiae. GENITOURINARY: Denies any burning micturition, frequency, or urgency. MUSCULOSKELETAL/RHEUMATOLOGICAL: Denies any joint pain, swelling, or any muscle pain. ENDOCRINE: Denies any polyuria or polydipsia. 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 History of Any Multi-Drug Resistant Organisms: None Reported Past Surgical History: Appendectomy, Cholecystectomy, Hysterectomy, Joint Replacement Additional Past Surgical History / Comment(s): D&C, vein removal, Left hip replacement Past Anesthesia/Blood Transfusion Reactions: No Reported Reaction Past Psychological History: No Psychological Hx Reported Smoking Status: Former smoker, Never smoker Past Alcohol Use History: None Reported Past Drug Use History: Marijuana - Past Family History Mother Family Medical History: No Reported History Medications and Allergies Home Medications Medication Instructions Recorded Confirmed Type Atorvastatin [Lipitor] 20 mg PO DAILY 05/05/23 05/05/23 History Levothyroxine Sodium [Synthroid] 100 mcg PO DAILY 05/05/23 05/05/23 History Cyclobenzaprine [Flexeril] 10 mg PO HS #21 tab 05/09/23 Rx HYDROcodone/APAP 10-325MG [[place] 1 tab PO Q6HR PRN 7 Days #28 tab 05/09/23 Rx 10-325] RX: Indomethacin [Indocin] 50 mg PO BID 14 Days #28 cap 05/09/23 Rx cefaDROXiL [Duricef] 500 mg PO Q12HR 5 Days #10 cap 05/09/23 Rx Allergies Allergy/AdvReac Type Severity Reaction Status Date / Time gabapentin Allergy Anaphylaxis Verified 05/05/23 10:39 naproxen [From Naprosyn] Allergy Unknown Verified 05/05/23 10:39 Penicillins Allergy Rash/Hives Verified 05/05/23 10:39 pregabalin [From Lyrica] Allergy Anaphylaxis Verified 05/05/23 10:39 Physical Exam Vitals: Vital Signs Temp Pulse Resp BP Pulse Ox 05/09/23 01:20 98.4 F 57 L 18 111/60 97 05/08/23 19:50 98.4 F 61 18 110/73 98 05/08/23 16:45 58 L 16 102/57 100 05/08/23 16:30 55 L 16 111/53 100 05/08/23 16:15 58 L 16 109/56 100 05/08/23 16:00 97.5 F L 94 14 106/54 100 Intake and Output 05/08/23 05/08/23 05/09/23 14:59 22:59 06:59 Intake Total 1850 500 Output Total 275 300 Balance 1850 225 -300 Intake: IV 1850 200 Intake, IV Titration 300 Amount Lactated Ringers 1,000 ml 300 @ 20 mls/hr IV .Q24H [facility] Rx#:[id number] Output: Urine 250 300 Estimated Blood Loss 25 Other: Voiding Method Indwelling Catheter Weight 72.1 kg 72.1 kg GENERAL: The patient is alert and oriented x3, not in any acute distress. Well developed, well nourished. -HEENT: Pupils are round and equally reacting to light. EOMI. No scleral icterus. No conjunctival pallor. Normocephalic, atraumatic. No pharyngeal erythema. No thyromegaly. surgical wound of the neck with dressing in place and hard collar on place CARDIOVASCULAR: S1 and S2 present. No murmurs, rubs, or gallops. PULMONARY: Chest is clear to auscultation, no wheezing , no crackles. ABDOMEN: Soft, nontender, nondistended, normoactive bowel sounds. No palpable organomegaly. MUSCULOSKELETAL: No joint swelling or deformity. EXTREMITIES: No cyanosis, clubbing, or pedal edema. NEUROLOGICAL: Gross neurological examination did not reveal any focal deficits. SKIN: No rashes. no petechiae. Results CBC & Chem 7: 05/09/23 06:20 05/09/23 06:20 Assessment and Plan Assessment: Degenerative disc disease with evidence of encroachment on the nerves and pos sible spinal stenosis of C5-C6 and C6-C7 status post total disc replacement at the same disc areas. Numbness in both upper extremity secondary to above, improved Hypothyroidism Hyperlipidemia Mild leukocytosis, mostly reactive Plan: Continue with hard collar as per orthopedic team Orthopedic primary team are following closely Resume levothyroxine Continue with statin pain Mx As per surgery primary team DVT prophylaxis for surgery team GI prophylaxis We recommend patient follow up with PCP in one week after discharge Thank you for consulting us.
[2023-05-09] MEDS: LACTATED RINGERS 1,000 ML IV SCH (11:54)
--- NOTE | 2023-05-10 10:22 | P.DS ---
Providers Date of admission: 05/08/2023 Expected date of discharge: 05/09/23 Attending physician: Alexandre Sibley DO Consults: 05/08/23 16:49 Consult Physician Routine Consulting Provider: Lisbeth Lindquist Consult Reason/Comments: medical managment Do you want consulting provider notified?: Yes Primary care physician: Saundra Kulkarni Hospital Course: Date of admission: 05/08/2023 Date of discharge: 05/09/2023 Admission diagnosis: Status post C5-C7 disc replacement Discharge diagnosis: Same Attending physician: Dr. Sibley Surgical procedures: C5C7 disc replacement Brief history: Patient is a 52-year-old female with a history of significant spondylosis throughout the C5-C7 cervical spine with moderate spinal canal and neural foraminal canal stenosis. At this point patient has failed conservative treatment measures and has opted to proceed with a elective C5-C7 disc replacement. Hospital course: Details of patient's surgery can be found in operative report. Patient tolerated the procedure well and was subsequently transported to orthopedic floor. Patient's orthopeidc and medical care was provided daily. Patient had daily laboratory tests performed for evaluation of overall blood counts. Patient had daily physical therapy to include strengthening range of motion as well as education with walker ambulation. Patient was treated with delma hose/compression stockings for their postoperative DVT prophylaxis during their inpatient stay. Patient was noted to have a relatively uneventful postoperative course. Patient reported satisfactory pain control with oral pain medications by postoperative day 0. Patient showed satisfactory progress with physical therapy. Patient moved steadily through the program and had no difficulty meeting the goals by postoperative day 1. Given patient's otherwise satisfactory course and having met physical therapy goals, plan is to discharge patient home on postoperative day 1. Discharge condition/disposition: Patient will be discharged home in stable condition. Discharge medications: Instructions are given on resumption of patient's normal daily medications per primary care recommendation, in addition patient will be prescribed Orchard 10 mg/325 mg, Duricef 500 mg, indomethacin 50mg, Flexeril 10mg. Spine Discharge and Recovery Instructions Dressing: Leave your dressing in place for a total of 5 days post operatively. Then you may remove your dressing and leave open to air. Keep the area clean and if not able to keep area clean, then cover with sterile gauze and tape. Showering: You may shower 3 days after your procedure allowing soap and water to run over incision. Do not scrub. Do not soak. Blot dry. Follow up: Please confirm a follow up appointment with your surgeon 3 weeks post operatively. Please make an appointment to follow up with your PCP in 1-2 weeks after surgery for evaluation 3 phase, 3-week plan POST OP WEEKS 1-3 1. Lifting/carrying/pushing/pulling limited to less than 5 pounds. 2. Do not sit for longer than 15 minutes at one time. Get up and walk around. Prolonged sitting is NOT advised. If you lay down, see if you can sahra erate laying down on you front (belly side) 3. Walk for periods of 15 minutes = 1 mile but no longer; do it multiple times times each day. 4. Ice your low back after activity. POST OP WEEKS 3-6 1. Lifting limited to less than 20 pounds. 2. Do not sit for longer than 30 minutes at a time. Frequently change positions. Use a sit-to stand workstation or take frequent breaks from sitting if you have returned to work. 3. Walk for 30 minutes each day. If possible, do these three or more times a day POST OP WEEKS 6+ At your 6-week appointment we will give you a physical therapy referral to focus on a core stabilization and strengthening program. You should also work on leg & buttock strengthening, hamstring & quadriceps stretching, and continue a low impact aerobic activity program such as swimming, walking, or riding a stationary bicycle. During the initial 6 weeks after your surgery, you are at the highest risk of re-injuring your spine. You should generally avoid BLTs (bending, lifting and twisting combination motions) and follow the above guidelines to reduce the chance of reinjury. You can anticipate post op appointments in our office at approximately 3 weeks and 6 weeks after your surgery. INCISION CARE: If your incision is not draining you do NOT need to cover it with a dressing. Keep your incision clean, dry and intact. In most cases, we apply skin glue, piryanka or sutures to the incision at the time of surgery. This will be like a crust or have the appearance of a scab and will fall off in time on its own. The stitches or priyanka need to be removed at 3 weeks post op appointment. You may begin to shower 3 days after surgery (this allows the glue to wild well). However, please avoid scrubbing the incision site or peeling off any of the skin glue. This will ensure optimal healing of your incision. Also, during this time avoid soaking the incision area in water - this includes swimming pools, hot tubs or baths. No ointments, lotions or oils on the incision until your surgeon allows. Leave priyanka, sutures or glue in place. Neurological dysfunction that comes on suddenly can also be a sign of a stroke. Below some common symptoms of a stroke are listed: B - balance difficulty such as sudden onset walking or leaning to one side - NEW E - eye problem such as sudden double vision or trouble seeing on one side - NEW F - Facial weakness or numbness on one side - NEW A - Arm or leg weakness or numbness on one side - NEW S - Slurred speech or difficulty with word finding - NEW T - Time is BRAIN! Call 911 as soon as you recognize these symptoms Diet: Consume a regular diet rich in vegetables and lean protein such as chicken or fish. You should consume in a ratio of approximately 20% fats|40% carbohydrates|40%protein. Vegetables, sweet potatoes, brown rice or quinoa are examples of good carbohydrates. Chips, white bread, cookies and sweets/sugar are examples of bad carbohydrates. Limit your bad carbs, go wild with good carbs. "Life's Simple 7" Guidelines as per [place] [employer] These will help you reclaim your life after surgery and cellulose insulation helper in your recovery, keeping in mind your restrictions. (1) Get Active. Physical activity can help people lose weight, control high blood pressure and cholesterol, feel emotionally better, and sleep better. (2) Control Cholesterol. Avoid a diet high in saturated fat, trans fat, & cholesterol. Limit whole milk & cream, ice cream, butter, egg yolks, processed meats (like sausage and hot dogs), and fatty meats. Choose healthy foods that are low in saturated fat, trans fat and cholesterol which include: Fruits and vegetables, fiber rich grain products (like whole grain pasta and brown rice), lean meat such as chicken, fish, nuts, seeds, and legumes. (3) Eat Better. Eat small portions. Shop at the grocery with a list and do not stray from it. Tips for a healthy diet include: Limit sodium intake to less than 1500mg daily, avoid prepackaged, processed, and fast foods, choose a diet rich in fruits, vegetables, and whole grain, high fiber foods, and limit saturated & cholesterol in your diet. (4) Manage Blood Pressure. If you have high blood pressure, you should have a cuff at home so that you can check your blood pressure regularly. Be sure you have a good cuff. An arm one is generally better than a wrist one. Bring the cuff to a doctor's appointment to validate that the measurements that your cuff are taking are accurate. Take your blood pressure twice daily when you are sitting down and relaxing. Record the numbers in a log and bring this log with you to your doctors' appointments. (5) Lose Weight if your BMI is above 25. A healthy BMI is between 19-25. To calculate Your BMI, you may use a Standard BMI Calculator on the NIH BMI website: <www.nhlbi.nih.gov/guidelines/obesity/BMI/bmicalc.htm>. Weigh oneself daily. If you are overweight, set a goal to lose weight. A pound a week loss if needed is a good target. (6) Reduce Blood Sugar. Limit foods and liquids with "added sugars." (Added sugars include sucrose, fructose, glucose, maltose, dextrose, high fructose corn syrup, corn syrup, concentrated fruit juice and honey). (7) Stop Smoking. If you smoke, quitting smoking is one of the best things that you can do for your health. Smoking increases your risk of heart attack, stroke, and peripheral vascular disease, which is a build-up of plaque in your arteries. Please discard all the cigarettes and lighters in your house. Have a plan for what you will do when you have the urge to smoke. Direct and second- hand smoke shortens your life as well as the lives of your family, friends and others around you. For your health and the health of those around you, please consider quitting! Proper Bending Body Mechanics: Maintain a wide stance with one foot slightly in front of the other. Keep your back straight. Bend utilizing the strength in your hips and knees. Do not bend at the waist. Maintain the lifted object at your waist-level close to your body. Avoid lifting weight that causes immediately pain or pain anywhere in the body afterwards. Smoking/Nicotine If there was ever one thing that you could do to increase your overall health, decrease your risk of cardiovascular problems by about 39% the second you make the choice, it is to STOP SMOKING. Your body's most instant gratification is the second you stop smoking. We have all heard the studies, read the articles but it is true, smoking is extremely bad for your overall health, and moreover it is detrimental to your bone health. Nicotine, IN ANY FORM, kills bone cells, prevents your body from healing fractures, and significantly prolongs healing after surgery. In spine surgery specifically, it increases your risk of not healing your bones to create a fusion and increases your risk of having a revision surgery due to this up to 60%. I know it is hard. I know it feels impossible. But there are ways. Take control of your life. We are here to help you through it. And when you are ready, ask us and we can direct you to help if you desire. Use the START Plan to Quit Smoking (please visit the Helpguide.org website listed below for more information): S = Set a quit date. Choose a date within the next 2 weeks, so you have enough time to prepare without losing your motivation to quit. If you mainly smoke at work, quit on the weekend, so you have a few days to adjust to the change. T = Tell family, friends, and co-workers that you plan to quit. Let your friends and family in on your plan to quit smoking and tell them you need their support and encouragement to stop. Look for a quit lizy who wants to stop smoking as well. You can help each other get through the rough times. A = Anticipate and plan for the challenges you'll face while quitting. Most people who begin smoking again do so within the first 3 months. You can help yourself make it through by preparing ahead for common challenges, such as nicotine withdrawal and cigarette cravings. R = Remove cigarettes and other tobacco products from your home, car, and work. Throw away all your cigarettes (no emergency pack!), lighters, ashtrays, and matches. Wash your clothes and freshen up anything that smells like smoke. Shampoo your car, clean your drapes and carpet, and steam your furniture. T = Talk to your doctor about getting help to quit. Your doctor can prescribe medication to help with withdrawal and suggest other alternatives. If you can't see a doctor, you can get many products over the counter at your local pharmacy or grocery store, including the nicotine patch, nicotine lozenges, and nicotine gum. Resources for Quitting Smoking: <https://www.[place].gov /documents/[facility]/Quit_Tobacco_Resources_for_patients_313480_7.pdf> Supplementation: Take recommended dosages of Vitamin D and Calcium to help fortify your bones and help them to heal. See your health maintenance packet for dosages and recommended levels. DVT/VTE prophylaxis: You will be given compression stockings from the hospital. Wear these daily for the first two weeks after surgery. You may take them off at night. You may be prescribed a medication to help thin your blood. Take this as directed. If you are not prescribed this medication, early and frequent ambulation has been shown to be the best prophylaxis to deep vein thrombosis and sequelae related to this event. Procedures: C5-C7 total disc replacement Patient Condition at Discharge: Good Plan - Discharge Summary Discharge Rx Participant: No New Discharge Prescriptions: New cefaDROXiL [Duricef] 500 mg PO Q12HR 5 Days #10 cap Cyclobenzaprine [Flexeril] 10 mg PO HS #21 tab Indomethacin [Indocin] 50 mg PO BID 14 Days #28 cap HYDROcodone/APAP 10-325MG [Orchard 10-325] 1 tab PO Q6HR PRN 7 Days #28 tab PRN Reason: Pain No Action Levothyroxine Sodium [Synthroid] 100 mcg PO DAILY Atorvastatin [Lipitor] 20 mg PO DAILY Discharge Medication List Atorvastatin [Lipitor] 20 mg PO DAILY 05/05/23 [History] Levothyroxine Sodium [Synthroid] 100 mcg PO DAILY 05/05/23 [History] Cyclobenzaprine [Flexeril] 10 mg PO HS #21 tab 05/09/23 [Rx] HYDROcodone/APAP 10-325MG [Orchard 10-325] 1 tab PO Q6HR PRN 7 Days #28 tab 05/09/23 [Rx] Indomethacin [Indocin] 50 mg PO BID 14 Days #28 cap 05/09/23 [Rx] cefaDROXiL [Duricef] 500 mg PO Q12HR 5 Days #10 cap 05/09/23 [Rx] Follow up Appointment(s)/Referral(s): Alexandre Sibley DO [Doctor of Osteopathic Medicine] - 2 Weeks (Office is closed at time of dicharge. Please call for follow-up appointment.) Saundra Kulkarni MD [Primary Care Provider] - 1 Week (Office is closed at time of discharge. Please call for follow-up appointment.) Activity/Diet/Wound Care/Special Instructions: Spine Discharge and Recovery Instructions Date of Surgery: 05/08/2023 Diagnosis: Cervical radiculopathy; upper extremity weakness Procedure: C5-C7 total disc replacement Medications: See medication list All medication refills should be obtained through your primary care doctor or your clinic spine surgeon. Please discuss prescription refills at your follow up appointment. Do not call the hospital for medication refills. Dressing: Leave your dressing in place for a total of 5 days post operatively. Then you may remove your dressing and leave open to air. Keep the area clean and if not able to keep area clean, then cover with sterile gauze and tape. Showering: You may shower 3 days after your procedure allowing soap and water to run over incision. Do not scrub. Do not soak. Blot dry. Follow up: Please confirm a follow up appointment with your surgeon 3 weeks post operatively. Please make an appointment to follow up with your PCP in 1-2 weeks after surgery for evaluation 3 phase, 3-week plan POST OP WEEKS 1-3 1. Lifting/carrying/pushing/pulling limited to less than 5 pounds. 2. Do not sit for longer than 15 minutes at one time. Get up and walk around. Prolonged sitting is NOT advised. If you lay down, see if you can tolerate laying down on you front (belly side) 3. Walk for periods of 15 minutes = 1 mile but no longer; do it multiple times times each day. 4. Ice your low back after activity. POST OP WEEKS 3-6 1. Lifting limited to less than 20 pounds. 2. Do not sit for longer than 30 minutes at a time. Frequently change positions. Use a sit-to stand workstation or take frequent breaks from sitting if you have returned to work. 3. Walk for 30 minutes each day. If possible, do these three or more times a day POST OP WEEKS 6+ At your 6-week appointment we will give you a physical therapy referral to focus on a core stabilization and strengthening program. You should also work on leg & buttock strengthening, hamstring & quadriceps stretching, and continue a low impact aerobic activity program such as swimming, walking, or riding a stationary bicycle. During the initial 6 weeks after your surgery, you are at the highest risk of re-injuring your spine. You should generally avoid BLTs (bending, lifting and twisting combination motions) and follow the above guidelines to reduce the chance of reinjury. You can anticipate post op appointments in our office at approximately 3 weeks and 6 weeks after your surgery. INCISION CARE: If your incision is not draining you do NOT need to cover it with a dressing. Keep your incision clean, dry and intact. In most cases, we apply skin glue, priyanka or sutures to the incision at the time of surgery. This will be like a crust or have the appearance of a scab and will fall off in time on its own. The stitches or priyanka need to be removed at 3 weeks post op appointment. You may begin to shower 3 days after surgery (this allows the glue to wild well). However, please avoid scrubbing the incision site or peeling off any of the skin glue. This will ensure optimal healing of your incision. Also, during this time avoid soaking the incision area in water - this includes swimming pools, hot tubs or baths. No ointments, lotions or oils on the incision until your surgeon allows. Leave priyanka, sutures or glue in place. Neurological dysfunction that comes on suddenly can also be a sign of a stroke. Below some common symptoms of a stroke are listed: B - balance difficulty such as sudden onset walking or leaning to one side - NEW E - eye problem such as sudden double vision or trouble seeing on one side - NEW F - Facial weakness or numbness on one side - NEW A - Arm or leg weakness or numbness on one side - NEW S - Slurred speech or difficulty with word finding - NEW T - Time is BRAIN! Call 911 as soon as you recognize these symptoms Diet: Consume a regular diet rich in vegetables and lean protein such as chicken or fish. You should consume in a ratio of approximately 20% fats|40% carbohydrates|40%protein. Vegetables, sweet potatoes, brown rice or quinoa are examples of good carbohydrates. Chips, white bread, cookies and sweets/sugar are examples of bad carbohydrates. Limit your bad carbs, go wild with good carbs. "Life's Simple 7" Guidelines as per [place] [employer] These will help you reclaim your life after surgery and cellulose insulation helper in your recovery, keeping in mind your restrictions. (1) Get Active. Physical activity can help people lose weight, control high blood pressure and cholesterol, feel emotionally better, and sleep better. (2) Control Cholesterol. Avoid a diet high in saturated fat, trans fat, & cholesterol. Limit whole milk & cream, ice cream, butter, egg yolks, processed meats (like sausage and hot dogs), and fatty meats. Choose healthy foods that are low in saturated fat, trans fat and cholesterol which include: Fruits and vegetables, fiber rich grain products (like whole grain pasta and brown rice), lean meat such as chicken, fish, nuts, seeds, and legumes. (3) Eat Better. Eat small portions. Shop at the grocery with a list and do not stray from it. Tips for a healthy diet include: Limit sodium intake to less than 1500mg daily, avoid prepackaged, processed, and fast foods, choose a diet rich in fruits, vegetables, and whole grain, high fiber foods, and limit saturated & cholesterol in your diet. (4) Manage Blood Pressure. If you have high blood pressure, you should have a cuff at home so that you can check your blood pressure regularly. Be sure you have a good cuff. An arm one is generally better than a wrist one. Bring the cuff to a doctor's appointment to validate that the measurements that your cuff are taking are accurate. Take your blood pressure twice daily when you are sitting down and relaxing. Record the numbers in a log and bring this log with you to your doctors' appointments. (5) Lose Weight if your BMI is above 25. A healthy BMI is between 19-25. To calculate Your BMI, you may use a Standard BMI Calculator on the NIH BMI website: <www.nhlbi.nih.gov/guidelines/obesity/BMI/bmicalc.htm>. Weigh oneself daily. If you are overweight, set a goal to lose weight. A pound a week loss if needed is a good target. (6) Reduce Blood Sugar. Limit foods and liquids with "added sugars." (Added sugars include sucrose, fructose, glucose, maltose, dextrose, high fructose corn syrup, corn syrup, concentrated fruit juice and honey). (7) Stop Smoking. If you smoke, quitting smoking is one of the best things that you can do for your health. Smoking increases your risk of heart attack, stroke, and peripheral vascular disease, which is a build-up of plaque in your arteries. Please discard all the cigarettes and lighters in your house. Have a plan for what you will do when you have the urge to smoke. Direct and second- hand smoke shortens your life as well as the lives of your family, friends and others around you. For your health and the health of those around you, please consider quitting! Proper Bending Body Mechanics: Maintain a wide stance with one foot slightly in front of the other. Keep your back straight. Bend utilizing the strength in your hips and knees. Do not bend at the waist. Maintain the lifted object at your waist-level close to your body. Avoid lifting weight that causes immediately pain or pain anywhere in the body afterwards. Smoking/Nicotine If there was ever one thing that you could do to increase your overall health, decrease your risk of cardiovascular problems by about 39% the second you make the choice, it is to STOP SMOKING. Your body's most instant gratification is the second you stop smoking. We have all heard the studies, read the articles but it is true, smoking is extremely bad for your overall health, and moreover it is detrimental to your bone health. Nicotine, IN ANY FORM, kills bone cells, prevents your body from healing fractures, and significantly prolongs healing after surgery. In spine surgery specifically, it increases your risk of not healing your bones to create a fusion and increases your risk of having a revision surgery due to this up to 60%. I know it is hard. I know it feels impossible. But there are ways. Take control of your life. We are here to help you through it. And when you are ready, ask us and we can direct you to help if you desire. Use the START Plan to Quit Smoking (please visit the Helpguide.org website listed below for more information): S = Set a quit date. Choose a date within the next 2 weeks, so you have enough time to prepare without losing your motivation to quit. If you mainly smoke at work, quit on the weekend, so you have a few days to adjust to the change. T = Tell family, friends, and co-workers that you plan to quit. Let your friends and family in on your plan to quit smoking and tell them you need their support and encouragement to stop. Look for a quit lizy who wants to stop smoking as well. You can help each other get through the rough times. A = Anticipate and plan for the challenges you'll face while quitting. Most people who begin smoking again do so within the first 3 months. You can help yourself make it through by preparing ahead for common challenges, such as nicotine withdrawal and cigarette cravings. R = Remove cigarettes and other tobacco products from your home, car, and work. Throw away all your cigarettes (no emergency pack!), lighters, ashtrays, and matches. Wash your clothes and freshen up anything that smells like smoke. Shampoo your car, clean your drapes and carpet, and steam your furniture. T = Talk to your doctor about getting help to quit. Your doctor can prescribe medication to help with withdrawal and suggest other alternatives. If you can't see a doctor, you can get many products over the counter at your local pharmacy or grocery store, including the nicotine patch, nicotine lozenges, and nicotine gum. Resources for Quitting Smoking: <https://www.[place].gov/documents/[facility]/Quit_Tobacco_Resources_f or_patients_313480_7.pdf> Supplementation: Take recommended dosages of Vitamin D and Calcium to help fortify your bones and help them to heal. See your health maintenance packet for dosages and recommended levels. DVT/VTE prophylaxis: You will be given compression stockings from the hospital. Wear these daily for the first two weeks after surgery. You may take them off at night. You may be prescribed a medication to help thin your blood. Take this as directed. If you are not prescribed this medication, early and frequent ambulation has been shown to be the best prophylaxis to deep vein thrombosis and sequelae related to this event. Discharge Disposition: HOME SELF-CARE
== END 2023-05-09 13:02 | disposition home or self-care (01) ==
LOC: OR 11:45 → 4SSUR 16:00 → OR 05-09 13:02
PROVIDERS: ATTEND Orthopaedic Surgery
DX: M50.123 Cervical disc disorder at C6-C7 level with radiculopathy (principal); G89.18 Other acute postprocedural pain; M47.26 Other spondylosis with radiculopathy, lumbar region; K21.9 Gastro-esophageal reflux disease without esophagitis; E78.5 Hyperlipidemia, unspecified; Z90.710 Acquired absence of both cervix and uterus; Z90.49 Acquired absence of other specified parts of digestive tract; Z96.642 Presence of left artificial hip joint; Z79.890 Hormone replacement therapy; Z88.6 Allergy status to analgesic agent; Z88.0 Allergy status to penicillin; Z79.899 Other long term (current) drug therapy
CPT/HCPCS: 97162; 80048; 85025; 72040; 22856; 22858; J0690; J2405

== ENCOUNTER 2023-06-05 20:48 | Emergency (ER) | payer OTHER ==
[2023-06-05 21:22] VITALS: TEMP 97.9
--- NOTE | 2023-06-05 22:19 | ED ---
General Adult HPI - General Chief complaint: Fall Stated complaint: Fall Time Seen by Provider: 06/05/23 21:55 Source: patient, RN notes reviewed, old records reviewed Mode of arrival: ambulatory Limitations: no limitations - History of Present Illness Initial comments: Patient is a 52-year-old female presents with the department after a fall at home. She is not on blood thinners. Had recent cervical spine surgery by Dr. Sibley 4 weeks ago. Patient fell from standing and landed on the left side of her body. Has a small superficial laceration that is not gaping over the left eyebrow. No bleeding. Patient also struck her knee and ankle however has no pain and has been ambulating on it. Denies any significant neck pain or headache. Denies any blurry vision. Denies any face pain. Mostly concerned regarding her neck and is requesting imaging to check on it as she is only 4 weeks out from surgery. Denies any change in pain. Presents for further evaluation at this time. Did not lose consciousness. - Related Data Home Medications Medication Instructions Recorded Confirmed Atorvastatin [Lipitor] 20 mg PO DAILY 05/05/23 05/05/23 Levothyroxine Sodium [Synthroid] 100 mcg PO DAILY 05/05/23 05/05/23 Previous Rx's Medication Instructions Recorded Cyclobenzaprine [Flexeril] 10 mg PO HS #21 tab 05/09/23 HYDROcodone/APAP 10-325MG [[place] 1 tab PO Q6HR PRN 7 Days #28 tab 05/09/23 10-325] Indomethacin [Indocin] 50 mg PO BID 14 Days #28 cap 05/09/23 cefaDROXiL [Duricef] 500 mg PO Q12HR 5 Days #10 cap 05/09/23 Allergies Allergy/AdvReac Type Severity Reaction Status Date / Time gabapentin Allergy Anaphylaxis Verified 06/05/23 21:15 naproxen [From Naprosyn] Allergy Unknown Verified 06/05/23 21:15 Penicillins Allergy Rash/Hives Verified 06/05/23 21:15 pregabalin [From Lyrica] Allergy Anaphylaxis Verified 06/05/23 21:15 Review of Systems ROS Statement: Those systems with pertinent positive or pertinent negative responses have been documented in the HPI. Review of Systems: CONST: Denies fever EYES: Denies blurry vision ENT: Denies nasal congestion C/V: Denies Chest pain RESP: Denies shortness of breath GI: Denies abdominal pain : Denies dysuria SKIN: Endorses superficial lacerations. MSK: Denies joint pain. NEURO: Denies headache ROS Other: All systems not noted in ROS Statement are negative. 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 History of Any Multi-Drug Resistant Organisms: None Reported Past Surgical History: Appendectomy, Cholecystectomy, Hysterectomy, Joint Replacement Additional Past Surgical History / Comment(s): D&C, vein removal, Left hip replacement Past Anesthesia/Blood Transfusion Reactions: No Reported Reaction Past Psychological History: No Psychological Hx Reported Smoking Status: Former smoker, Never smoker Past Alcohol Use History: None Reported Past Drug Use History: Marijuana - Past Family History Mother Family Medical History: No Reported History General Exam - General Exam Comments Initial Comments: General: Appears in no acute distress. HEAD: Negative robledo sign. Negative raccoon eyes. Small abrasion/superficial laceration above the left eyebrow that is not gaping and not bleeding. EYES: PERRLA, EOMI, conjunctiva normal, no discharge. Pupils are 3 mm equal bilaterally. ENT: Hearing grossly intact, normal oropharynx. RESPIRATORY: Clear breath sounds bilaterally. No wheezes, rales, or rhonchi. C/V: Regular rate and rhythm. S1 and S2 auscultated, no edema, peripheral pulses 2+ and intact throughout ABD: Abd is soft, nontender, nondistended EXT: Normal range of motion, no obvious deformity. Pelvis stable. No midline spinal tenderness to palpation. SKIN: Superficial abrasion above the left eyebrow. NEURO: Alert and oriented x 4. Cranial nerves II-XII intact. No focal sensory or strength deficits. GCS of 15. Limitations: no limitations Course Vital Signs 06/05/23 06/05/23 21:10 23:55 Temperature 97.9 F Pulse Rate 66 69 Respiratory 22 16 Rate Blood Pressure 107/62 108/73 O2 Sat by Pulse 97 97 Oximetry Medical Decision Making - Medical Decision Making Was pt. sent in by a medical professional or institution (, PA, RESIDENTIAL PROGRAM COORDINATOR, urgent care, hospital, or alf...) When possible be specific @ -No Did you speak to anyone other than the patient for history (EMS, parent, family, police, friend...)? What history was obtained from this source @ -No Did you review nursing and triage notes (agree or disagree)? Why? @ -I reviewed and agree with nursing and triage notes Were old charts reviewed (outside hosp., previous admission, EMS record, old EKG, old radiological studies, urgent care reports/EKG's, alf records)? Report findings @ -No old charts were reviewed Differential Diagnosis (chest pain, altered mental status, abdominal pain women, abdominal pain men, vaginal bleeding, weakness, fever, dyspnea, syncope, headach e, dizziness, GI bleed, back pain, seizure, CVA, palpatations, mental health, musculoskeletal)? @ -Differential Musculoskeletal Muscular strain, contusion, ligament sprain, fracture, arthritis, septic arthritis, bursitis, cellulitis, muscle spasm, nerve compression, DVT, arterial occlusion, herpes zoster, electrolyte abnormality, tumor.... This is not meant to be in all inclusive list EKG interpreted by me (3pts min.). @ -None done X-rays interpreted by me (1pt min.). @ -None done CT interpreted by me (1pt min.). @ -CT imaging reveals no obvious acute traumatic injury. No acute intracranial process or injury. U/S interpreted by me (1pt. min.). @ -None done What testing was considered but not performed or refused? (CT, X-rays, U/S, labs)? Why? @ -None What meds were considered but not given or refused? Why? @ -None Did you discuss the management of the patient with other professionals (professionals i.e. , PA, RESIDENTIAL PROGRAM COORDINATOR, lab, RT, psych nurse, oncology social worker, radiographer cardiac catheterization, teacher, operations officer, telephonic nurse case manager)? Give summary @ -No Was smoking cessation discussed for >3mins.? @ -No Was critical care preformed (if so, how long)? @ -No Were there social determinants of health that impacted care today? How? (Homeles sness, low income, unemployed, alcoholism, drug addiction, transportation, low edu. Level, literacy, decrease access to med. care, [facility], rehab)? @ -No Was there de-escalation of care discussed even if they declined (Discuss DNR or withdrawal of care, Hospice)? DNR status @ -No What co-morbidities impacted this encounter? (DM, HTN, Smoking, COPD, CAD, Cancer, CVA, ARF, Chemo, Hep., AIDS, mental health diagnosis, sleep apnea, morbid obesity)? @ -None Was patient admitted / discharged? Hospital course, mention meds given and route, prescriptions, significant lab abnormalities, going to OR and other pertinent info. @ -Based on the patient's presentation and physical exam, presents for reevaluation of her neck after a fall at home. His no CVA complaints. Does have a mild abrasion/laceration to the left forehead that is not gaping and does not require stitches. I did offer skin glue which was declined at this time. It is not bleeding. Very superficial. However with the recent cervical spine surgery in the fall I did recommend CT imaging the brain and C-spine which she accepted. Vital signs are within acceptable limits. She defines any analgesic medications. Patient presents for further evaluation. CT imaging negative for any obvious traumatic injury or intracranial injury. I discussed results the patient she'll be discharged home at this time. She was in agreement this plan. She will follow up with her surgeon next week. I instructed the patient to follow up with their PCP in the next 1-3 days. I explained that the patient should return to the emergency department if they experience any worsening symptoms. Strict return precautions were discussed with the patient. The patient expressed understanding of these instructions. I answered all questions that the patient had. The patient was discharged home in good condition with their prescriptions and follow up information. Undiagnosed new problem with uncertain prognosis? @ -No Drug Therapy requiring intensive monitoring for toxicity (Heparin, Nitro, Insulin, Cardizem)? @ -No Were any procedures done? @ -No Diagnosis/symptom? @ -Fall, abrasion Acute, or Chronic, or Acute on Chronic? @ -Acute Uncomplicated (without systemic symptoms) or Complicated (systemic symptoms)? @ -Uncomplicated Side effects of treatment? @ -none Exacerbation, Progression, or Severe Exacerbation] @ -no Poses a threat to life or bodily function? @ -no Disposition Clinical Impression: Fall, Abrasion Disposition: HOME SELF-CARE Condition: Good Instructions (If sedation given, give patient instructions): Abrasion (ED), Fall Prevention (ED) Is patient prescribed a controlled substance at d/c from ED?: No Referrals: Saundra Kulkarni MD [Primary Care Provider] - 1-2 days Time of Disposition: 23:46
--- NOTE | 2023-06-05 23:48 | CT ---
EXAMINATION TYPE: CT brain cspine wo con DATE OF EXAM: 06/05/2023 COMPARISON: CT cervical spine March 25, 2023. CT brain March 31, 2022. HISTORY: fall, recent C-spine surgery CT DLP: 1287.5 mGycm. Automated Exposure Control for Dose Reduction was Utilized. TECHNIQUE: CT scan of the head and cervical spine are performed without contrast. FINDINGS: There is no acute intracranial hemorrhage, mass effect, or midline shift identified. The ventricles and sulci are within normal limits in size. Pedroza-white matter differentiation is maintain ed. The calvarium is intact. The globes are intact and the visualized sinuses are clear. Cervical spine is visualized in its entirety from C1 through upper thoracic levels and demonstrates s table and satisfactory alignment without evidence of acute fracture or dislocation. Prevertebral sof t tissue appears within normal limits. The C1-C2 articulation is within normal limits on the coronal images. There is new surgical change at the C5-C6 and C6-C7 endplates. Vertebral body heights and d isc space heights remain satisfactory above and below surgical levels. Spinal canal is grossly preser ayad. Lung apices are clear without pneumothorax. Some mild emphysematous changes are redemonstrated. IMPRESSION: 1. There is no acute fracture or dislocation evident in the cervical spine. 2. No acute intracranial hemorrhage or midline shift is seen.
[2023-06-06 00:13] VITALS: BP 108/73; PULSE 69; RESP 16
== END 2023-06-06 | disposition home or self-care (01) ==
LOC: EC 20:48
DX: S01.112A Laceration without foreign body of left eyelid and periocular area, initial encounter (principal); E78.5 Hyperlipidemia, unspecified; E07.9 Disorder of thyroid, unspecified; Z79.890 Hormone replacement therapy; Z79.899 Other long term (current) drug therapy; Z87.891 Personal history of nicotine dependence; Z88.0 Allergy status to penicillin; Z88.8 Allergy status to other drugs, medicaments and biological substances; Z88.6 Allergy status to analgesic agent; X58.XXXA Exposure to other specified factors, initial encounter
CPT/HCPCS: 70450; 72125; 99284

== ENCOUNTER → 2023-07-03 | Outpatient (CLI) | payer OTHER ==
[2023-07-03 15:14] LABS: T4, Free (Free Thyroxine) 1.92 ng/dL (0.80-1.80)
== END | disposition home or self-care (01) ==
LOC: LABWHC1 08:48
PROVIDERS: ATTEND Internal Medicine Endocrinology, Diabetes & Metabolism
DX: E04.2 Nontoxic multinodular goiter (principal); E03.8 Other specified hypothyroidism
CPT/HCPCS: 36415; 84439; 84443

== ENCOUNTER → 2023-09-30 | Outpatient (CLI) | payer OTHER ==
--- NOTE | 2023-09-30 14:52 | US ---
EXAMINATION TYPE: US thyroid st tissue head/neck DATE OF EXAM: 09/30/2023 COMPARISON: 03/25/23 CLINICAL INDICATION: Female, 53 years old with history of E042 NONTOXIC GOITER; GLAND SIZE: Right Lobe: 3.6 x 1.5 x 0.8 cm Overall Parenchyma: heterogeneous Left Lobe: 3.2 x 1.5 x 1.0 cm Overall Parenchyma: heterogeneous Isthmus Thickness: 0.27 cm NODULES RIGHT: # of nodules measured on right: 1 1. 0.9 X 0.6 x 0.7 cm, lower lateral, solid or almost completely solid, hypoechoic nodule, which is wider than tall, with smooth margins, without echogenic foci. TR 4. Marginal increase in size from p rior exam. Prior size: 0.9 x 0.4 x 0.5 cm LEFT: # of nodules measured on left: 1 1. 0.4 X 0.3 x 0.3 cm, lower mid, mixed cystic and solid, hypoechoic nodule, which is wider than ta ll, with smooth margins, with echogenic foci. TR 4. Stable from prior exam. Prior size: 0.5 x 0.3 x 0.4 cm ISTHMUS: # of nodules measured in the isthmus: 0 Bilateral neck scanned, no evidence of lymphadenopathy. IMPRESSION: Redemonstration of bilateral subcentimeter TR 4 nodules. The right has marginally increased in size. Consider follow-up ultrasound in one year.
== END | disposition home or self-care (01) ==
LOC: RADUSWWP 13:54
PROVIDERS: ATTEND Internal Medicine Endocrinology, Diabetes & Metabolism
DX: E04.2 Nontoxic multinodular goiter (principal); E03.8 Other specified hypothyroidism
CPT/HCPCS: 36415; 76536; 84443

== ENCOUNTER 2024-02-20 07:30 | Emergency (ER) | payer OTHER ==
[2024-02-20 07:36] VITALS: RESP 18
--- NOTE | 2024-02-20 07:59 | ED ---
General Adult HPI - General Chief complaint: Extremity Problem,Nontraumatic Stated complaint: Leg swelling, pain, irritation Time Seen by Provider: 02/20/24 07:40 Source: patient, RN notes reviewed, old records reviewed Mode of arrival: ambulatory Limitations: no limitations - History of Present Illness Initial comments: Patient is a 53-year-old female who presents emergency department complaining of leg pain. Primarily in the left lower extremity. Is having some calf as well as anterior tib-fib pain. No trauma. Has been ongoing for a month. Patient does have family medical history of blood clots. Also endorses intermittent pain on the right lower extremity. Has been attempted to contact her vascular surgeon however unable to reach them. Presents for evaluation at this time. Denies chest pain or shortness of breath. Denies skin changes, fevers, chills. No other acute complaints. This pain is atraumatic and not related to activity. Denies any cold extremities. Presents for further evaluation. - Related Data Home Medications Medication Instructions Recorded Confirmed Atorvastatin [Lipitor] 20 mg PO DAILY 05/05/23 05/05/23 Levothyroxine Sodium [Synthroid] 100 mcg PO DAILY 05/05/23 05/05/23 Previous Rx's Medication Instructions Recorded Cyclobenzaprine [Flexeril] 10 mg PO HS #21 tab 05/09/23 HYDROcodone/APAP 10-325MG [[place] 1 tab PO Q6HR PRN 7 Days #28 tab 05/09/23 10-325] Indomethacin [Indocin] 50 mg PO BID 14 Days #28 cap 05/09/23 cefaDROXiL [Duricef] 500 mg PO Q12HR 5 Days #10 cap 05/09/23 Allergies Allergy/AdvReac Type Severity Reaction Status Date / Time gabapentin Allergy Anaphylaxis Verified 02/20/24 07:36 naproxen [From Naprosyn] Allergy Unknown Verified 02/20/24 07:36 Penicillins Allergy Rash/Hives Verified 02/20/24 07:36 pregabalin [From Lyrica] Allergy Anaphylaxis Verified 02/20/24 07:36 Review of Systems ROS Statement: Those systems with pertinent positive or pertinent negative responses have been documented in the HPI. Review of Systems: CONST: Denies fever EYES: Denies blurry vision ENT: Denies nasal congestion C/V: Denies Chest pain RESP: Denies shortness of breath GI: Denies abdominal pain : Denies dysuria SKIN: Denies rash. MSK: Endorses leg pain NEURO: Denies headache ROS Other: All systems not noted in ROS Statement are negative. 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 History of Any Multi-Drug Resistant Organisms: None Reported Past Surgical History: Appendectomy, Cholecystectomy, Hysterectomy, Joint Replacement Additional Past Surgical History / Comment(s): D&C, vein removal, Left hip replacement Past Anesthesia/Blood Transfusion Reactions: No Reported Reaction Past Psychological History: No Psychological Hx Reported Smoking Status: Former smoker, Never smoker Past Alcohol Use History: None Reported Past Drug Use History: Marijuana - Past Family History Mother Family Medical History: No Reported History General Exam - General Exam Comments Initial Comments: General: Appears in no acute distress. HEAD: Normal with no signs of head trauma. EYES: EOMI ENT: Hearing grossly intact, normal oropharynx. RESPIRATORY: Clear breath sounds bilaterally. No wheezes, rales, or rhonchi. C/V: Regular rate and rhythm. S1 and S2 auscultated, no edema, peripheral pulses 2+ and intact throughout ABD: Abd is soft, nontender, nondistended EXT: Normal range of motion, no obvious deformity. Warm extremities. No skin changes. Neurovascularly intact. Some mild tenderness to palpation over the posterior left calf. SKIN: No rashes or lesions observed on exposed skin. NEURO: Alert and oriented x 4. Limitations: no limitations Course Vital Signs 02/20/24 02/20/24 02/20/24 07:32 09:16 09:17 Temperature 97.8 F 98.2 F 98.2 F Pulse Rate 68 60 60 Respiratory 18 18 18 Rate Blood Pressure 126/77 102/63 102/63 O2 Sat by Pulse 98 99 99 Oximetry Medical Decision Making - Medical Decision Making Was pt. sent in by a medical professional or institution (, PA, KENNEL AIDE, urgent care, hospital, or [facility]...) When possible be specific @ -No Did you speak to anyone other than the patient for history (EMS, parent, family, police, friend...)? What history was obtained from this source @ -No Did you review nursing and triage notes (agree or disagree)? Why? @ -I reviewed and agree with nursing and triage notes Were old charts reviewed (outside hosp., previous admission, EMS record, old E KG, old radiological studies, urgent care reports/EKG's, [facility] records)? Report findings @ -No old charts were reviewed Differential Diagnosis (chest pain, altered mental status, abdominal pain women, abdominal pain men, vaginal bleeding, weakness, fever, dyspnea, syncope, headache, dizziness, GI bleed, back pain, seizure, CVA, palpatations, mental health, musculoskeletal)? @ -DVT, electrolyte abnormality, muscle spasms, muscle cramps, claudication. This list is not all inclusive. EKG interpreted by me (3pts min.). @ -None done X-rays interpreted by me (1pt min.). @ -None done CT interpreted by me (1pt min.). @ -None done U/S interpreted by me (1pt. min.). @ -Venous duplex ultrasound negative for DVT bilaterally. What testing was considered but not performed or refused? (CT, X-rays, U/S, labs)? Why? @ -None What meds were considered but not given or refused? Why? @ -Offered analgesia medications such were declined. Did you discuss the management of the patient with other professionals (professionals i.e. , PA, KENNEL AIDE, lab, RT, psych nurse, rn social services, animal science professor, teacher, commanding officer garage, counseling case manager)? Give summary @ -No Was smoking cessation discussed for >3mins.? @ -No Was critical care preformed (if so, how long)? @ -No Were there social determinants of health that impacted care today? How? (Homelessness, low income, unemployed, alcoholism, drug addiction, transportation, low edu. Level, literacy, decrease access to med. care, senior care, rehab)? @ -No Was there de-escalation of care discussed even if they declined (Discuss DNR or withdrawal of care, Hospice)? DNR status @ -No What co-morbidities impacted this encounter? (DM, HTN, Smoking, COPD, CAD, Can cer, CVA, ARF, Chemo, Hep., AIDS, mental health diagnosis, sleep apnea, morbid obesity)? @ -None Was patient admitted / discharged? Hospital course, mention meds given and route, prescriptions, significant lab abnormalities, going to OR and other pertinent info. @ -Patient presents with atraumatic calf and leg pain. Concern for blood clot. We will obtain venous duplex ultrasounds of bilateral lower extremities as well as basic labs. Vitals are within acceptable limits. No concern for PE at this time as patient has no chest pain or shortness of breath. She was in agreement with this plan. She declines analgesia medications. She will be given an ice pack. Ultrasound negative for DVT. Labs unremarkable with no electrolyte abnormalities. I discussed results with patient. I believe it is safer to be discharged home with follow-up with her specialist and PCP and she was in agreement this plan. Pain has been ongoing for a month. I instructed the patient to follow up with their PCP in the next 1-3 days. I explained that the patient should return to the emergency department if they experience any worsening symptoms. Strict return precautions were discussed with the patient. The patient expressed understanding of these instructions. I answered all questions that the patient had. The patient was discharged home in good condition with their prescriptions and follow up information. Undiagnosed new problem with uncertain prognosis? @ -No Drug Therapy requiring intensive monitoring for toxicity (Heparin, Nitro, Insulin, Cardizem)? @ -No Were any procedures done? @ -No Diagnosis/symptom? @ -Leg pain Acute, or Chronic, or Acute on Chronic? @ -Acute on chronic Uncomplicated (without systemic symptoms) or Complicated (systemic symptoms)? @ -Uncomplicated Side effects of treatment? @ -None Exacerbation, Progression, or Severe Exacerbation] @ -No Poses a threat to life or bodily function? @ -Unlikely - Lab Data Result diagrams: 02/20/24 07:54 02/20/24 07:54 Lab Results 02/20/24 02/20/24 Range/Units 07:54 07:54 WBC 7.4 (3.8-10.6) k/uL RBC 4.41 (3.80-5.40) m/uL Hgb 14.6 (11.4-16.0) gm/dL Hct 42.4 (34.0-46.0) % MCV 96.2 (80.0-100.0) fL MCH 33.0 (25.0-35.0) pg MCHC 34.3 (31.0-37.0) g/dL RDW 11.7 (11.5-15.5) % Plt Count 222 (150-450) k/uL MPV 7.8 Neutrophils % 50 % Lymphocytes % 36 % Monocytes % 5 % Eosinophils % 5 % Basophils % 0 % Neutrophils # 3.7 (1.3-7.7) k/uL Lymphocytes # 2.6 (1.0-4.8) k/uL Monocytes # 0.4 (0-1.0) k/uL Eosinophils # 0.4 (0-0.7) k/uL Basophils # 0.0 (0-0.2) k/uL Sodium 140 (137-145) mmol/L Potassium 4.2 (3.5-5.1) mmol/L Chloride 110 H (98-107) mmol/L Carbon Dioxide 29 (22-30) mmol/L Anion Gap 1 mmol/L BUN 12 (7-17) mg/dL Creatinine 0.71 (0.52-1.04) mg/dL Est GFR (CKD-EPI)AfAm >90 (>60 ml/min/1.73 sqM) Est GFR (CKD-EPI)NonAf >90 (>60 ml/min/1.73 sqM) Glucose 72 L (74-99) mg/dL Calcium 9.5 (8.4-10.2) mg/dL Disposition Clinical Impression: Leg pain Disposition: HOME SELF-CARE Condition: Good Instructions (If sedation given, give patient instructions): Leg Pain (ED) Is patient prescribed a controlled substance at d/c from ED?: No Referrals: Saundra Kulkarni MD [Primary Care Provider] - 1-2 days Time of Disposition: 09:04
[2024-02-20 08:08] LABS: Basophils % (A) 0 %; Eosinophils # (A) 0.4 k/uL (0-0.7); Eosinophils % (A) 5 %; HCT 42.4 % (34.0-46.0); HGB 14.6 gm/dL (11.4-16.0); Lymphocytes # (A) 2.6 k/uL (1.0-4.8); Lymphocytes % (A) 36 %; MCHC 34.3 g/dL (31.0-37.0); MCV 96.2 fL (80.0-100.0); Mean Platelet Volume 7.8; Monocytes # (A) 0.4 k/uL (0-1.0); Monocytes % (A) 5 %; Neutrophils # (A) 3.7 k/uL (1.3-7.7); Neutrophils % (A) 50 %; Platelet Count 222 k/uL (150-450); RBC 4.41 m/uL (3.80-5.40); RDW 11.7 % (11.5-15.5); WBC 7.4 k/uL (3.8-10.6)
--- NOTE | 2024-02-20 08:47 | US ---
EXAMINATION TYPE: US venous doppler duplex LE DATE OF EXAM: 02/20/2024 7:49 AM COMPARISON: 2017 [facility] CLINICAL INDICATION: Female, 53 years old with history of BL calf pain; SIDE PERFORMED: Bilateral TECHNIQUE: The lower extremity deep venous system is examined utilizing real time linear array sonog amaris with graded compression, doppler sonography and color-flow sonography. VESSELS IMAGED: Common Femoral Vein Deep Femoral Vein Greater Saphenous Vein * Femoral Vein Popliteal Vein Small Saphenous Vein * Proximal Calf Veins (* superficial vessels) The deep venous systems of both lower extremities from the common femoral remains to the proximal cynthia f veins are patent and compressible with augmentable flow and with normal waveforms. IMPRESSION: No evidence of bilateral lower extremity DVT from the common femoral veins to the proximal calf veins [facility], Workstation: PROMISE 02/20/2024 8:44 AM
[2024-02-20 08:50] LABS: African American GFR (CKD) >90 (>60 ml/min/1.73 sqM); Anion Gap 1 mmol/L; Blood Urea Nitrogen 12 mg/dL (7-17); Calcium 9.5 mg/dL (8.4-10.2); Carbon Dioxide 29 mmol/L (22-30); Chloride 110 mmol/L (98-107); Glucose 72 mg/dL (74-99); Non-African American GFR(CKD) >90 (>60 ml/min/1.73 sqM); Potassium 4.2 mmol/L (3.5-5.1); Sodium 140 mmol/L (137-145)
[2024-02-20 09:17] VITALS: BP 102/63; PULSE 60; TEMP 98.2
== END 2024-02-20 09:20 | disposition home or self-care (01) ==
LOC: EC 07:30
CPT/HCPCS: 36415; 80048; 85025; 93970; 99284

== ENCOUNTER → 2024-03-28 | Outpatient (CLI) | payer OTHER ==
--- NOTE | 2024-03-28 14:44 | US ---
EXAMINATION TYPE: US thyroid st tissue head/neck DATE OF EXAM: 03/28/2024 COMPARISON: NONE CLINICAL INDICATION: Female, 53 years old with history of E03.9 ACQUIRED HYPOTHYROIDISM; F/U TECHNIQUE: Grayscale and color Doppler imaging of the thyroid gland. FINDINGS: GLAND SIZE: Right Lobe: 3.6x1.5x1.0 cm Overall Parenchyma: heterogeneous Left Lobe: 3.5x1.6x1.3 cm Overall Parenchyma: heterogeneous Isthmus Thickness: 0.2 cm NODULES RIGHT: # of nodules measured on right: 1 1. 0.8 X 0.8 x 0.6 cm, upper lateral, solid or almost completely solid, hypoechoic nodule, which is wider than tall, with smooth margins, without echogenic foci. Prior size: 0.9 x 0.7 x 0.7 cm NOTE: this area appears to be extrathyroidal ?lymph node or parathyroid? LEFT: # of nodules measured on left: 0 ISTHMUS: # of nodules measured in the isthmus: 0 Bilateral neck scanned, no evidence of lymphadenopathy. IMPRESSION: 1. Subcentimeter bilateral thyroid nodularity. 2. Lymph node or prominent parathyroid within the right neck. Correlate clinically. 2017 ACR TI-RADS LEVEL: *Highest TI-RADS level nodule reported [email or web address] [facility], , 03/28/2024 2:42 PM
== END | disposition home or self-care (01) ==
LOC: RADUSWWP 13:45
PROVIDERS: ATTEND Internal Medicine
DX: E03.9 Hypothyroidism, unspecified (principal); E04.1 Nontoxic single thyroid nodule; R59.0 Localized enlarged lymph nodes
CPT/HCPCS: 76536

== ENCOUNTER 2024-04-07 14:28 | Emergency (ER) | payer OTHER ==
[2024-04-07 15:03] VITALS: RESP 18
--- NOTE | 2024-04-07 15:35 | ED ---
ENT HPI - General Source: patient, RN notes reviewed Mode of arrival: ambulatory Limitations: no limitations - History of Present Illness MD complaint: difficulty swallowing Onset/Timin -: days(s) Location: throat <Papa Mitchell - Last Filed: 04/07/24 15:33> <Abbie Rucker - Last Filed: 04/07/24 20:38> - General Chief complaint: ENT Stated complaint: Throat pain Time Seen by Provider: 04/07/24 14:40 - History of Present Illness Initial comments: Quick note: This is a 53-year-old female complaining of difficulty swallowing and throat irritation since this morning. Patient states it feels like a marble is in the right side of her throat. Endorses recent thyroid ultrasound revealing nodules/goiter. Patient states she is awaiting orders for a CT scan for her neck primary primary care. States she was advised by primary care to go to the ER for a CT scan considering that her symptoms have progressed, preventing her from taking her daily medication/tablets. (Papa Mitchell) This is a 53-year-old female history of hypertension and hypothyroidism on Synthroid presenting to the emergency department for chief complaint of foreign body sensation in her throat. Patient has been treated for hypothyroidism over the past 4 years however recently underwent ultrasound about 3 weeks ago which revealed that she had multiple enlarged nodules on her thyroid. Patient is scheduled for outpatient CT scan in the next few weeks. Patient states that she contacted her primary care provider today when she informed report to the emergency department for further evaluation with request for CT scan. Patient denies sore throat, fevers, chills, cough, congestion, rhinorrhea. (Abbie Rucker) - Related Data Home Medications Medication Instructions Recorded Confirmed Atorvastatin [Lipitor] 20 mg PO DAILY 05/05/23 05/05/23 Levothyroxine Sodium [Synthroid] 100 mcg PO DAILY 05/05/23 05/05/23 Previous Rx's Medication Instructions Recorded Cyclobenzaprine [Flexeril] 10 mg PO HS #21 tab 05/09/23 HYDROcodone/APAP 10-325MG [[place] 1 tab PO Q6HR PRN 7 Days #28 tab 05/09/23 10-325] Indomethacin [Indocin] 50 mg PO BID 14 Days #28 cap 05/09/23 cefaDROXiL [Duricef] 500 mg PO Q12HR 5 Days #10 cap 05/09/23 Allergies Allergy/AdvReac Type Severity Reaction Status Date / Time gabapentin Allergy Anaphylaxis Verified 04/07/24 14:59 naproxen [From Naprosyn] Allergy Unknown Verified 04/07/24 14:59 Penicillins Allergy Rash/Hives Verified 04/07/24 14:59 pregabalin [From Lyrica] Allergy Anaphylaxis Verified 04/07/24 14:59 Review of Systems ROS Other: All systems not noted in ROS Statement are negative. <Papa Mitchell - Last Filed: 04/07/24 15:33> ROS Other: All systems not noted in ROS Statement are negative. <Abbie Rucker - Last Filed: 04/07/24 20:38> ROS Statement: Those systems with pertinent positive or pertinent negative responses have been documented in the HPI. 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 History of Any Multi-Drug Resistant Organisms: None Reported Past Surgical History: Appendectomy, Cholecystectomy, Hysterectomy, Joint Replacement Additional Past Surgical History / Comment(s): D&C, vein removal, Left hip replacement Past Anesthesia/Blood Transfusion Reactions: No Reported Reaction Past Psychological History: No Psychological Hx Reported Smoking Status: Former smoker Past Alcohol Use History: None Reported Past Drug Use History: Marijuana - Past Family History Mother Family Medical History: No Reported History <Papa Mitchell - Last Filed: 04/07/24 15:33> General Exam Limitations: no limitations <Papa Mitchell - Last Filed: 04/07/24 15:33> - General Exam Comments Initial Comments: Visual Physical Exam Vital signs reviewed General: Well-appearing, nontoxic, no acute distress. Head: Normocephalic, atraumatic Eyes: PERRLA, EOMI ENT: Airway patent Chest: Nonlabored breathing Skin: No visual rash, normal skin tone Neuro: Alert and oriented 3 Musculoskeletal: No gross abnormalities (Papa Mitchell) Course Vital Signs 04/07/24 04/07/24 14:59 18:58 Temperature 98.2 F 98.3 F Pulse Rate 81 57 L Respiratory 18 18 Rate Blood Pressure 101/63 114/70 O2 Sat by Pulse 99 100 Oximetry Medical Decision Making <Papa Mitchell - Last Filed: 04/07/24 15:33> - Lab Data Result diagrams: 04/07/24 17:31 04/07/24 17:31 <Abbie Rucker - Last Filed: 04/07/24 20:38> - Medical Decision Making I completed the quick note portion of this chart signed HOLLEY Sánchez (Papa Mitchell) Was pt. sent in by a medical professional or institution (LEDY Pollack, SCREEN AND CYCLONE REPAIRER, urgent care, hospital, or intermediate...) When possible be specific @ -No Did you speak to anyone other than the patient for history (EMS, parent, family, police, friend...)? What history was obtained from this source @ -No Did you review nursing and triage notes (agree or disagree)? Why? @ -I reviewed and agree with nursing and triage notes Were old charts reviewed (outside hosp., previous admission, EMS record, old EKG, old radiological studies, urgent care reports/EKG's, intermediate records)? Report findings @ -No old charts were reviewed Differential Diagnosis (chest pain, altered mental status, abdominal pain women, abdominal pain men, vaginal bleeding, weakness, fever, dyspnea, syncope, headache, dizziness, GI bleed, back pain, seizure, CVA, palpatations, mental health, musculoskeletal)? @ -Differential Dyspnea: Coronary syndrome, arrhythmia, tamponade, asthma, COPD, pulmonary embolism, pneumonia, pneumothorax, pulmonary effusion, anaphylaxis, diabetic ketoacidosis, flailed chest, pulmonary contusion, diaphragmatic rupture, anemia, neuromuscular, this is not meant to be an all-inclusive list. EKG interpreted by me (3pts min.). @ -none X-rays interpreted by me (1pt min.). @ -None CT interpreted by me (1pt min.). @ -CT soft tissue of the neck with IV contrast reveals no suspicious abnormality accounting for foreign body sensation, thyroid is visualized as normal with no enlarged or suspicious mass identified U/S interpreted by me (1pt. min.). @ -None done What testing was considered but not performed or refused? (CT, X-rays, U/S, labs)? Why? @ -None What meds were considered but not given or refused? Why? @ -None Did you discuss the management of the patient with other professionals (professionals i.e. , PA, SCREEN AND CYCLONE REPAIRER, lab, RT, psych nurse, director of social media marketing, copy manager, teacher, attendance officer, machine adjuster leader case trim)? Give summary @ -No Was smoking cessation discussed for >3mins.? @ -No Was critical care preformed (if so, how long)? @ -No Were there social determinants of health that impacted care today? How? (Homelessness, low income, unemployed, alcoholism, drug addiction, transportation, low edu. Level, literacy, decrease access to med. care, halfway, rehab)? @ -No Was there de-escalation of care discussed even if they declined (Discuss DNR or withdrawal of care, Hospice)? DNR status @ -No What co-morbidities impacted this encounter? (DM, HTN, Smoking, COPD, CAD, Cancer, CVA, ARF, Chemo, Hep., AIDS, mental health diagnosis, sleep apnea, morbid obesity)? @ -None Was patient admitted / discharged? Hospital course, mention meds given and route, prescriptions, significant lab abnormalities, going to OR and other pertinent info. @ -Discharge. 50-year-old female with foreign body sensation in throat. On my evaluation of the patient she is resting comfortably in no signs of acute distress. Her vitals are stable. She is not exhibiting signs of respiratory distress, non-stridorus breathing. Patient's laboratory studies unremarkable, CT unremarkable for acute process. Patient states that she has outpatient appointment scheduled primary care provider for further evaluation. Discussed with Dr. Chavez Undiagnosed new problem with uncertain prognosis? @ -No Drug Therapy requiring intensive monitoring for toxicity (Heparin, Nitro, Insulin, Cardizem)? @ -No Were any procedures done? @ -No Diagnosis/symptom? @ -foreign body sensation in throat Acute, or Chronic, or Acute on Chronic? @ -Acute Uncomplicated (without systemic symptoms) or Complicated (systemic symptoms)? @ -uncomplicated Side effects of treatment? @ -No Exacerbation, Progression, or Severe Exacerbation? @ -No Poses a threat to life or bodily function? How? (Chest pain, USA, ID, pneumonia, PE, COPD, DKA, ARF, appy, cholecystitis, CVA, Diverticulitis, Homicidal, Suicida l, threat to staff... and all critical care pts) @ -No (Stieler,Abbie) - Lab Data Lab Results 04/07/24 04/07/24 Range/Units 17:31 17:31 WBC 7.2 (3.8-10.6) k/uL RBC 4.19 (3.80-5.40) m/uL Hgb 14.0 (11.4-16.0) gm/dL Hct 40.5 (34.0-46.0) % MCV 96.5 (80.0-100.0) fL MCH 33.3 (25.0-35.0) pg MCHC 34.5 (31.0-37.0) g/dL RDW 11.7 (11.5-15.5) % Plt Count 236 (150-450) k/uL MPV 7.1 Neutrophils % 42 % Lymphocytes % 44 % Monocytes % 6 % Eosinophils % 5 % Basophils % 1 % Neutrophils # 3.1 (1.3-7.7) k/uL Lymphocytes # 3.2 (1.0-4.8) k/uL Monocytes # 0.4 (0-1.0) k/uL Eosinophils # 0.4 (0-0.7) k/uL Basophils # 0.1 (0-0.2) k/uL Sodium 138 (137-145) mmol/L Potassium 4.1 (3.5-5.1) mmol/L Chloride 106 (98-107) mmol/L Carbon Dioxide 28 (22-30) mmol/L Anion Gap 4 mmol/L BUN 16 (7-17) mg/dL Creatinine 0.74 (0.52-1.04) mg/dL Est GFR (CKD-EPI)AfAm >90 (>60 ml/min/1.73 sqM) Est GFR (CKD-EPI)NonAf >90 (>60 ml/min/1.73 sqM) Glucose 88 (74-99) mg/dL Calcium 9.2 (8.4-10.2) mg/dL Magnesium 1.9 (1.6-2.3) mg/dL Total Bilirubin 0.2 (0.2-1.3) mg/dL AST 28 (14-36) U/L ALT 20 (4-34) U/L Alkaline Phosphatase 96 (38-126) U/L Total Protein 6.4 (6.3-8.2) g/dL Albumin 4.2 (3.5-5.0) g/dL Disposition <Papa Mitchell - Last Filed: 04/07/24 15:33> Is patient prescribed a controlled substance at d/c from ED?: No Time of Disposition: 18:36 <Abbie Rucker - Last Filed: 04/07/24 20:38> Clinical Impression: Foreign body sensation in throat Disposition: HOME SELF-CARE Condition: Stable Instructions (If sedation given, give patient instructions): Hypothyroidism (ED) Additional Instructions: Please return to the Emergency Department if symptoms worsen or any other concerns. Continue to follow-up as scheduled with primary care provider for further evaluation. Referrals: Saundra Kulkarni MD [Primary Care Provider] - 1-2 days
[2024-04-07 17:55] LABS: Basophils # (A) 0.1 k/uL (0-0.2); Basophils % (A) 1 %; Eosinophils # (A) 0.4 k/uL (0-0.7); Eosinophils % (A) 5 %; HCT 40.5 % (34.0-46.0); Lymphocytes # (A) 3.2 k/uL (1.0-4.8); Lymphocytes % (A) 44 %; MCH 33.3 pg (25.0-35.0); MCHC 34.5 g/dL (31.0-37.0); MCV 96.5 fL (80.0-100.0); Mean Platelet Volume 7.1; Monocytes # (A) 0.4 k/uL (0-1.0); Monocytes % (A) 6 %; Neutrophils # (A) 3.1 k/uL (1.3-7.7); Neutrophils % (A) 42 %; Platelet Count 236 k/uL (150-450); RBC 4.19 m/uL (3.80-5.40); RDW 11.7 % (11.5-15.5); WBC 7.2 k/uL (3.8-10.6)
--- NOTE | 2024-04-07 18:15 | CT ---
EXAMINATION TYPE: CT soft tissue neck w con DATE OF EXAM: 04/07/2024 5:54 PM COMPARISON: None. CLINICAL INDICATION: Female, 53 years old with history of foreign body sensation, hx goiter, FB sensa tion, hx of goiter TECHNIQUE: Axial images at 3 mm thick sections. Reconstructed images in the coronal plane and sagitt al plane are reviewed. Contrast used:100 mL of Isovue 300 with IV Contrast, (none if empty) Oral contrast used: (none if empty) CT DLP: 165.4 mGycm, Automated exposure control for dose reduction was used. FINDINGS: 06/05/[address] sections are obtained the lung apices. The lung apices appear clear. Emphysematous change s may be present. CT neck: The torus tubarius and fossa of Rosenmuller are normal. Pump Installation And Servicer spaces are normal. Muco faraz thickening or retention cysts within the inferior maxillary sinuses. Paranasal sinuses and mastoi d air cells are otherwise clear within the [id number] Parotid glands appear normal and symmetrical. Submandibular glands, are normal. Parapharyngeal spac es are normal. No suspicious adenopathy is evident. Submental space appears normal. Large jugulodiga stric differential enlarged lymphadenopathy. The hypopharynx appears within normal limits. Vocal cord level appear symmetrical. Thyroid as visualized is normal. No enlargement or suspicious mass is identified. Anterior cervical fusion is evident. The prevertebral space appears normal. IMPRESSION: 1. No suspicious abnormality account for foreign body sensation. [facility], , 04/07/2024 6:13 PM
[2024-04-07 18:28] LABS: ALT 20 U/L (4-34); AST 28 U/L (14-36); African American GFR (CKD) >90 (>60 ml/min/1.73 sqM); Albumin 4.2 g/dL (3.5-5.0); Alkaline Phosphatase 96 U/L (38-126); Anion Gap 4 mmol/L; Blood Urea Nitrogen 16 mg/dL (7-17); Calcium 9.2 mg/dL (8.4-10.2); Carbon Dioxide 28 mmol/L (22-30); Chloride 106 mmol/L (98-107); Glucose 88 mg/dL (74-99); Magnesium 1.9 mg/dL (1.6-2.3); Non-African American GFR(CKD) >90 (>60 ml/min/1.73 sqM); Potassium 4.1 mmol/L (3.5-5.1); Sodium 138 mmol/L (137-145); Total Bilirubin 0.2 mg/dL (0.2-1.3); Total Protein 6.4 g/dL (6.3-8.2)
[2024-04-07 18:59] VITALS: BP 114/70; PULSE 57; TEMP 98.3
== END 2024-04-07 18:59 | disposition home or self-care (01) ==
LOC: EC 14:28
DX: R09.A2 Foreign body sensation, throat (principal); Z87.891 Personal history of nicotine dependence; Z88.0 Allergy status to penicillin; Z88.6 Allergy status to analgesic agent; Z88.8 Allergy status to other drugs, medicaments and biological substances
CPT/HCPCS: 36415; 80053; 83735; 85025; 70491; 99283; Q9967